=== PATIENT | female | born 1950 | race Caucasian/White ===

== ENCOUNTER 2024-06-16 10:01 | Inpatient (IN) | payer OTHER, SELFPAY ==
[2024-06-16] VITALS (34 sets, daily range): BP systolic 119–150; BP diastolic 51–82; PULSE 2–102
[2024-06-16 05:58] LABS: Glucose - Point of Care 160 mg/dl (70-99)
--- NOTE | 2024-06-16 06:00 | ED.GENMED ---
History of Present Illness
<Alexy Thorne, DO - Last Filed: 06/16/24 06:02>
General
Chief Complaint: Change in Mental Status
Source: family and ambulance crew
Time Seen by Provider: 06/16/24 06:09
Nursing documentation reviewed up to this point in time: agreed with
History of Present Illness
History of Present Illness:
74-year-old female presents to the emergency department with altered mental status. Patient
Vital signs are stable. Patient not hypoxic
Nursing note reviewed. I agree with nursing documentation up to this point in time.
Home Meds and allergies reviewed.
NUMBER AND COMPLEXITY OF PROBLEMS ADDRESSED AT THE ENCOUNTER
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
� Acute Exacerbation and/or Progression of Chronic Illness:
� Differential Diagnosis includes: TIA, CVA, infectious process including but not limited to UTI, pneumonia, aspiration pneumonia
AMOUNT AND/OR COMPLEXITY OF DATA TO BE REVIEWED AND ANALYZED
I performed an independent evaluation of the following and my interpretation is:
EKG: EKG shows sinus tachycardia rate of 101 with normal intervals. QTc is 469 corrected. Normal axis. No evidence of acute ischemia present. When compared with previous EKG dated September 2006, no obvious morphological changes
noted.
Pulse Ox: 79% on room air
Offbearer Sewer Pipe: Sinus Rhythm
CT:
X-rays:
Ultrasound:
Laboratory Studies:
Other:
Review of other/old records:
Clinical information was obtained by an independent historian:
Prescriptions/Medications Considered but not given:
Further testing considered but not performed:
RISK OF COMPLICATIONS AND/OR MORBIDITY OR MORTALITY OF PATIENT MANAGEMENT
Social determinants of health affecting care: Good Social Support
Discussion with other providers:
Escalation of care including admission/observation vs risk of discharge considered: After being observed in the emergency department, patient is unstable for discharge.
CRITICAL CARE NOTE:
Total Time (exclusive of procedures):
Update:
<Caesar Small DO - Last Filed: 06/16/24 13:04>
History of Present Illness
History of Present Illness:
74-year-old female presents to the emergency department with altered mental status. Patient
Vital signs are stable. Patient not hypoxic
Nursing note reviewed. I agree with nursing documentation up to this point in time.
Home Meds and allergies reviewed.
NUMBER AND COMPLEXITY OF PROBLEMS ADDRESSED AT THE ENCOUNTER
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
� Acute Exacerbation and/or Progression of Chronic Illness:
� Differential Diagnosis includes: TIA, CVA, infectious process including but not limited to UTI, pneumonia, aspiration pneumonia
AMOUNT AND/OR COMPLEXITY OF DATA TO BE REVIEWED AND ANALYZED
I performed an independent evaluation of the following and my interpretation is:
EKG: EKG shows sinus tachycardia rate of 101 with normal intervals. QTc is 469 corrected. Normal axis. No evidence of acute ischemia present. When compared with previous EKG dated September 2006, no obvious morphological changes
noted.
Pulse Ox: 79% on room air
Offbearer Sewer Pipe: Sinus Rhythm
CT:
X-rays:
Ultrasound:
Laboratory Studies:
Other:
Review of other/old records:
Clinical information was obtained by an independent historian:
Prescriptions/Medications Considered but not given:
Further testing considered but not performed:
RISK OF COMPLICATIONS AND/OR MORBIDITY OR MORTALITY OF PATIENT MANAGEMENT
Social determinants of health affecting care: Good Social Support
Discussion with other providers:
Escalation of care including admission/observation vs risk of discharge considered: After being observed in the emergency department, patient is unstable for discharge.
CRITICAL CARE NOTE:
Total Time (exclusive of procedures):
Update:
714 74-year-old female presents with her who states that over the last 2 to 3 days she has just been weak. Sort of staring off. states he was sick starting on Friday. He states he was really sick and had fevers and chills. She
started not feeling well about 2 days ago. Today he realized he had a bring her to the hospital and when he rolled over to get changed she vomited. The patient does have a history of a brain bleed in the past. No diarrhea noted. Is on chronic
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 Reportedly was hypoxic for EMS.
Past History
<Caesar Small, DO - Last Filed: 06/16/24 13:04>
Past History
ED Past Medical History: Other (CVA/intracranial hemorrhage, post-CVA neuropathic pain)
Social History
Living: with family
Phy Exam
<Caesar Small, DO - Last Filed: 06/16/24 13:04>
Physical Exam
Physical Exam:
CONSTITUTIONAL Patient alert and oriented to person. ill-appearing. Vital signs reviewed.
HEAD atraumatic, normocephalic.
EYES eyelids normal to inspection, Extraocular muscles intact, Conjunctiva normal, Sclera normal.
NECK normal range of motion, Trachea midline, no jugular venous distention.
RESPIRATORY CHEST No respiratory distress noted, Chest expansion equal
ABDOMEN abdomen nontender, Bowel sounds normal. No distention.
BACK normal inspection, no obvious deformities
UPPER EXTREMITY no cyanosis, no edema.
LOWER EXTREMITY range of motion normal, Motor strength normal, no cyanosis, no edema.
NEURO Speech normal, No focal motor deficits, Cranial Nerves intact to screening exam.
SKIN skin warm, dry, and normal in color.
Sepsis
Ivanlt;Alexy Thorne, DO - Last Filed: 06/16/24 06:02>
Sepsis Screen
Sepsis Screen: Possible Sepsis
Date: 06/16/24
Time: 06:00
<Caesar Small, DO - Last Filed: 06/16/24 13:04>
Sepsis Screening
Sepsis Assessment: Sepsis Ruled Out
Sepsis Screen
Sepsis Screen: Sepsis Ruled Out
Date: 06/16/24
Time: 13:04
Course
<Alexy Thorne, DO - Last Filed: 06/16/24 06:02>
Orders/Labs/Results
Orders:
Orders
06/16/24 05:47
Electrocardiogram (*1) Stat
Reason for Study: Other
Other Reason for Exam: neuro symptoms
CT Head W/o Iv Contrast Urgent
Comment:
Reason For Exam: confusion, residual deficits from prev cva
Bedside Glucose- Treatment ONCE
Cardiac Monitoring- Treatment ONCE
EKG- Treatment ONCE
06/16/24 05:50
Ondansetron Injectable [Zofran] 4 mg .ROUTE .STK-MED ONE
06/16/24 05:54
Acetaminophen [Tylenol/Feverall] 650 mg RECTAL NOW STA
06/16/24 05:57
Complete Blood Count/With Diff Urgent
Comprehensive Metabolic Panel Urgent
Erythrocyte Sed Rate Urgent
NT-proBNP Urgent
PTT Urgent
Prothrombin Time Urgent
TSH Urgent
Troponin I Urgent
06/16/24 06:02
CR Chest Portable - 1 View Urgent
Comment:
Reason For Exam: resp distress
Reason Study Needs to be Portable: Unable to Transport
06/16/24 06:11
Ondansetron Injectable [Zofran] 4 mg .ROUTE .STK-MED ONE
Ondansetron Injectable [Zofran] 4 mg IV NOW STA
06/16/24 06:26
0.9% Sodium Chloride 500 ml [Nss] 500 ml IV BOLUS
06/16/24 06:36
COVID-19 Antigen Urgent
Source: Nasal Swab
Influenza A+B Rapid Molecular Urgent
TOMMY Source: Nasal Swab
Specimen Description:
06/16/24 07:09
Cefepime HCl [Maxipime] 1,000 mg IV NOW STA
MetroNIDAZOLE 500 MG/100 ML [Flagyl 500 mg] 100 ml IV NOW
06/16/24 07:16
Sterile Water [Sterile Water For Injection] 10 ml .ROUTE .STK-MED ONE
06/16/24 07:42
Oseltamivir Phosphate [Tamiflu] 75 mg PO NOW STA
06/16/24 09:42
Sputum Culture [Respiratory Culture/Gram Stain] Routine
TOMMY Source: Sputum
Specimen Description:
Ipratropium/Albuterol Sulfate [Duoneb] 3 ml INH R Q4HPRN PRN
06/16/24 09:44
Admit/Transfer Patient As Directed
Co-Sign Provider:
Level of Care: Inpatient admission
Assign to:: Telemetry
Physician / Group: Piter Andrade
Diagnosis: Hypoxemia, Flu
Reason for Telemetry: Arrhythmia
Date to Stop Telemetry: 06/19/24
Time to Stop Telemetry: 11:00
Reason for Hospitalization: Flu + CAP
Expected length of stay greater than two midnights?: Yes
ELOS- Estimated Length of Stay in days: 3
I certify the patient meets the requirements for IP care: Yes
PRN Pain Medication Management As Directed
May give lesser potent ordered pain med per pt: Yes
preference::
Protocol:: Medication orders for pain may be administered in a
manner that supports deferring to patient preference
when the pt is:
- Requesting an ordered lesser potent pain medication.
Least to most potent pain medications are defined
as: acetaminophen < NSAID < tramadol < opioids
(morphine, oxycodone, hydromorphone).
- Requesting a lesser dose of the same medication IF
ORDERED.
- Requesting a less intrusive route of administration
if both routes are prescribed by the provider (PO <
IV).
06/16/24 09:46
Code Status As Directed
Resuscitation Status: Full Code
06/16/24 09:47
Legionella Urinary Antigen Routine
TOMMY Source: Urine
Specimen Description:
06/16/24 Lunch
Regular
At Your Request: Non-Participating
CefTRIAXone [Rocephin] 1,000 mg IV Q24H
Doxycycline [Vibramycin] 100 mg PO Q12
Sterile Water [Sterile Water For Injection] 10 ml IV Q24H
06/16/24 10:14
Bisacodyl [Dulcolax] 10 mg RECTAL [id number] PRN
Docusate W/Senna [Senokot-S] 1 tablet PO BIDPRN PRN
Polyethylene Glycol Powder [Miralax] 17 grams PO DAILYPRN PRN
06/16/24 10:14
Activity As Directed
Activity Level: Out of Bed-Early Mobility
Intake/ Output As Directed
Frequency: Per unit guidelines
Vital Signs As Directed
Frequency: Per unit guidelines
O2 Therapy [RESP] Routine
Titrate/Wean O2 to maintain O2 sat greater than (%): 90
DX Deep Vein Thrombosis Video Routine
06/16/24 10:46
ABG [Arterial Blood Gas] Routine
%Oxygen/Room Air: 7L
06/16/24 11:00
Blood Culture Q30M
TOMMY Source: Blood/Venous
Specimen Description:
06/16/24 11:03
Blood Culture Q30M
TOMMY Source: Blood/Venous
Specimen Description:
MRSA Screen Routine
TOMMY Source: Nose
Specimen Description:
06/16/24 12:00
Clonazepam [Klonopin] 0.5 mg PO Q6H
Oxycodone Controlled Release [Oxycontin (Controlled Release)] 10 mg PO Q6H
Oxycodone Controlled Release [Oxycontin (Controlled Release)] 40 mg PO Q6H
06/16/24 18:00
Duloxetine Delayed Release [Cymbalta Delayed Release] 30 mg PO QPM
Enoxaparin Sodium [Lovenox] 40 mg SC QPM
06/17/24 06:00
Basic Metabolic Panel IN AM
Complete Blood Count/With Diff IN AM
Magnesium IN AM
Pantoprazole [Protonix] 40 mg PO DAILY@0600
06/17/24 08:00
Duloxetine Delayed Release [Cymbalta Delayed Release] 30 mg PO DAILY
06/19/24 11:00
DC Protocol for Telemetry ONCE
Abnormal Lab Results
06/16/24
05:57
MCHC 31.0 L g/dL
(33.0-37.0)
MPV 11.1 H fL
(7.4-10.4)
Absolute Lymphs (auto) 0.7 L 10^3/uL
(1.2-3.4)
Lymphocytes % 14.8 L %
(20.5-51.1)
Monocytes % 10.4 H %
(1.7-9.3)
ESR 26 H mm/hour
(0-20)
APTT 52.0 H Sec
(23.4-35.0)
Chloride 94 L mmol/L
(98-107)
Carbon Dioxide 38 H mmol/L
(22-30)
Creatinine 0.4 L mg/dL
(0.6-1.0)
Glucose 161 H mg/dl
(70-99)
Calcium 8.1 L mg/dl
(8.4-10.2)
POC Glucose 160 H mg/dl
(70-99)
06/16/24 05:57
06/16/24 05:57
Vital Signs
Initial and Last Documented VS:
Initial Vital Signs
Temp Pulse Resp BP Pulse Ox
101.7 F H 110 28 129/70 76
06/16/24 05:45 06/16/24 05:45 06/16/24 05:45 06/16/24 05:45 06/16/24 05:45
Last Documented Vital Signs
Temp Pulse Resp BP Pulse Ox
98.5 F 94 18 125/57 94
06/16/24 12:54 06/16/24 10:40 06/16/24 10:40 06/16/24 10:40 06/16/24 10:40
<Caesar Small, - Last Filed: 06/16/24 13:04>
Orders/Labs/Results
Orders:
Orders
06/16/24 05:47
Electrocardiogram (*1) Stat
Reason for Study: Other
Other Reason for Exam: neuro symptoms
CT Head W/o Iv Contrast Urgent
Comment:
Reason For Exam: confusion, residual deficits from prev cva
Bedside Glucose- Treatment ONCE
Cardiac Monitoring- Treatment ONCE
EKG- Treatment ONCE
06/16/24 05:50
Ondansetron Injectable [Zofran] 4 mg .ROUTE .STK-MED ONE
06/16/24 05:54
Acetaminophen [Tylenol/Feverall] 650 mg RECTAL NOW STA
06/16/24 05:57
Complete Blood Count/With Diff Urgent
Comprehensive Metabolic Panel Urgent
Erythrocyte Sed Rate Urgent
NT-proBNP Urgent
PTT Urgent
Prothrombin Time Urgent
TSH Urgent
Troponin I Urgent
06/16/24 06:02
CR Chest Portable - 1 View Urgent
Comment:
Reason For Exam: resp distress
Reason Study Needs to be Portable: Unable to Transport
06/16/24 06:11
Ondansetron Injectable [Zofran] 4 mg .ROUTE .STK-MED ONE
Ondansetron Injectable [Zofran] 4 mg IV NOW STA
06/16/24 06:26
0.9% Sodium Chloride 500 ml [Nss] 500 ml IV BOLUS
06/16/24 06:36
COVID-19 Antigen Urgent
Source: Nasal Swab
Influenza A+B Rapid Molecular Urgent
TOMMY Source: Nasal Swab
Specimen Description:
06/16/24 07:09
Cefepime HCl [Maxipime] 1,000 mg IV NOW STA
MetroNIDAZOLE 500 MG/100 ML [Flagyl 500 mg] 100 ml IV NOW
06/16/24 07:16
Sterile Water [Sterile Water For Injection] 10 ml .ROUTE .STK-MED ONE
06/16/24 07:42
Oseltamivir Phosphate [Tamiflu] 75 mg PO NOW STA
06/16/24 09:42
Sputum Culture [Respiratory Culture/Gram Stain] Routine
TOMMY Source: Sputum
Specimen Description:
Ipratropium/Albuterol Sulfate [Duoneb] 3 ml INH R Q4HPRN PRN
06/16/24 09:44
Admit/Transfer Patient As Directed
Co-Sign Provider:
Level of Care: Inpatient admission
Assign to:: Telemetry
Physician / Group: Piter Andrade
Diagnosis: Hypoxemia, Flu
Reason for Telemetry: Arrhythmia
Date to Stop Telemetry: 06/19/24
Time to Stop Telemetry: 11:00
Reason for Hospitalization: Flu + CAP
Expected length of stay greater than two midnights?: Yes
ELOS- Estimated Length of Stay in days: 3
I certify the patient meets the requirements for IP care: Yes
PRN Pain Medication Management As Directed
May give lesser potent ordered pain med per pt: Yes
preference::
Protocol:: Medication orders for pain may be administered in a
manner that supports deferring to patient preference
when the pt is:
- Requesting an ordered lesser potent pain medication.
Least to most potent pain medications are defined
as: acetaminophen < NSAID < tramadol < opioids
(morphine, oxycodone, hydromorphone).
- Requesting a lesser dose of the same medication IF
ORDERED.
- Requesting a less intrusive route of administration
if both routes are prescribed by the provider (PO <
IV).
06/16/24 09:46
Code Status As Directed
Resuscitation Status: Full Code
06/16/24 09:47
Legionella Urinary Antigen Routine
TOMMY Source: Urine
Specimen Description:
06/16/24 Lunch
Regular
At Your Request: Non-Participating
CefTRIAXone [Rocephin] 1,000 mg IV Q24H
Doxycycline [Vibramycin] 100 mg PO Q12
Sterile Water [Sterile Water For Injection] 10 ml IV Q24H
06/16/24 10:14
Bisacodyl [Dulcolax] 10 mg RECTAL [id number] PRN
Docusate W/Senna [Senokot-S] 1 tablet PO BIDPRN PRN
Polyethylene Glycol Powder [Miralax] 17 grams PO DAILYPRN PRN
06/16/24 10:14
Activity As Directed
Activity Level: Out of Bed-Early Mobility
Intake/ Output As Directed
Frequency: Per unit guidelines
Vital Signs As Directed
Frequency: Per unit guidelines
O2 Therapy [RESP] Routine
Titrate/Wean O2 to maintain O2 sat greater than (%): 90
DX Deep Vein Thrombosis Video Routine
06/16/24 10:46
ABG [Arterial Blood Gas] Routine
%Oxygen/Room Air: 7L
06/16/24 11:00
Blood Culture Q30M
TOMMY Source: Blood/Venous
Specimen Description:
06/16/24 11:03
Blood Culture Q30M
TOMMY Source: Blood/Venous
Specimen Description:
MRSA Screen Routine
TOMMY Source: Nose
Specimen Description:
06/16/24 12:00
Clonazepam [Klonopin] 0.5 mg PO Q6H
Oxycodone Controlled Release [Oxycontin (Controlled Release)] 10 mg PO Q6H
Oxycodone Controlled Release [Oxycontin (Controlled Release)] 40 mg PO Q6H
06/16/24 18:00
Duloxetine Delayed Release [Cymbalta Delayed Release] 30 mg PO QPM
Enoxaparin Sodium [Lovenox] 40 mg SC QPM
06/17/24 06:00
Basic Metabolic Panel IN AM
Complete Blood Count/With Diff IN AM
Magnesium IN AM
Pantoprazole [Protonix] 40 mg PO DAILY@0600
06/17/24 08:00
Duloxetine Delayed Release [Cymbalta Delayed Release] 30 mg PO DAILY
06/19/24 11:00
DC Protocol for Telemetry ONCE
Abnormal Lab Results
06/16/24
05:57
MCHC 31.0 L g/dL
(33.0-37.0)
MPV 11.1 H fL
(7.4-10.4)
Absolute Lymphs (auto) 0.7 L 10^3/uL
(1.2-3.4)
Lymphocytes % 14.8 L %
(20.5-51.1)
Monocytes % 10.4 H %
(1.7-9.3)
ESR 26 H mm/hour
(0-20)
APTT 52.0 H Sec
(23.4-35.0)
Chloride 94 L mmol/L
(98-107)
Carbon Dioxide 38 H mmol/L
(22-30)
Creatinine 0.4 L mg/dL
(0.6-1.0)
Glucose 161 H mg/dl
(70-99)
Calcium 8.1 L mg/dl
(8.4-10.2)
POC Glucose 160 H mg/dl
(70-99)
06/16/24 05:57
06/16/24 05:57
Vital Signs
Initial and Last Documented VS:
Initial Vital Signs
Temp Pulse Resp BP Pulse Ox
101.7 F H 110 28 129/70 76
06/16/24 05:45 06/16/24 05:45 06/16/24 05:45 06/16/24 05:45 06/16/24 05:45
Last Documented Vital Signs
Temp Pulse Resp BP Pulse Ox
98.5 F 94 18 125/57 94
06/16/24 12:54 06/16/24 10:40 06/16/24 10:40 06/16/24 10:40 06/16/24 10:40
<Caesar Small DO - Last Filed: 06/16/24 13:04>
MDM/Problems Addressed
Differential Diagnosis Includes:
UTI, sepsis, pneumonia, viral syndrome, electrolyte imbalance, metabolic dysfunction, CVA
MDM/Problems Addressed:
Influenza, vomiting, pneumonia
<Caesar Small DO - Last Filed: 06/16/24 13:04>
*Pulse Oximetry
Patient hypoxic: no
*EKG
Interpreted by ED Provider?: Yes
Interpretation: abnormal
Rate: tachycardiac
Rhythm: sinus
[place]: normal axis
QRS Pattern: normal QRS
Ischemia: no ischemia
*Offbearer Sewer Pipe Interpretation
Rate: normal
Interpretation: normal
Rhythm: sinus
*Critical Care Note
Total Time (30-74mins, 75-104mins- exclusive of procedures): 30 minutes
Data Reviewed
Review of Other/Old Records Reveals: Records (Prior PT discharge summary)
Source: patient and spouse
<Caesar Small, DO - Last Filed: 06/16/24 13:04>
Patient Management
Discussion with other providers: Hospitalist
Escalation/DeEscalation of care consider admission/obs:
74-year-old female presented markedly hypoxic. Now slightly improved. Does have atelectasis versus infiltrate in the right lung field. Question aspiration related to vomiting versus post influenza infiltrate. Treat with Tamiflu and
broad-spectrum antibiotics. Admit. Is on large dose of pain medicine but she has been stable on these medications. Will need to continue in some form to prevent withdrawal. Trialing oral intake now
ED Attending Note
<Alexy Thorne, DO - Last Filed: 06/16/24 06:02>
-
Portions of this chart may have been created with voice recognition software.� Occasional wrong word or��sound alike� substitutions may have occurred due to the inherent limitations of voice recognition software.
Discharge Plan
Departure
Patient Disposition: Admit
Date of Disposition: 06/16/24
Time of Disposition: 07:43
Admit to: Telemetry
Presentation/result/management discussed w/ accepting MD/DO: Hospitalist
Discharge Problem:
Influenza, Pneumonia
Interventions
Interventions:
*Risk Screen - Suicide Last Done: 06/16/24 05:45
*General Assessment Last Done: 06/16/24 05:45
*Neglect/Abuse Screening Last Done: 06/16/24 05:45
ED- Fall Risk Assessment Last Done: 06/16/24 06:20
*ED COVID-19 Vaccine History Last Done: 06/16/24 06:20
ED- Pulmonary Assessment Last Done: 06/16/24 06:20
ED- Neurological Assessment Last Done: 06/16/24 05:59
ED- Cardiac Assessment Last Done: 06/16/24 06:20
[2024-06-16] MEDS: ZOFRAN 4 MG IV ×2 (06:12→20:53)
[2024-06-16] MEDS: TYLENOL/FEVERALL 650 MG RECTAL (06:14)
[2024-06-16 06:16] LABS: INR 1.02; PT 13.7 Sec (11.4-14.6)
[2024-06-16 06:24] LABS: ALT (SGPT) 10 U/L (0-35); AST (SGOT) 27 U/L (14-36); Albumin 3.5 g/dl (3.5-5.0); Alkaline Phosphatase 90 U/L (38-126); Blood Urea Nitrogen 9 mg/dl (7-17); Calcium 8.1 mg/dl (8.4-10.2); Carbon Dioxide 38 mmol/L (22-30); Chloride 94 mmol/L (98-107); Glucose 161 mg/dl (70-99); Potassium 3.8 mmol/L (3.5-5.1); Sodium 135 mmol/L (135-145); Total Bilirubin 0.4 mg/dl (0.2-1.3); Total Protein 6.6 g/dl (6.3-8.2); eGFR > 60.00
[2024-06-16 06:29] LABS: Troponin I 0.024 ng/ml
[2024-06-16] MEDS: NSS 500 IV (06:30)
[2024-06-16 06:46] LABS: % Basophils 0.2 % (0-2); % Immature Granulocytes 0.4 % (0-0.5); % Lymphocytes 14.8 % (20.5-51.1); % Monocytes 10.4 % (1.7-9.3); % Neutrophils 74.2 % (42.2-75.2); Absolute Lymphocytes 0.7 10^3/uL (1.2-3.4); Absolute Monocytes 0.5 10^3/uL (0.1-0.6); Absolute Neutrophils 3.6 10^3/uL (1.4-6.5); Hematocrit 44.2 % (37.0-47.0); Hemoglobin 13.7 g/dL (12.0-16.0); Mean Corpuscular Hgb 28.9 pg (27.0-31.0); Mean Corpuscular Volume 93.2 fL (81.0-99.0); Mean Platelet Volume 11.1 fL (7.4-10.4); Nucleated Red Blood Cells % 0 %; Platelet Count 173 10^3/uL (130-400); Red Blood Cell Count 4.74 10^6/uL (4.20-5.40); Red Cell Dist. Width 13.7 % (11.5-14.5); White Blood Cell Count 4.8 10^3/uL (4.8-10.8)
[2024-06-16 06:51] LABS: NT-proBNP 3050 pg/ml
[2024-06-16 06:54] LABS: TSH 2.61 uIU/ml (0.47-4.68)
[2024-06-16 07:24] LABS: COVID-19 Antigen Negative (Negative)
[2024-06-16] MEDS: MAXIPIME 1000 MG IV (07:27)
[2024-06-16 07:34] LABS: Erythrocyte Sed Rate 26 mm/hour (0-20)
[2024-06-16] MEDS: FLAGYL 500 MG 100 IV (07:35)
[2024-06-16] MEDS: TAMIFLU 75 MG PO (08:17)
[2024-06-16 10:59] LABS: B.E. 8.5 mmol/L; HCO3 37.6 mmol/L (21-28); O2 Saturation % 97.8 % (94-98); PO2 88 mmHg (83-108); pH 7.32 (7.35-7.45)
[2024-06-16 11:05] LABS: PCO2 73 mmHg (32-35)
[2024-06-16] MEDS: VIBRAMYCIN 100 MG PO ×2 (11:06→22:50)
[2024-06-16] MEDS: ROCEPHIN 1000 MG IV (11:06)
[2024-06-16] MEDS: VANCOCIN 530 MG IV (11:06)
[2024-06-16] MEDS: STERILE WATER FOR INJECTION 10 ML IV (11:06)
[2024-06-16] MEDS: OXYCONTIN (CONTROLLED RELEASE) 40 MG PO (12:50)
[2024-06-16] MEDS: KLONOPIN 0.5 MG PO (12:50)
[2024-06-16] MEDS: OXYCONTIN (CONTROLLED RELEASE) 10 MG PO (12:50)
[2024-06-16] MEDS: LOPRESSOR 5 MG IV (14:51)
[2024-06-16] MEDS: SOLU-MEDROL PF 40 MG IV (14:52)
[2024-06-16] MEDS: DUONEB 3 ML INH ×2 (15:37→20:06)
--- NOTE | 2024-06-16 16:02 | HPS.HSE ---
Family Physician
-
Family Physician: Holley Solomon
Chief Complaint
-
AMS
History of Present Illness
74-year-old female with GERD, chronic pain, H/O CVA/ICH with left-sided deficits that presented to the ED with her who stated that for the last 2 to 3 days she has been weak and less responsive. States that she had a illness starting this
past Friday with fevers and chills, did not feel well for about 2 days. Has been noted that she vomited x 1 while at home prior to coming into the ED. Upon arrival to the ED was febrile 101.7F, hypoxemic to 76% on RA, but normotensive.
Oxygenation improved on 15 L via NRB which was titrated down to 7 L via NC. ED labs with bicarb 38 but otherwise unremarkable. ABG subsequently showed pH 7.32 with pCO2 73 bicarb 38.6. Influenza A+ on NAAT. Head CT was without acute findings
including ICH. Chest x-ray showed patchy parenchymal opacity in the RML and LLL concerning for bilateral pneumonia. Was started on IV vancomycin and cefepime in the ED.
Medical History
Past Medical History
Past Medical History: Reports CVA and GERD
Past Surgical History: Reports None
Social History
Unable to obtain full social history at this time due to: Acuity
Family History
Family History: Not pertinent
Allergies / Home Medications
Allergies reflects when Allergies were last updated in [employer]
Home Medications with original date entered in [employer]
Allergy/Medication List:
Allergies
Allergy/AdvReac Type Severity Reaction Status Date / Time
adrenal cortex (porcine) Allergy Unknown Verified 06/16/24 05:58
erythromycin base Allergy Unknown Verified 06/16/24 05:58
fluconazole Allergy Unknown Verified 06/16/24 05:58
penicillin G Allergy Unknown Verified 06/16/24 05:58
Penicillins Allergy Unknown Verified 06/16/24 05:58
prednisone Allergy Unknown Verified 06/16/24 05:58
[id number] - Not Allergy Unknown Uncoded 06/16/24 05:58
Converted 91. See Text.
Home Medications
clonazepam 0.5 mg tablet 0.5 mg PO QID@06,12,18,00 06/16/24
duloxetine 20 mg capsule,delayed release (Cymbalta) 20 mg PO QPM 06/16/24
duloxetine 30 mg capsule,delayed release (Cymbalta) 30 mg PO DAILY 06/16/24
duloxetine 30 mg capsule,delayed release (Cymbalta) 30 mg PO QPM 06/16/24
omeprazole 20 mg capsule,delayed release 20 mg PO DAILY@0600 06/16/24
oxycodone 10 mg tablet,crush resistant,extended release 12 hr (OxyContin) 10 mg PO QID@06,12,18,00 06/16/24
oxycodone 40 mg tablet,crush resistant,extended release 12 hr (OxyContin) 40 mg PO QID@06,12,18,00 06/16/24
Review of Systems
-
Unable to obtain full review of systems at this time due to: Acuity
Physical Exam
Vital Signs
Vital Signs
Temp Pulse Resp BP Pulse Ox
98.5 F 71 20 130/55 95
06/16/24 12:54 06/16/24 15:45 06/16/24 15:45 06/16/24 15:30 06/16/24 15:45
Physical Exam
General: Well Developed, No Apparent Distress and Other (Lethargic)
HEENT: NormoCephalic, Anicteric and Moist mucous membranes
Respiratory: Clear, Non Labored Respirations and Other (Reduced sounds in all auguste); No Accessory Resp Muscle Use
Cardiac: S1/S2 and Regular Rhythm; No Murmur, Rub or Gallop
GI: Soft, Non Tender, Non Distended and Normal Bowel Sounds
Musculoskeletal: No Clubbing, No Cyanosis and No Edema
Skin: Warm and Dry; No Rash
Neuro: Awake, Nonfocal/grossly intact and Other (Lethargic, responsive to stimuli and able to speak); No Alert or Oriented
Psych: Calm
Laboratory Results
-
06/16/24 05:57
06/16/24 05:57
Laboratory Results
PT 13.7 Sec (11.4-14.6) 06/16/24 05:57
INR 1.02 06/16/24 05:57
APTT 52.0 Sec (23.4-35.0) H 06/16/24 05:57
pH 7.32 (7.35-7.45) L 06/16/24 10:46
pCO2 73 mmHg (32-35) H* 06/16/24 10:46
pO2 88 mmHg (83-108) 06/16/24 10:46
HCO3 37.6 mmol/L (21-28) H 06/16/24 10:46
Total Bilirubin 0.4 mg/dl (0.2-1.3) 06/16/24 05:57
AST 27 U/L (14-36) 06/16/24 05:57
ALT 10 U/L (0-35) 06/16/24 05:57
Alkaline Phosphatase 90 U/L (38-126) 06/16/24 05:57
Troponin I 0.024 ng/ml 06/16/24 05:57
Data Reviewed
-
Lab Data: Labs Reviewed by me and Discussed with Physician (Market Risk Specialist)
Impression/Plan
-
#Acute hypoxemic and hypercapnic respiratory failure
-Likely multifactorial with flu, CAP, possible COPD, aspiration, sedation
-May have a chronic component of respiratory acidosis; not compensated on ABG
-Home medications also include multiple sedating agents which may be contributing
-Upon arrival was hypoxemic, required up to 15 L NRB, down to 7 L recently
-ABG with pH 7.32, pCO2 73, bicarb 39; blood and sputum cultures obtained
-Started on Tamiflu and broad-spectrum antibiotics in the ED
-Pulmonary consulted
Plan
-Transition to ceftriaxone and azithromycin for empiric antibiotic
-Start empiric steroid for severe pneumonia/underlying COPD (?)
-Continue with Tamiflu for planned 5-day course
-BiPAP as tolerated, trend ABG
-Start standing DuoNebs every 6 hours
-Hold sedating medications for now
-Follow sputum and urine cultures, trend CBC and temperature curve
-Speech consult, aspiration precautions
#SVT
-Has had intermittent runs of tachycardia, narrow complex
-athletic monitor showed signs of irregularity; ECG showing AT v. ST
-No signs of MAT, have not formally picked up AF versus AFL either
-Start metoprolol IV as needed for HR sustained >130
-Monitor on telemetry to help differentiate underlying rhythm
-Consider cardiology consult
#Chronic pain
-Home medications include duloxetine, oxycodone at high doses standing
-Will need to verify home medications with family
-Holding standing dose meds for now due to lethargy
#GERD
-Home medications include omeprazole 20 mg
-No known history of Lynn's or erosive disease
-Appears stable
#H/O intracranial hemorrhage
-Per history noted to have left-sided residual deficits
-CT here without any acute findings
DVT prophylaxis: Lovenox
Diet: Pending speech therapy
CODE STATUS: Full code
[2024-06-16 16:41] LABS: HCO3 32.2 mmol/L (21-28); PCO2 64 mmHg (32-35); PO2 79 mmHg (83-108); pH 7.31 (7.35-7.45)
[2024-06-16] MEDS: CYMBALTA DELAYED RELEASE PO (18:36)
[2024-06-16] MEDS: LOVENOX 40 MG SC (19:11)
[2024-06-16 22:04] LABS: B.E. 9.3 mmol/L; HCO3 36.9 mmol/L (21-28); O2 Saturation % 99.7 % (94-98); PCO2 61 mmHg (32-35); PO2 116 mmHg (83-108); pH 7.39 (7.35-7.45)
--- NOTE | 2024-06-16 22:44 | PTCARENOTE ---
unable to verify VS captured prior to 190
[2024-06-16] MEDS: OFIRMEV 100 IV (22:49)
--- NOTE | 2024-06-16 23:14 | PTCARENOTE ---
Pt assessed. Pt drowsy but responsive. Oriented to person and place. Disoriented to time. Wiggles toes and very lightly grasps with hands on command. Pt in contractures. Pt unable to state if she has (+) sensation. Pt slightly dyspneic at rest. 6l
Nc applied. Pt was wearing BiPAP at change of shift but became more alert . New ABG drawn. Lungs decreased with slight crackles noted. Irregular on nuclear monitoring technician. (+) pulses. was at bedside and insistent that pt receive her normal dose of
oxycodone that she takes at home as well as Klonepin. Explained to pt why it was DC'd including effect on respiratory system. Explained we would look into giving pt other pain meds. He stated he felt she was in 'withdrawals' as she normally gets he
meds at 1800hrs and it was then 2000hrs. SENIOR SUPPLIER QUALITY ENGINEER came to discuss with . No s/s of distress assessed. Will give report bedside.
[2024-06-17] VITALS (13 sets, daily range): BP systolic 117–155; BP diastolic 54–99; BMI 21.0
[2024-06-17] MEDS: LR 1000 IV ×2 (00:25→12:29)
[2024-06-17] MEDS: SOLU-MEDROL PF 40 MG IV ×2 (03:25→14:22)
[2024-06-17 04:27] LABS: HCO3 37.3 mmol/L (21-28); O2 Saturation % 99.8 % (94-98); PCO2 66 mmHg (32-35); PO2 131 mmHg (83-108); pH 7.36 (7.35-7.45)
[2024-06-17] MEDS: PROTONIX PO (05:25)
[2024-06-17 05:38] LABS: % Basophils 0.1 % (0-2); % Immature Granulocytes 0.2 % (0-0.5); % Lymphocytes 5.1 % (20.5-51.1); % Monocytes 4.4 % (1.7-9.3); % Neutrophils 90.2 % (42.2-75.2); Absolute Lymphocytes 0.4 10^3/uL (1.2-3.4); Absolute Monocytes 0.4 10^3/uL (0.1-0.6); Absolute Neutrophils 7.8 10^3/uL (1.4-6.5); Hematocrit 45.9 % (37.0-47.0); Hemoglobin 14.3 g/dL (12.0-16.0); Mean Corp Hgb Conc. 31.2 g/dL (33.0-37.0); Mean Corpuscular Hgb 28.8 pg (27.0-31.0); Mean Corpuscular Volume 92.5 fL (81.0-99.0); Mean Platelet Volume 11.3 fL (7.4-10.4); Nucleated Red Blood Cells % 0 %; Platelet Count 170 10^3/uL (130-400); Red Blood Cell Count 4.96 10^6/uL (4.20-5.40); Red Cell Dist. Width 13.7 % (11.5-14.5); White Blood Cell Count 8.7 10^3/uL (4.8-10.8)
[2024-06-17 05:50] LABS: Blood Urea Nitrogen 10 mg/dl (7-17); Carbon Dioxide 36 mmol/L (22-30); Chloride 97 mmol/L (98-107); Estimated Creatinine Clearance 79 ml/min; Glucose 167 mg/dl (70-99); Magnesium 1.8 mg/dl (1.6-2.3); Potassium 4.5 mmol/L (3.5-5.1); Sodium 140 mmol/L (135-145); eGFR > 60.00
[2024-06-17] MEDS: DUONEB 3 ML INH ×4 (07:05→19:46)
--- NOTE | 2024-06-17 07:58 | CON.PUL ---
Consultation
Consultation Request
Date/Time Consultation Requested: 06/17/2024-7:30 AM
Date/Time Consultation Performed: 06/17/2024-8 AM
Requesting Provider: Hospitalist
Performing Provider: Dr. Donahue
Reason for Consultation: Shortness of breath
Medical History
-
Chief Complaint: Shortness of breath
History of Present Illness:
74-year-old female with a history of GERD, chronic pain, CVA/intracranial hemorrhage with left-sided deficits presented with 2 to 3 days of weakness, less responsive and shortness of breath noted to have influenza and pneumonia-pulmonary consulted
for respiratory insufficiency 06/17/2024. Patient is arousable. is at the bedside. She feels much improved and the states that she is much better than she was when she came to the emergency room yesterday. Show is no complaints of
chest congestion, but has a nonproductive cough. No chest pain, pleurisy, hemoptysis, abdominal pain, or swelling.
Past Medical History
Past Medical History: None (CVA/intracranial hemorrhage with left-sided deficits. ADL dysfunction. GERD. Chronic pain.)
Social History
Tobacco: Former Smoker (Quit 30 years ago)
Alcohol: None
Drug: None
Personal:
Living: With Family
Occupational Exposures: No known asbestos exposure
Environmental Exposures: No known tuberculosis exposure
Family History
Family History: Reviewed & Not Pertinent
Allergies / Home Medications
Allergies
Allergy/AdvReac Type Severity Reaction Status Date / Time
adrenal cortex (porcine) Allergy Unknown Verified 06/16/24 05:58
erythromycin base Allergy Unknown Verified 06/16/24 05:58
fluconazole Allergy Unknown Verified 06/16/24 05:58
penicillin G Allergy Unknown Verified 06/16/24 05:58
Penicillins Allergy Unknown Verified 06/16/24 05:58
prednisone Allergy Unknown Verified 06/16/24 05:58
NOT.[id number] - Not Allergy Unknown Uncoded 06/16/24 05:58
Converted 91. See Text.
Home Medications
�Medication �Instructions �Recorded �Confirmed �Last Taken �Type
clonazepam 0.5 mg tablet 0.5 mg PO QID@06,12,18,00 06/16/24 06/16/24 06/16/24 08:20 History
duloxetine 20 mg capsule,delayed 20 mg PO QPM 06/16/24 06/16/24 Unknown History
release (Cymbalta)
duloxetine 30 mg capsule,delayed 30 mg PO DAILY 06/16/24 06/16/24 06/16/24 08:20 History
release (Cymbalta)
duloxetine 30 mg capsule,delayed 30 mg PO QPM 06/16/24 06/16/24 Unknown History
release (Cymbalta)
omeprazole 20 mg capsule,delayed 20 mg PO DAILY@0600 06/16/24 06/16/24 06/16/24 History
release
oxycodone 10 mg tablet,crush 10 mg PO QID@06,12,18,00 06/16/24 06/16/24 06/16/24 08:20 History
resistant,extended release 12 hr
(OxyContin)
oxycodone 40 mg tablet,crush 40 mg PO QID@06,12,18,00 06/16/24 06/16/24 06/16/24 08:20 History
resistant,extended release 12 hr
(OxyContin)
Review of Systems
-
Unable to Obtain full review of systems at this time due to: Other (Per HPI)
Vitals / Labs / Diagnostic Testing
Vital Signs
Temp Pulse Resp BP Pulse Ox
98.3 F 87 23 152/62 92
06/17/24 03:00 06/17/24 07:45 06/17/24 07:45 06/17/24 06:00 06/17/24 07:45
Lab Data
06/17/24 05:02
06/17/24 05:02
Laboratory Results
06/16/24 06/16/24 06/16/24
10:46 16:30 21:56
pH 7.32 L 7.31 L 7.39
pCO2 73 H* 64 H 61 H
pO2 88 79 L 116 H
HCO3 37.6 H 32.2 H 36.9 H
O2 Delivery Level
06/17/24
04:21
pH 7.36
pCO2 66 H
pO2 131 H
HCO3 37.3 H
O2 Delivery Level
Microbiology
06/16/24 06:36 Nasal Swab Influenza Types A & B ([facility]) - Final
Influenza A Positive, NAAT
Diagnostic Testing:
Physical Exam
-
Exam:
Well-nourished and well-developed in no apparent distress
HEENT-atraumatic, normocephalic
Neck-supple, no JVD, no bruit
Heart-regular rate and rhythm-no murmurs, rubs or gallops
Chest with diminished breath sounds, kyphoscoliosis, rare crackles at the left greater than right base and few rhonchi
Back without tenderness
Abdomen-soft, nontender, nondistended, no hepatosplenomegaly
Extremities-no cyanosis, clubbing, edema and good peripheral pulses
Integument-intact, no rashes, lesions or ecchymosis
Neurology-alert and oriented,, left hemiparesis
Assessment
-
74-year-old female who is unvaccinated for influenza this year with a history of GERD, chronic pain, CVA/intracranial hemorrhage with left-sided deficits presented with 2 to 3 days of weakness, less responsive and shortness of breath noted to have
influenza and pneumonia-pulmonary consulted for respiratory insufficiency 06/17/2024.
Hypoxemic and hypercapnic respiratory failure
Influenza
Community-acquired pneumonia
Aspiration risk
SVT/paroxysmal atrial tachycardia
Hyperglycemia
Conditions present prior to admission:
CVA/intracranial hemorrhage with left-sided deficits.
ADL dysfunction.
GERD.
Chronic pain.
Plan
Respiratory decompensation and the patient to might have some underlying lung disease from previous smoking due to influenza and community-acquired pneumonia/aspiration risk
Supplemental oxygen as needed
Aspiration precautions
Incentive spirometry
Mucolytic's
Nebulizers as needed
Follow radiographically
Check cultures
Sputum culture if able
Influenza positive
Isolation per protocol-droplet precautions
Tamiflu
Empiric antibiotics-ceftriaxone and doxycycline initiated
Monitor for arrhythmias-paroxysmal atrial tachycardia
Cardiology evaluation-correspondence reviewed
Consider low-dose huuk-[id number]-ok objection from a pulmonary perspective
DVT prophylaxis-on Lovenox
Nutrition
Early mobilization
Reviewed with at the bedside as well as nursing
Diagnostic data:
Chest x-ray 06/16/2024-patchy parenchymal opacification right middle lobe likely representing pneumonia as well as a left lower lobe
Data Reviewed
-
EKG: Report reviewed by me
Radiology: Report reviewed by me
Medical Tests (Nuc Med, Echo etc): Report reviewed by me
Labs: Labs reviewed by me
Old Records: Reviewed
Total Time Spent with Patient (in minutes): 55
--- NOTE | 2024-06-17 08:21 | CON.CAR ---
Addendum entered and electronically signed by Bryan Hamm MD 06/17/24 10:33:
I saw and examined the patient.
The FIELD CLERK's note was reviewed and I agree with the note.
74-year-old woman with distant history of intracranial hemorrhage, chronic pain, chronic narcotic use who is admitted with flu and pneumonia. Patient has not been feeling well over the last 5 days was presented with decreased responsiveness,
weakness and shortness of breath. Patient admitted with influenza A and pneumonia. Patient noted to have runs of nonsustained narrow complex tachycardia. Patient with no prior cardiac history. Particular no history of A-fib. Episodes most
consistent with paroxysmal atrial tachycardia patient has received 1 dose of IV Lopressor. Frequency of PAT has decreased from yesterday till today. Patient currently not on oral meds because swallowing is going to be assessed. In addition due to
lethargy kind of her medical regimen is being reviewed by the hospitalist. Respiratory status is currently stable patient does have wheezing on exam. Otherwise appears euvolemic no evidence of heart failure. Chest x-ray from 06/16/2024 with patchy
parenchymal opacity right to mid lower lung and left lower lung consistent with bilateral pneumonia small right pleural effusion.
PAT
-Monitor on telemetry
-Consider low-dose beta-luisito if okay with primary team. Patient does have some degree of wheezing which would need to be monitored closely. If pulmonary would prefer to avoid beta-blockers then we can continue to observe and then if she has
increased frequency of PAT can add IV Cardizem. Currently patient would receive IV meds until cleared from a swallowing standpoint
-Eventual echocardiogram will allow additional recovery from influenza//pneumonia
-No at the current time there is no clear evidence of A-fib. If patient were to develop A-fib then I would not initiate anticoagulation due to history of intracranial hemorrhage. Patient would need risk assessment by neurology.
.
Pneumonia/influenza.
-Treatment of pneumonia and influenza as directed by primary team
-
Original Note:
Consultation
Consultation Request
Date/Time Consultation Requested: 06/16/241926
Date/Time Consultation Performed: 06/17/24819
Requesting Provider: Dr. Andrade
Performing Provider: Thao DE LA TORRE for Dr. Hamm
Reason for Consultation: Arrhythmia
Medical History
-
Chief Complaint: weakness, decreased responsiveness
History of Present Illness:
74 y/o female with GERD, chronic pain, hx ICH who is here for evaluation of decreased responsiveness, weakness, shallow breathing noted by patient's , who is at bedside and assists with history. There is also fever and chills, and an episode
of vomiting. She is admitted for fluA and PNA and is being treated with tamiflu, fluids, O2, and antibiotics. She appears tired, but in no distress.
Past Medical History
Past Medical History: CVA (hemorrhagic ) and GERD
Social History
Personal:
Living: With Family
Family History
Family History: Reviewed & Not Pertinent
Allergies / Home Medications
Allergy/AdvReac Type Severity Reaction Status Date / Time
adrenal cortex (porcine) Allergy Unknown Verified 06/16/24 05:58
erythromycin base Allergy Unknown Verified 06/16/24 05:58
fluconazole Allergy Unknown Verified 06/16/24 05:58
penicillin G Allergy Unknown Verified 06/16/24 05:58
Penicillins Allergy Unknown Verified 06/16/24 05:58
prednisone Allergy Unknown Verified 06/16/24 05:58
NOT.[id number] - Not Allergy Unknown Uncoded 06/16/24 05:58
Converted 91. See Text.
�Medication �Instructions �Recorded �Confirmed �Type
clonazepam 0.5 mg tablet 0.5 mg PO QID@06,12,18,00 06/16/24 06/16/24 History
duloxetine 20 mg capsule,delayed 20 mg PO QPM 06/16/24 06/16/24 History
release (Cymbalta)
duloxetine 30 mg capsule,delayed 30 mg PO DAILY 06/16/24 06/16/24 History
release (Cymbalta)
duloxetine 30 mg capsule,delayed 30 mg PO QPM 06/16/24 06/16/24 History
release (Cymbalta)
omeprazole 20 mg capsule,delayed 20 mg PO DAILY@0600 06/16/24 06/16/24 History
release
oxycodone 10 mg tablet,crush 10 mg PO QID@06,12,18,00 06/16/24 06/16/24 History
resistant,extended release 12 hr
(OxyContin)
oxycodone 40 mg tablet,crush 40 mg PO QID@06,12,18,00 06/16/24 06/16/24 History
resistant,extended release 12 hr
(OxyContin)
Review of Systems
-
History Source: Patient, Family and Other (chart)
All other systems: Negative unless noted
Constitutional: Fever and Chills
Respiratory: Trouble Breathing
Abdomen/GI: Nausea and Vomiting
Neurological: Weakness and Other (decreased responsiveness)
Physical Exam
Vital Signs
Temp Pulse Resp BP Pulse Ox
98.3 F 81 25 137/99 92
06/17/24 03:00 06/17/24 08:15 06/17/24 08:15 06/17/24 08:00 06/17/24 08:15
Lab Results
06/17/24 05:02
06/17/24 05:02
Troponin I 0.024 ng/ml 06/16/24 05:57
Vke-Z-Vugxlqmxpde Pept 3050 pg/ml 06/16/24 05:57
Physical Exam
General: No Apparent Distress
HEENT: Normocephalic and Anicteric
Respiratory: Wheezes, Rhonchi and Other (on O2 by NC)
Cardiac: Regular Rhythm
Musculoskeletal: No Edema
Neuro: Awake and Other (lethargic)
Psych: Calm
Impression / Plan
-
Flu A:
-getting Tamiflu and supportive care per primary team
Pneumonia:
-on IV antibiotics
-on O2 by NC
-pulmonary involved
Arrhythmia:
-I have reviewed EKGs and telemetry and she has short bursts of atrial tachycardia to my review. I do not see any Afib. This is in the setting of acute illness as above, and this is improving as she improves. Currently no palps, though it sounds
like she felt some when she was vomiting.
-she has received 1 dose of IV metoprolol, which is ordered PRN- continue this for now. Can transition to PO once she is taking PO, if needed. Monitor telemetry. Can check echo after further recovery.
Chronic pain:
-management per primary team
GERD:
-on PPI as OP
hx ICH:
-per , cause was not known and it was located in pontine region and she has had the pain issues since
-head CT negative here
Data Reviewed
-
EKG: Tracing Personally Visualized and interpreted (SR to atrial tachycardia)
Radiology: Report Reviewed by me (CXR: Patchy parenchymal opacity within the right middle lower lung and the left lower lung, likely representing bilateral pneumonia.)
CT Scan: Report Reviewed by me (06/16/24: No acute intracranial abnormality noted.)
Labs: Labs Reviewed by me
--- NOTE | 2024-06-17 08:30 | PTCARENOTE ---
Assumed care of patient this morning. Pt's at the bedside and is concerned that the patient has been without her medications, Oxycodone, Cymbalta, and Klonopin for '24 hours.' He has brought up this concern now 3 times. RN explained that
concerns would be relayed to , which they were through TT and he stated he would come speak with him. Pt's is awake but drowsy and still confused. Patient has no withdrawal symptoms at this time. Assessment, care and VS as charted.
[2024-06-17] MEDS: ROXICODONE 10 MG PO ×3 (10:19→20:00)
[2024-06-17] MEDS: ROCEPHIN 1000 MG IV (10:20)
[2024-06-17] MEDS: VIBRAMYCIN 100 MG PO ×2 (10:20→20:00)
[2024-06-17] MEDS: CYMBALTA DELAYED RELEASE 30 MG PO ×2 (10:20→17:27)
[2024-06-17] MEDS: SENOKOT-S 1 TABLET PO (10:21)
--- NOTE | 2024-06-17 10:21 | PTOTSP ---
Dysphagia Evaluation
Patient has acute on chronic risk factors for dysphagia/aspiration (i.e., influenza, PNA, possible COPD; prior left pontine stroke, GERD). denied signs of significant dysphagia or repeated respiratory infections prior to admission.
Recommend:
1. Cautious IDDSI Level 4 Puree, Thin Liquids
2. Medications: in puree
3. Strategies: PO only when awake/alert, full supervision/assistance, SINGLE sips, reflux precautions
4. Oral care 3x daily
5. Dysphagia therapy at the acute care level. Trial advanced solids if/when dentures present and CASSY/mentation appropriate. Determine if/when video swallow study may be appropriate.
--- NOTE | 2024-06-17 10:47 | PTCARENOTE ---
was at the bedside and addressed pt's 's concerns and is agreeable to plan.
--- NOTE | 2024-06-17 11:38 | CM ---
CM following re: discharger planning.
Reviewed pt's chart, met with pt and pt's Miguel A at bedside.
Pt is a 74 year old female, admitted with primary dx of Acute hypoxemic and hypercapnic respiratory failure. Pulmonology following.
Pt lives with in a 2SH, no steps to enter, has 2 supportive children. Per , pt is a bed ridden and he provided 24/7 care to the pt with private paid caregiver services 6-7 hours daily. Per pt had At home rehab in the past and
pt's feels that pt will need them at discharge. Pt's preferred pt returns back home at discharge and he and caregivers will continue to care for pt at home.
PCP: Holley Solomon
Pharmacy: [facility].
D/C plan: home with 24/7 family/caregiver services.
CM will follow with discharge plan updates as hospitalization progresses
[2024-06-17] MEDS: KLONOPIN 0.5 MG PO ×2 (12:29→18:39)
--- NOTE | 2024-06-17 14:03 | W.PN.HOSP.TC ---
Today's Communication/Plan
-
Add on home medications on as-needed basis with planned slow titration back to full regimen
Continue with antibiotics/steroid/Tamiflu
Pur�ed diet
Aspiration precautions
Assessment / Plan
Assessment / Plan
#Acute hypoxemic and hypercapnic respiratory failure
-Likely multifactorial with flu, CAP, possible COPD, aspiration, sedation
-Suspect aspiration and oversedation may be the predominant issue
-Upon arrival was hypoxemic, required up to 15 L NRB and intermittent BiPAP
-ABG with pH 7.32, pCO2 73, bicarb 39; blood and sputum cultures obtained
-Hypercapnia did improve with BiPAP, mental status now improving
-Started on Tamiflu, steroid, and empiric antibiotics upon admission
-Currently on 1 L O2 with SpO2 in high 90s
Plan
-Order procalcitonin, consider discontinuation of CTX/Doxy
-Continue with steroids and bronchodilators for now
-Continue with Tamiflu twice daily, plan 5-day course
-Wean oxygen as possible
-Aspiration precautions
-Consider bedside PFTs here
-BiPAP if worsening signs of hypercapnia
#Acute Metabolic encephalopathy
-Likely multifactorial with hypercapnia, high doses of home sedating medications
-Holding clonazepam and oxycodone oral doses; hypercapnia improved with BiPAP
-Mental status improved, more responsive today though does still have some lethargy
-Resumed her home medications on as-needed basis
-Will titrate back onto home regimen slowly
-Continue to monitor clinically
#SVT
-Has had intermittent runs of tachycardia, narrow complex
-sand slinger showed signs of irregularity; ECG showing AT v. ST
-No signs of MAT, have not formally picked up AF versus AFL either
-Start metoprolol IV as needed for HR sustained >130
-Monitor on telemetry to help differentiate underlying rhythm
-Consider cardiology consult
#Chronic pain
-Home medications include duloxetine, oxycodone at high doses standing
-Will need to verify home medications with family
-Holding standing dose meds for now due to lethargy
#GERD
-Home medications include omeprazole 20 mg
-No known history of Lynn's or erosive disease
-Appears stable
#H/O intracranial hemorrhage
-Per history noted to have left-sided residual deficits
-CT here without any acute findings
DVT prophylaxis: Lovenox
Diet: Pur�ed diet
CODE STATUS: Full code
Anticipated Discharge: > 48 hours
Subjective/Interval History
-
Date of Service: June 17, 2024
Objective Data
-
Labs:
Laboratory Results
06/17/24 06/17/24
04:21 05:02
WBC 8.7
Hgb 14.3
Hct 45.9
Plt Count 170
HCO3 37.3 H
Sodium 140
Potassium 4.5
Chloride 97 L
Carbon Dioxide 36 H
BUN 10
Creatinine 0.4 L
Glucose 167 H
Calcium 8.0 L
Vital Signs:
Vital Signs
Temp Pulse Resp BP Pulse Ox
96.4 F L 59 14 153/76 94
06/17/24 11:05 06/17/24 11:16 06/17/24 11:16 06/17/24 10:00 06/17/24 11:49
--- NOTE | 2024-06-17 14:45 | WOUNDNOTE ---
WON RN note: Patient admitted with influenza, pneumonia.
See H&P for complete history. Lives with .
PMH: CVA-L sided weakness, UTI, pneumonia, ex smoker.
Wound Location and type/assessment: Patient admitted with: R breast small superficial ulcer, unsure of source. Base yellow and pink, no complaints of pain, scant drainage. No other skin issues reported by nurse Coffey.
Appetite: Good.
Pressure redistribution devices in place: [employer] air bed, pillow under calves.
Plan: Silicone foam in use, will add honey gel to wound care. Called [facility] for honey gel and will
confirm orders with hospitalist. Update nurse, care plan and will follow as needed.
Note to case management of equipment requested for discharge: None.
Recommend follow up at wound care center upon discharge.
[2024-06-17] MEDS: LOVENOX 40 MG SC (17:26)
[2024-06-17 20:45] LABS: Hepatitis C Antibody Negative (Negative)
[2024-06-18] VITALS (12 sets, daily range): BP systolic 116–137; BP diastolic 53–82
[2024-06-18] MEDS: SOLU-MEDROL PF 40 MG IV ×2 (01:50→13:31)
[2024-06-18] MEDS: LR 1000 IV ×2 (01:52→17:42)
[2024-06-18] MEDS: KLONOPIN 0.5 MG PO ×4 (01:53→21:44)
--- NOTE | 2024-06-18 02:19 | PTCARENOTE ---
Caring for pt overnight. at beside. very lech[place] we continue with her Klonopin & oxy. pt aaox2, very drowsy. Will fall asleep immediately after speaking with her. Arousable to verbal & tactile. NSR on montior, remains on 1LNC 93%. Q2T.
IVF. IVabx. NO other issues at this time.
[2024-06-18] MEDS: ROXICODONE 10 MG PO (05:30)
[2024-06-18] MEDS: PROTONIX 40 MG PO (05:30)
[2024-06-18 06:22] LABS: % Immature Granulocytes 0.4 % (0-0.5); % Lymphocytes 11.4 % (20.5-51.1); % Monocytes 5.8 % (1.7-9.3); % Neutrophils 82.4 % (42.2-75.2); Absolute Lymphocytes 0.6 10^3/uL (1.2-3.4); Absolute Monocytes 0.3 10^3/uL (0.1-0.6); Hematocrit 43.5 % (37.0-47.0); Hemoglobin 13.6 g/dL (12.0-16.0); Mean Corp Hgb Conc. 31.3 g/dL (33.0-37.0); Mean Corpuscular Volume 92.8 fL (81.0-99.0); Mean Platelet Volume 10.4 fL (7.4-10.4); Nucleated Red Blood Cells % 0 %; Platelet Count 198 10^3/uL (130-400); Red Blood Cell Count 4.69 10^6/uL (4.20-5.40); Red Cell Dist. Width 13.6 % (11.5-14.5); White Blood Cell Count 4.8 10^3/uL (4.8-10.8)
[2024-06-18 06:58] LABS: Procalcitonin 0.12 ng/ml (0.0-0.25)
[2024-06-18 07:08] LABS: Blood Urea Nitrogen 16 mg/dl (7-17); Calcium 8.3 mg/dl (8.4-10.2); Chloride 96 mmol/L (98-107); Estimated Creatinine Clearance 79 ml/min; Glucose 146 mg/dl (70-99); Potassium 4.4 mmol/L (3.5-5.1); Sodium 141 mmol/L (135-145); eGFR > 60.00
[2024-06-18] MEDS: DUONEB 3 ML INH ×3 (07:11→15:26)
[2024-06-18 07:19] LABS: Carbon Dioxide 34 mmol/L (22-30)
--- NOTE | 2024-06-18 09:03 | W.PN.CD ---
Today's Communication / Plan
-
No PAT over last 24 hours. resoleve with Tx of pulmary issues. Also neb may have contributed.
wheezing impro radha
No additional therapy at this time
Montior on tele
- if recurrence and taking PO then start Toprol XL 25mg.
Echo next week. Can be done as outpatirtn order if she is discharge before then
call if additional assistance needed
Impression / Plan
-
Flu A:
-getting Tamiflu and supportive care per primary team
Pneumonia:
-on IV antibiotics
-on O2 by NC
-pulmonary involved
PAT
-Short runs of PAT without clear evidence of A-fib. Patient received 1 dose of IV metoprolol but did not receive additional oral since she was unable to take oral meds at the time. Also patient had some active wheezing. Frequency reduced as
patient's respiratory issues improved.
-Eventual echo after additional recovery from influenza
- NOTE: If patient develops A-fib in future I would not start anticoagulation unless risk was assessed by neurology. Patient has previous history of intracranial head hemorrhage.
.
Chronic pain:
-Chronic narcotic use
-management per primary team
prior hx ICH:
-per , cause was not known and it was located in [place] region and she has had the pain issues since
-head CT negative here
Physical Exam
Vital Signs/Labs
Vital Signs
Temp Pulse Resp BP Pulse Ox
97.7 F 71 16 137/62 98
06/18/24 03:27 06/18/24 07:13 06/18/24 07:13 06/18/24 04:00 06/18/24 07:13
06/17/24 06/18/24 06/19/24
06:59 06:59 06:59
Actual Weight 60.8 kg
06/18/24 05:57
06/18/24 05:45
PT 13.7 Sec (11.4-14.6) 06/16/24 05:57
INR 1.02 06/16/24 05:57
APTT 52.0 Sec (23.4-35.0) H 06/16/24 05:57
Magnesium 1.8 mg/dl (1.6-2.3) 06/17/24 05:02
TSH 2.61 uIU/ml (0.47-4.68) 06/16/24 05:57
06/16/24
05:57
Kcp-G-Psmzxnihehk Pept 3050
LAB Results
06/16/24
05:57
Troponin I 0.024
Physical Exam
Constitutional: No acute distress
Cardiovascular: Rhythm & rate is regular
Respiratory: Wheeze Present
GI: Soft
Neuro/Psych: Alert
Data Reviewed
-
Date of Service: June 18, 2024
Medical Decision Making: Reviewed Test Results
Medical Tests (PFT, Pathology etc): Report Reviewed by me
Labs: Labs Reviewed by me
[2024-06-18] MEDS: FLUSH (NSS) 1 FLUSH IV ×2 (09:12→09:17)
[2024-06-18] MEDS: ROCEPHIN 1000 MG IV (09:12)
[2024-06-18] MEDS: VIBRAMYCIN 100 MG PO ×2 (09:13→20:32)
[2024-06-18] MEDS: CYMBALTA DELAYED RELEASE 30 MG PO ×2 (09:13→17:33)
[2024-06-18] MEDS: SENNA SYRUP 8.8 MG PO (09:40)
[2024-06-18] MEDS: ROXICODONE 20 MG PO ×4 (09:40→21:44)
--- NOTE | 2024-06-18 10:18 | W.PN.PUL.V3 ---
Today's Communication / Plan
-
Wean oxygen
Continue antibiotics
Aspiration precautions
Monitor for arrhythmias
Pulmonary will sign off
Assessment
-
74-year-old female who is unvaccinated for influenza this year with a history of GERD, chronic pain, CVA/intracranial hemorrhage with left-sided deficits presented with 2 to 3 days of weakness, less responsive and shortness of breath noted to have
influenza and pneumonia-pulmonary consulted for respiratory insufficiency 06/17/2024.
Hypoxemic and hypercapnic respiratory failure
Influenza
Community-acquired pneumonia
Aspiration risk
SVT/paroxysmal atrial tachycardia
Hyperglycemia
Conditions present prior to admission:
CVA/intracranial hemorrhage with left-sided deficits.
ADL dysfunction.
GERD.
Chronic pain.
Plan
Respiratory decompensation and the patient to might have some underlying lung disease from previous smoking due to influenza and community-acquired pneumonia/aspiration risk
Supplemental oxygen as needed-1 L - 93%
Aspiration precautions continue
Speech therapy evaluation 06/17/2024-level 4 pur�ed diet with thin liquids
Incentive spirometry
Mucolytic's
Nebulizers-DuoNebs
Methylprednisolone 40 mg IV every 12 hours-begin to reduce in the next 24 hours
Follow radiographically
Cultures reviewed
Sputum culture if able
Influenza positive
Isolation per protocol-droplet precautions
Tamiflu
Empiric antibiotics-ceftriaxone and doxycycline-finish finite course
Monitor for arrhythmias-paroxysmal atrial tachycardia
Cardiology evaluation-correspondence reviewed-no PAT over the last 24 hours-initiate Toprol-XL 25 mg if recurrence occurs
Consider low-dose quaz-oczylnz-lg objection from a pulmonary perspective
Echocardiogram next week-can be done as an outpatient
DVT prophylaxis-on Lovenox
Nutrition
Early mobilization
Respiratory status has improved-wean FiO2, continue antibiotics, aspiration precautions-pulmonary will sign off-please call with questions
Reviewed with at the bedside as well as nursing
Diagnostic data:
Chest x-ray 06/16/2024-patchy parenchymal opacification right middle lobe likely representing pneumonia as well as a left lower lobe
Subjective Data
-
Date of Service:
Date of Service: June 18, 2024
Chief Complaint: Pulmonary Follow Up, Dyspnea Follow Up and Pneumonia Follow Up
Subjective:
More alert, no complaints of shortness of breath at rest, no complaints of chest congestion, productive cough or abdominal pain
Review of Systems
General: Other (Per HPI)
Objective Data
Data Reviewed
Vital Signs / I&O:
Vital Signs
Temp Pulse Resp BP Pulse Ox
97.7 F 71 16 137/62 98
06/18/24 03:27 06/18/24 07:13 06/18/24 07:13 06/18/24 04:00 06/18/24 07:13
Intake and Output
06/17/24 06/18/24 06/19/24
06:59 06:59 06:59
Intake Total 840 / 840
Output Total 500 / 500
Balance 340 / 340
SaO2: 98
Nasal Cannula flow liters per minute: 2
Physical Exam
General: Respiratory Distress (n) and Comfortable
HEENT: Normocephalic, Anicteric and Moist Mucous Membranes
Cardiovascular: Regular Rhythm
Respiratory: Crackles, Rhonchi, Non-Labored Respirations, Accessory Resp Muscle Use (n) and Stridor (n)
GI: Soft, Non Distended and Non Tender
Neurology: Awake and Alert
Skin: Warm, Good Color, Cyanosis (n), Jaundice (n) and Rash (n)
Labs/Micro/Reports
Lab Data
06/18/24 05:57
06/18/24 05:45
Microbiology
06/16/24 11:03 Nose MRSA Screen - Final
No Methicillin Resistant Staphylococcus aureus isolated.
06/16/24 11:00 Blood/Venous Blood Culture - Preliminary
No Growth in 24 hours- Final report to follow
06/16/24 11:03 Blood/Venous Blood Culture - Preliminary
No Growth in 24 hours- Final report to follow
06/16/24 06:36 Nasal Swab Influenza Types A & B ([facility]) - Final
Influenza A Positive, NAAT
[2024-06-18] MEDS: LR IV (11:31)
--- NOTE | 2024-06-18 11:35 | PTCARENOTE ---
Addendum entered by Kg Reyes RN 06/18/24 18:02:
Patient had redness to left side of face earlier in shift, no other rash or redness on rest of body, MD notified, redness of face has now subsided. Will continue to monitor.
Original Note:
Patient drowsy, but arousable. at bedside. VSS. NSR on monitor. 2L NC, sats 93%. C/o constipation, see mar. Poor appetite. Continuing to closely monitor patient.
--- NOTE | 2024-06-18 11:35 | W.PN.HOSP.TC ---
Addendum entered and electronically signed by Piter Andrade DO 06/18/24 14:26:
CDI:
Opioid/benzodiazepine use with dependence.
Sepsis POA with potential source of infection and positive SIRS criteria though more likely response from aspiration
Original Note:
Today's Communication/Plan
-
Increase oxycodone as needed to 20 mg
Continue with clonazepam
Monitor for sedation
Continue Tamiflu/steroids/antibiotics
Assessment / Plan
Assessment / Plan
#Acute hypoxemic and hypercapnic respiratory failure
-Likely multifactorial with flu, CAP, possible COPD, aspiration, sedation
-Suspect aspiration and oversedation may be the predominant issue
-Upon arrival was hypoxemic, required up to 15 L NRB and intermittent BiPAP
-ABG with pH 7.32, pCO2 73, bicarb 39; blood and sputum cultures obtained
-Hypercapnia did improve with BiPAP, mental status now improving
-Started on Tamiflu, steroid, and empiric antibiotics upon admission
-Currently on 1 L O2 with SpO2 in high 90s
Plan
-Will continue antibiotics for today, plan 5-day course
-Continue with steroids and bronchodilators for now
-Continue with Tamiflu twice daily, plan 5-day course
-Wean oxygen as possible
-Aspiration precautions
#Acute Metabolic encephalopathy
-Likely multifactorial with hypercapnia, high doses of home sedating medications
-Holding clonazepam and oxycodone oral doses; hypercapnia improved with BiPAP
-Mental status improved, more responsive today though does still have some lethargy
-Resumed her home medications on as-needed basis
Plan
-Increase oxycodone as needed to 20 mg
-Continue with home lorazepam as scheduled
-Will titrate back onto home regimen slowly
-Monitor for sedation
#Atrial tachycardia
-Has had intermittent runs of tachycardia, narrow complex
-residential monitor showed signs of irregularity; ECG showing AT v. ST
-No signs of MAT, have not formally picked up AF versus AFL either
-Improved as respiratory status is improved
-Will consider 25 mg metoprolol succinate if recurrent
#Chronic pain
-Home medications include duloxetine, oxycodone at high doses standing
-Will need to verify home medications with family
-Holding standing dose meds for now due to lethargy
#GERD
-Home medications include omeprazole 20 mg
-No known history of Lynn's or erosive disease
-Appears stable
#H/O intracranial hemorrhage
-Per history noted to have left-sided residual deficits
-CT here without any acute findings
DVT prophylaxis: Lovenox
Diet: Pur�ed diet
CODE STATUS: Full code
Anticipated Discharge: > 48 hours
Subjective/Interval History
-
Date of Service: June 18, 2024
Seen and examined at the bedside. No acute events reported overnight. AFVSS on low-level oxygen this morning
at bedside, states he thinks she looks improved. Worrisome of developing withdrawal from her home regimen.
Denies any new complaints, has some pain at time of my assessment though not severe
Objective Data
-
Labs:
Laboratory Results
06/18/24 06/18/24
05:45 05:57
WBC 4.8
Hgb 13.6
Hct 43.5
Plt Count 198
Sodium 141
Potassium 4.4
Chloride 96 L
Carbon Dioxide 34 H
BUN 16
Creatinine 0.4 L
Glucose 146 H
Calcium 8.3 L
Vital Signs:
Vital Signs
Temp Pulse Resp BP Pulse Ox
97.7 F 79 17 123/58 87
06/18/24 03:27 06/18/24 11:04 06/18/24 11:04 06/18/24 10:00 06/18/24 11:09
I&O
06/17/24 06/18/24 06/19/24
06:59 06:59 06:59
Intake Total 840 / 840
Output Total 500 / 500
Balance 340 / 340
Review of Systems
-
History Source: Patient
All other systems: Reviewed and negative
Physical Exam
-
General: Well Developed, No Apparent Distress, Pain and Other (Thin, frail, appears older than stated age)
HEENT: Normocephalic, Atraumatic, Moist Mucous Membranes and Anicteric
Respiratory: Clear to Auscultation and Non Labored Respirations; Negative Wheezes, Rales or Rhonchi
Cardiac: Regular Rhythm and S1/S2; Negative Murmur, Rub or Gallop
GI: Soft, Nontender, Nondistended and Normal Bowel Sounds
Musculoskeletal: No Clubbing, No Cyanosis and No Edema
Skin: Warm and Dry; Negative Rash
Neuro: AO x 3, Central Nerve's Intact and Other (Chronic right-sided deficits, no other FND)
Psych: Calm
Data Reviewed
-
Labs: Labs Reviewed by me, Discussed with Patient and Discussed with Family
--- NOTE | 2024-06-18 12:21 | PN.CDI ---
CDI
- -
CDI:
Physician Documentation Request
Admit Date: 06/16/24 10:01
Dear Doctor Raymond,
Clinical Indicators:
Patient admitted with Influenza/CAP & acute hypoxemic/hypercapnic respiratory failure.
06/16 H & P, 'States that she had a illness starting this past Friday with fevers and chills...'
Temp on admission:
06/16/24
05:45 06/17/24
11:05
Temp 101.7 F H 96.4 F L
HR/RR trend on admission:
06/16/24
05:45 06/16/24
07:45 06/16/24
08:30
Pulse 110 102 91
Resp Rate 28 27 21
06/16/24
09:45 06/16/24
10:45
Pulse 96 95
Resp Rate 23 26
Please clarify which of the following most accurately describes the status of the patient's infection:
Sepsis, POA
- Systemic manifestations of infection, with 2 or more SIRS criteria which include:
- Fever >100.4 degrees F or hypothermia < 96.8 degrees F
- Leukocytosis - WBC > 12,000 or leukopenia - WBC < 4,000 or > 10% bands
- Tachycardia > 90 beats per minute
- Tachypnea - RR > 20 breaths per minute or PaCO2 , 32mmHg
Source: [employer]ck Manual 2013
Severe Sepsis with associated respiratory failure, POA
Influenza/CAP Only, Without Systemic Illness
Other
Use of terms such as suspected, likely, concern for, or probable (associated with a specific diagnosis that is being evaluated, monitored, or treated as if it exists) are acceptable and can be coded in the inpatient setting, when documented at the
time of discharge.
Thank you,
Tabitha Mccarty RN BSN
CDI Specialist
available via tiger text
Please use your independent medical judgment in providing your response.
--- NOTE | 2024-06-18 12:34 | PN.CDI ---
CDI
- -
CDI:
Physician Documentation Request
Admit Date: 06/16/24 10:01
Dear Doctor Raymond,
Clinical Indicators:
Patient admitted with Flu/CAP; PMH includes chronic pain.
Home medications include:Clonazepam 0.5 mg tablet 0.5 mg PO QID
Oxycodone 10 mg tablet,crush resistant,extended release 12 hr 10 mg PO QID
Oxycodone 40 mg tablet,crush resistant,extended release 12 hr 40 mg PO QID
06/18 PN,'Chronic pain...oxycodone at high doses standing...Worrisome of developing withdrawal from her home regimen.'
Based on the above, could you clarify in the progress notes, the appropriate diagnosis, if significant, that supports the above abnormalities and additional evaluation, monitoring and/or treatment rendered:
Opioid/benzodiazepine use with dependence
Opioid/benzodiazepine use only
Other
Use of terms such as suspected, likely, concern for, or probable (associated with a specific diagnosis that is being evaluated, monitored, or treated as if it exists) are acceptable and can be coded in the inpatient setting, when documented at the
time of discharge.
Thank you,
Tabitha Mccarty RN
CDI Specialist
available via tiger text
Please use your independent medical judgment in providing your response.
[2024-06-18] MEDS: LOVENOX 40 MG SC (17:34)
[2024-06-18] MEDS: DUONEB INH (18:39)
[2024-06-18] MEDS: ZOFRAN 4 MG IV (20:32)
[2024-06-18] MEDS: TAMIFLU 75 MG PO (21:44)
[2024-06-19] VITALS (12 sets, daily range): BP systolic 120–150; BP diastolic 51–69
--- NOTE | 2024-06-19 04:18 | PTCARENOTE ---
Pt received at beginning of shift resting in bed, at bedside. Pt's came out to nurses station several times requesting pt receive her Roxicodone and Klonopin throughout shift. Informed pt would received her Klonopin and
Roxicodone as ordered and if she requires add'd doses she would need to let us know that he could not request it for her since these meds are ordered prn. He mentioned he does not want pt to go into withdrawal. As of this time in the shift pt has
had only one one dose Klonopin and one dose Roxicodone and stated she 'got a good night's sleep.' She is currently resting comfortably. Her am labs were obtained and sent to the lab. She denies any need for additional Klonopin and Roxicodone at this
time. Previous assessment unchanged. VSS. Afebrile. Maintained on Q2hr turns. Call keyes remains within reach. Will continue to monitor.
[2024-06-19 04:37] LABS: Blood Urea Nitrogen 16 mg/dl (7-17); Calcium 7.3 mg/dl (8.4-10.2); Carbon Dioxide 27 mmol/L (22-30); Chloride 98 mmol/L (98-107); Estimated Creatinine Clearance 79 ml/min; Glucose 79 mg/dl (70-99); Potassium 4.3 mmol/L (3.5-5.1); Sodium 133 mmol/L (135-145); eGFR > 60.00
[2024-06-19 04:48] LABS: % Immature Granulocytes 0.3 % (0-0.5); % Monocytes 11.8 % (1.7-9.3); % Neutrophils 68.9 % (42.2-75.2); Absolute Lymphocytes 0.7 10^3/uL (1.2-3.4); Absolute Monocytes 0.5 10^3/uL (0.1-0.6); Absolute Neutrophils 2.7 10^3/uL (1.4-6.5); Hematocrit 34.2 % (37.0-47.0); Hemoglobin 10.6 g/dL (12.0-16.0); Mean Corpuscular Hgb 29.1 pg (27.0-31.0); Mean Platelet Volume 10.7 fL (7.4-10.4); Nucleated Red Blood Cells % 0 %; Platelet Count 160 10^3/uL (130-400); Red Blood Cell Count 3.64 10^6/uL (4.20-5.40); Red Cell Dist. Width 13.4 % (11.5-14.5); White Blood Cell Count 3.9 10^3/uL (4.8-10.8)
[2024-06-19] MEDS: PROTONIX 40 MG PO (05:16)
[2024-06-19] MEDS: ROXICODONE 20 MG PO (05:19)
[2024-06-19] MEDS: DUONEB INH (07:39)
[2024-06-19] MEDS: DELTASONE 40 MG PO (08:19)
[2024-06-19] MEDS: KLONOPIN 0.5 MG PO ×3 (08:19→20:44)
[2024-06-19] MEDS: CYMBALTA DELAYED RELEASE 30 MG PO ×2 (08:20→18:42)
[2024-06-19] MEDS: SENOKOT-S 1 TABLET PO (08:20)
[2024-06-19] MEDS: VIBRAMYCIN 100 MG PO ×2 (08:20→20:43)
[2024-06-19] MEDS: TAMIFLU 75 MG PO ×2 (08:22→20:43)
[2024-06-19] MEDS: LR 1000 IV (08:23)
[2024-06-19] MEDS: ZOFRAN 4 MG IV ×2 (09:01→16:10)
[2024-06-19] MEDS: ROCEPHIN 1000 MG IV (09:01)
[2024-06-19] MEDS: FLUSH (NSS) 1 FLUSH IV ×3 (09:08→10:05)
[2024-06-19] MEDS: ROXICODONE 40 MG PO ×3 (10:05→20:44)
--- NOTE | 2024-06-19 14:12 | W.PN.HOSP.TC ---
Today's Communication/Plan
-
Last day of Tamiflu tomorrow
Last antibiotics tomorrow
Continue with steroid and bronchodilators
Titrate back onto home pain regimen
Assessment / Plan
Assessment / Plan
#Acute hypoxemic and hypercapnic respiratory failure
-Likely multifactorial with flu, CAP, possible COPD, aspiration, sedation
-Suspect aspiration and oversedation may be the predominant issue
-Upon arrival was hypoxemic, required up to 15 L NRB and intermittent BiPAP
-ABG with pH 7.32, pCO2 73, bicarb 39; blood and sputum cultures obtained
-Hypercapnia did improve with BiPAP, mental status now improving
-Started on Tamiflu, steroid, and empiric antibiotics upon admission
-Currently on room air with SpO2 in the 90s
Plan
-Will continue antibiotics for today, plan 5-day course (last day 06/21)
-Continue with Tamiflu twice daily, plan 5-day course (last day 06/21)
-Continue with steroids and bronchodilators for now
-Wean oxygen as possible
-Aspiration precautions
#Acute Metabolic encephalopathy
-Likely multifactorial with hypercapnia, high doses of home sedating medications
-Holding clonazepam and oxycodone oral doses; hypercapnia improved with BiPAP
-Mental status improved, more responsive today though does still have some lethargy
-Resumed her home medications on as-needed basis
Plan
-Increase oxycodone as needed to 40 mg
-Continue with home lorazepam regimen PRN
-Will titrate back onto home regimen slowly
-Monitor for sedation
#Atrial tachycardia
-Has had intermittent runs of tachycardia, narrow complex
-ekg monitor tech showed signs of irregularity; ECG showing AT v. ST
-No signs of MAT, have not formally picked up AF versus AFL either
-Improved as respiratory status is improved
-Will consider 25 mg metoprolol succinate if recurrent
#Chronic pain
-Home medications include duloxetine, oxycodone at high doses standing
-Will need to verify home medications with family
-Holding standing dose meds for now due to lethargy
#GERD
-Home medications include omeprazole 20 mg
-No known history of Lynn's or erosive disease
-Appears stable
#H/O intracranial hemorrhage
-Per history noted to have left-sided residual deficits
-CT here without any acute findings
DVT prophylaxis: Lovenox
Diet: Pur�ed diet
CODE STATUS: Full code
Anticipated Discharge: 24 - 48 hours
Subjective/Interval History
-
Date of Service: June 19, 2024
Seen and examined at the bedside. No acute events reported overnight. AFVSS on room air
Complains of some nausea, believes related to opioid withdrawal. Mental status remains stable
Labs show hemoglobin drop to 10.4 today. All cell counts, electrolytes appear lower, suspect dilution
Denies any new complaints
Objective Data
-
Labs:
Laboratory Results
06/19/24
03:40
WBC 3.9 L
Hgb 10.6 L D
Hct 34.2 L
Plt Count 160
Sodium 133 L D
Potassium 4.3
Chloride 98
Carbon Dioxide 27
BUN 16
Creatinine 0.3 L
Glucose 79
Calcium 7.3 L
Vital Signs:
Vital Signs
Temp Pulse Resp BP Pulse Ox
97.7 F 73 11 132/58 94
06/19/24 11:00 06/19/24 12:00 06/19/24 12:00 06/19/24 12:00 06/19/24 12:00
I&O
06/18/24 06/19/24 06/20/24
06:59 06:59 06:59
Intake Total 840 / 840
Output Total 500 / 500 795 / 795
Balance 340 / 340 -795 / -795
Review of Systems
-
History Source: Patient
All other systems: Reviewed and negative
Physical Exam
-
General: Well Developed, No Apparent Distress, Comfortable and Other (Frail, thin, appears older than age)
HEENT: Normocephalic, Atraumatic, Moist Mucous Membranes and Anicteric; Negative Oxygen
Respiratory: Clear to Auscultation and Non Labored Respirations
Cardiac: Regular Rhythm and S1/S2; Negative Murmur, Rub or Gallop
GI: Soft, Nontender, Nondistended and Normal Bowel Sounds
Musculoskeletal: No Clubbing, No Cyanosis and No Edema
Skin: Warm, Dry and Normal Turgor; Negative Rash
Neuro: AO x 3 and Nonfocal/Grossly Intact; Negative Sedated
Psych: Calm
[2024-06-19] MEDS: LOVENOX 40 MG SC (18:41)
[2024-06-20] VITALS (12 sets, daily range): BP systolic 109–149; BP diastolic 47–80
[2024-06-20] MEDS: KLONOPIN 0.5 MG PO ×4 (02:36→20:37)
[2024-06-20] MEDS: ROXICODONE 40 MG PO ×3 (02:36→20:36)
[2024-06-20] MEDS: ZOFRAN 4 MG IV ×3 (02:36→20:37)
[2024-06-20] MEDS: PROTONIX 40 MG PO (05:32)
[2024-06-20] MEDS: CYMBALTA DELAYED RELEASE 30 MG PO ×2 (08:36→18:13)
[2024-06-20] MEDS: TAMIFLU 75 MG PO ×2 (08:36→20:34)
[2024-06-20] MEDS: DELTASONE 40 MG PO (08:36)
[2024-06-20] MEDS: VIBRAMYCIN 100 MG PO ×2 (08:37→20:35)
[2024-06-20] MEDS: FLUSH (NSS) 2 FLUSH IV (11:02)
[2024-06-20] MEDS: FLUSH (NSS) 1 FLUSH IV ×2 (11:06→11:22)
[2024-06-20] MEDS: STERILE WATER FOR INJECTION 10 ML IV (11:11)
[2024-06-20] MEDS: ROCEPHIN 1000 MG IV (11:16)
--- NOTE | 2024-06-20 11:57 | W.PN.HOSP.TC ---
Today's Communication/Plan
-
Oxycodone ER 40 mg at 2:30 PM and 2:30 AM
Oxycodone IR 40 mg as needed at 6:30 PM
Plan to resume 40 mg oxycodone ER 4 times daily tomorrow
Continue with clonazepam and Cymbalta as prescribed
Monitor mental status
Discharge tomorrow
Assessment / Plan
Assessment / Plan
#Acute hypoxemic and hypercapnic respiratory failure
-Likely multifactorial with flu, CAP, possible COPD, aspiration, sedation
-Suspect aspiration and oversedation may be the predominant issue
-Upon arrival was hypoxemic, required up to 15 L NRB and intermittent BiPAP
-ABG with pH 7.32, pCO2 73, bicarb 39; blood and sputum cultures obtained
-Hypercapnia did improve with BiPAP, mental status now improving
-Started on Tamiflu, steroid, and empiric antibiotics upon admission
-Currently on room air with SpO2 in the 90s
Plan
-Will continue antibiotics for today, plan 5-day course (last day 06/21)
-Continue with Tamiflu twice daily, plan 5-day course (last day 06/21)
-Continue with steroids and bronchodilators for now, can stop steroid at DC
-Wean oxygen as possible
-Aspiration precautions
#Acute Metabolic encephalopathy
-Likely multifactorial with hypercapnia, high doses of home sedating medications
-Holding clonazepam and oxycodone oral doses; hypercapnia improved with BiPAP
-Mental status improved, more responsive today though does still have some lethargy
-Resumed her home medications on as-needed basis
Plan
-Resume extended release oxycodone 40 mg twice daily
-Continue with short acting oxycodone 40 mg as needed
-Continue with home lorazepam regimen PRN
-Plan to resume home med regimen tomorrow
-Monitor for sedation
#Atrial tachycardia
-Has had intermittent runs of tachycardia, narrow complex
-dance critic showed signs of irregularity; ECG showing AT v. ST
-No signs of MAT, have not formally picked up AF versus AFL either
-Improved as respiratory status is improved
-Will consider 25 mg metoprolol succinate if recurrent
#Chronic pain
#Chronic thalamic pain syndrome
-Home medications include duloxetine, oxycodone at high doses standing
-Will need to verify home medications with family
-Holding standing dose meds for now due to lethargy
#GERD
-Home medications include omeprazole 20 mg
-No known history of Lynn's or erosive disease
-Appears stable
#H/O intracranial hemorrhage
-Per history noted to have left-sided residual deficits
-CT here without any acute findings
DVT prophylaxis: Lovenox
Diet: Pur�ed diet
CODE STATUS: Full code
Anticipated Discharge: Within 24 hours
Subjective/Interval History
-
Date of Service: June 20, 2024
Seen and examined at the bedside. No acute events reported overnight. AFVSS this morning
Patient was sleepy at time of my evaluation. states that this is the first good sleep she is gotten. Believes her withdrawal symptoms are improved. She is able to awaken and answer questions.
Denies acute events. Questions when discharge would be
Objective Data
-
Labs:
Laboratory Results
06/20/24
08:06
Sodium Pending
Potassium Pending
Chloride Pending
Carbon Dioxide Pending
BUN Pending
Creatinine Pending
Glucose Pending
Calcium Pending
Vital Signs:
Vital Signs
Temp Pulse Resp BP Pulse Ox
97.5 F 81 15 135/74 95
06/20/24 06:40 06/20/24 04:03 06/20/24 04:03 06/20/24 04:03 06/20/24 04:03
I&O
06/19/24 06/20/24 06/21/24
06:59 06:59 06:59
Intake Total 280 / 280
Output Total 795 / 795 1300 / 1300
Balance -795 / -795 -1020 / -1020
Review of Systems
-
History Source: Patient
All other systems: Reviewed and negative
Physical Exam
-
General: Well Developed, No Apparent Distress, Comfortable and Other (Thin, frail, appears older than age)
HEENT: Normocephalic, Atraumatic, Moist Mucous Membranes and Anicteric
Respiratory: Clear to Auscultation and Non Labored Respirations
Cardiac: Regular Rhythm and S1/S2; Negative Murmur, Rub or Gallop
GI: Soft, Nontender, Nondistended and Normal Bowel Sounds
Musculoskeletal: No Clubbing, No Cyanosis and No Edema
Skin: Warm, Dry and Normal Turgor; Negative Rash
Neuro: AO x 3 and Nonfocal/Grossly Intact
Psych: Calm
[2024-06-20] MEDS: OXYCONTIN (CONTROLLED RELEASE) 40 MG PO (14:46)
[2024-06-20 16:41] LABS: % Immature Granulocytes 0.4 % (0-0.5); % Monocytes 2.2 % (1.7-9.3); % Neutrophils 89.4 % (42.2-75.2); Absolute Lymphocytes 0.4 10^3/uL (1.2-3.4); Absolute Monocytes 0.1 10^3/uL (0.1-0.6); Blood Urea Nitrogen 22 mg/dl (7-17); Calcium 8.3 mg/dl (8.4-10.2); Chloride 91 mmol/L (98-107); Estimated Creatinine Clearance 79 ml/min; Glucose 180 mg/dl (70-99); Hematocrit 40.2 % (37.0-47.0); Hemoglobin 12.7 g/dL (12.0-16.0); Mean Corp Hgb Conc. 31.6 g/dL (33.0-37.0); Mean Corpuscular Volume 91.8 fL (81.0-99.0); Mean Platelet Volume 10.2 fL (7.4-10.4); Nucleated Red Blood Cells % 0 %; Platelet Count 198 10^3/uL (130-400); Potassium 3.9 mmol/L (3.5-5.1); Red Blood Cell Count 4.38 10^6/uL (4.20-5.40); Red Cell Dist. Width 13.2 % (11.5-14.5); Sodium 137 mmol/L (135-145); White Blood Cell Count 4.5 10^3/uL (4.8-10.8); eGFR > 60.00
[2024-06-20 17:04] LABS: Carbon Dioxide 36 mmol/L (22-30)
--- NOTE | 2024-06-20 17:09 | PTCARENOTE ---
Assumed care of pt at walking rounds. Pt's at bedside. Pt is drowsy but alert and orient x 3. Pt is bedbound at home and her /lawn care specialist manage pt care, transfers with sliding board to bathroom and wheelchair. They tell me they do not
need any further help and they will be able to transfer her home via POV, as I explained we can request transport if feels she is too weak to transfer into car. Pt participates int urnsbut needs assist to fully turn to side. Lungs diminished
bilaterally. Received pt on 2 L NC and weaned to 1 L NC. They report she is on room air at home.
Appetite is improving and pt eating pureed diet with assit. Speech therapy notified about potential discharge in am and please reevaluate prior to discharge. Pt was not on puree prior to admission. ST will see tomorrow.
[2024-06-20] MEDS: CYMBALTA DELAYED RELEASE 20 MG PO (18:12)
[2024-06-20] MEDS: LOVENOX SC ×2 (18:13→18:16)
--- NOTE | 2024-06-20 19:00 | PTCARENOTE ---
Vital signs downloaded from 0600 today. Unable to verify vital signs from [id number].
--- NOTE | 2024-06-20 20:30 | PTCARENOTE ---
Patient received lying in bed, awake and groggy, oriented but noted forgetful. She has a weak cough. Patient encouraged to deep breathe and cough. Right lung with coarse crackles t/o. Left base with crackles. S1S2 regular with positive murmur. Pale
in appearance. Right Wrist SL flushes. Abdomen slightly firm. Patient c/o constipation. She c/o generalized abdominal discomfort and right hand pain. She is asking for pain medication. Pain rated 10/10--Prn oxycodone given as ordered. She is also
requesting Klonopin for anxiety and Zofran for nausea, given. Her Miguel A is at the bedside and has expressed his concern regarding patient receiving enough pain medication--she has been on a regimen per her pain management doctor. She is SR
with 1st degree AVB on CM.
[2024-06-21] MEDS: OXYCONTIN (CONTROLLED RELEASE) 40 MG PO ×3 (00:28→12:09)
[2024-06-21] MEDS: SENOKOT-S 1 TABLET PO (00:29)
--- NOTE | 2024-06-21 00:30 | PTCARENOTE ---
Patient given her prescribed long acting oxycodone--delayed 2000 dose until now since she received dose at 1430 on 06/20. Senokot given as prn for patient c/o constipation.
[2024-06-21 00:34] VITALS: BP 148/81
[2024-06-21] MEDS: KLONOPIN 0.5 MG PO ×2 (03:18→12:08)
[2024-06-21] MEDS: MIRALAX 17 GRAMS PO (06:16)
[2024-06-21] MEDS: PROTONIX 40 MG PO (06:17)
--- NOTE | 2024-06-21 07:32 | PTCARENOTE ---
Report given verbally to CHERY Herron, questions answered.
[2024-06-21] MEDS: TAMIFLU 75 MG PO (07:49)
[2024-06-21] MEDS: DELTASONE 40 MG PO (07:49)
[2024-06-21] MEDS: CYMBALTA DELAYED RELEASE 30 MG PO (07:49)
[2024-06-21 07:53] VITALS: BP 142/73
[2024-06-21] MEDS: FLUSH (NSS) IV ×2 (10:33)
--- NOTE | 2024-06-21 11:59 | RESPNOTE ---
patient cannot walk , she desaturated to 84 % on room air , saturation slowly came up to 92% on 2 liters after 5-6 minutes
--- NOTE | 2024-06-21 13:11 | W.PN.UPDATE ---
Update Note
Progress Note Update
Patient is in need of oxygen at 2 liters/minute via nasal cannula continuously due to pulse oximetry of 88% on room air at rest. Oxygen will help to improve hypoxemia. Patient is mobile within the home. DuoNeb therapy has been tried and is
ineffective in treating hypoxemia related symptoms. Oxygen is needed to improve symptoms.
--- NOTE | 2024-06-21 13:12 | W.PN.HOSP.TC ---
Today's Communication/Plan
-
Discharge home of oxygen,
Assessment / Plan
Assessment / Plan
#Acute hypoxemic and hypercapnic respiratory failure
-Likely multifactorial with flu, CAP, possible COPD, aspiration, sedation
-Suspect aspiration and oversedation may be the predominant issue
-Upon arrival was hypoxemic, required up to 15 L NRB and intermittent BiPAP
-ABG with pH 7.32, pCO2 73, bicarb 39; blood and sputum cultures obtained
-Hypercapnia did improve with BiPAP, mental status now improving
-Started on Tamiflu, steroid, and empiric antibiotics upon admission
-Currently on room air with SpO2 in the 90s
Plan
-Status post antibiotics x 5-day course (last day 06/21)
-Status post Tamiflu twice daily, plan 5-day course (last day 06/21)
-Continue with steroids and bronchodilators for now, can stop steroid at DC
-Wean oxygen as possible
-Aspiration precautions
-Discharge home of oxygen at 2 L
#Acute Metabolic encephalopathy
-Likely multifactorial with hypercapnia, high doses of home sedating medications
-Holding clonazepam and oxycodone oral doses; hypercapnia improved with BiPAP
-Mental status improved, more responsive today though does still have some lethargy
-Resumed her home medications on as-needed basis
Plan
-Resume extended release oxycodone 40 mg twice daily
-Continue with short acting oxycodone 40 mg as needed
-Continue with home lorazepam regimen PRN
-Plan to resume home med regimen tomorrow
-Monitor for sedation
#Atrial tachycardia
-Has had intermittent runs of tachycardia, narrow complex
-media monitor showed signs of irregularity; ECG showing AT v. ST
-No signs of MAT, have not formally picked up AF versus AFL either
-Improved as respiratory status is improved
-Will consider 25 mg metoprolol succinate if recurrent
#Chronic pain
#Chronic thalamic pain syndrome
-Home medications include duloxetine, oxycodone at high doses standing
-Will need to verify home medications with family
-Holding standing dose meds for now due to lethargy
#GERD
-Home medications include omeprazole 20 mg
-No known history of Lynn's or erosive disease
-Appears stable
#H/O intracranial hemorrhage
-Per history noted to have left-sided residual deficits
-CT here without any acute findings
DVT prophylaxis: Lovenox
Diet: Pur�ed diet
CODE STATUS: Full code
Updated at bedside 06/21
Physical Exam
General: Appears weak and debilitated, no acute distress
HEENT: Normocephalic, Atraumatic, EOMI, MMM
Respiratory: Coarse breath sounds
Cardiac: Normal S1/S2, Regular Rate and Rhythm
GI: Soft, Nontender, Nondistended, Normal Bowel Sounds
Extremities: No Clubbing, Cyanosis, or Edema
Neuro: Nonfocal/Grossly Intact
Psych: Calm, Cooperative
Anticipated Discharge: Today
Subjective/Interval History
-
Date of Service: June 21, 2024
Denies chest pain, shortness of breath, or palpitations. She has chronic pain. She is eager for discharge. No fever, no vomiting.
Objective Data
-
Vital Signs:
Vital Signs
Temp Pulse Resp BP Pulse Ox
98.3 F 76 16 142/73 92
06/21/24 07:50 06/21/24 08:00 06/21/24 08:00 06/21/24 07:53 06/21/24 10:16
I&O
06/20/24 06/21/24 06/22/24
06:59 06:59 06:59
Intake Total 280 / 280 840 / 840
Output Total 1300 / 1300 2049
Balance -1020 / -1020 -1210 / -1210
--- NOTE | 2024-06-21 14:19 | W.DCSUMMARY ---
Discharge Summary
Discharge Data
Date of Admission: 06/16/24
Date of Discharge: 06/21/24
-
Pending Results: No
Hospital Course
Discharge diagnosis:
Acute hypoxemic and hypercapnic respiratory failure
Acute influenza A infection
Community-acquired pneumonia
Probable acute on chronic obstructive pulmonary disease exacerbation
Acute toxic metabolic encephalopathy
Atrial tachycardia
Chronic pain syndrome on chronic narcotics with dependency
Gastroesophageal reflux disease
History of intracranial hemorrhage
Consults: Cardiology, pulmonology
Hospital course:
74-year-old female with a past medical history of GERD, intracranial hemorrhage, and chronic pain syndrome on chronic narcotics with dependency was admitted for acute hypoxemic and hypercapnic respiratory failure secondary to acute influenza A
infection and pneumonia. Patient was seen in conjunction with pulmonology. She required as much as 15 L nonrebreather. She was treated with a 5-day course of IV antibiotics and Tamiflu. She also received several doses of IV steroids and
bronchodilators. She was able to be weaned to 2 L of oxygen. She will be discharged on oxygen 2 L to be worn at all times. This is a new requirement for her.
Patient also had intermittent episodes of tachycardia. She was seen in conjunction with cardiology, and found to have short runs of paroxysmal atrial tachycardia, no evidence of atrial fibrillation. She did receive a few doses of IV metoprolol,
but did not require any more after that.
Patient felt better, and is medically stable for discharge. She needs to follow-up with her primary care doctor in 1 week.
Disposition: Home with 24-hour care
Discharge planning: Required 45 minutes
Discharge Plan
-
Patient Disposition: Home (Routine Discharge)
Discharge Diagnosis/Procedures: Influenza
Hypoxia
Hypercapnia
Sedation from home meds while infected with influenza
Condition: Fair
Additional Diets: DIET: Soft diet, Thin Liquids with caution
MEDS: in puree
Strategies: only when awake/alert, full supervision/assistance, SINGLE sips
Oral care 3x daily
Activity: As tolerated
Driving Restrictions: No driving
Bathing Restrictions: None
Blood Work: none
Others Tests: none
Other Services: PT, OT and ST
Activity Restrictions/Additional Instructions:
Follow up
Pain specialist in < 1 month
Family doctor within 1 week
Continue wearing oxygen at 2 L at all times
Wound Care Instructions
R breast: clean with soap and water, smear of honey gel and dry dressing. Change daily and prn drainage.
Referrals:
Holley Solomon MD [Family Provider] - in one week
Additional Discharge Medication Instructions: Use Spiriva and albuterol inhalers as needed for shortness of breath and wheeze
Continue duloxetine as previously prescribed
Continue Clonazepam as previously prescribed, however, HOLD if sedated
Continue OcyContin 40 mg as previously prescribed, however, HOLD if sedated
Stop 10 mg OxyContin
Prescriptions:
New
albuterol sulfate 90 mcg/actuation Hfa Aerosol Inhaler
1 puff inhalation R Q4HPRN PRN (Reason: SOB/wheeze) Qty: 8.5 0RF
Spiriva Respimat 2.5 mcg/actuation Mist
2 puff inhalation R Q4HPRN PRN (Reason: SOB/wheeze) Qty: 4 0RF
Continued
clonazepam 0.5 mg Tablet
0.5 mg PO QID@06,12,18,00
omeprazole 20 mg Capsule,Delayed Release(Dr/Ec)
20 mg PO DAILY@0600
duloxetine [Cymbalta] 20 mg Capsule,Delayed Release(Dr/Ec)
20 mg PO QPM
duloxetine [Cymbalta] 30 mg Capsule,Delayed Release(Dr/Ec)
30 mg PO DAILY
duloxetine [Cymbalta] 30 mg Capsule,Delayed Release(Dr/Ec)
30 mg PO QPM
oxycodone [OxyContin] 40 mg Tablet,Oral Only,Ext.Rel.12 Hr
40 mg PO QID@06,12,18,00
Held
oxycodone [OxyContin] 10 mg Tablet,Oral Only,Ext.Rel.12 Hr
10 mg PO QID@06,12,18,00
Hold Instructions: Until you talk with pain specialist
Discharge Orders:
Discharge Patient (As Directed); Ordered 06/21/24
Ordered By: Ty Hall
Discharge Date and Time
Discharge Date/Time: 06/21/24 15:40
Print Language: KOREAN
--- NOTE | 2024-06-21 15:35 | PTCARENOTE ---
Reviewed discharge instructions with Pt and ; Brought down to discharge area by transport - discharge to home.
--- NOTE | 2024-06-21 17:36 | CM ---
Patient who is bedbound at baseline requiring 24/7 care. Home O2 Assessment today - O2 2L ordered.
Met with patient and ; both agree to d/c today with home O2 through [employer]- aware he needs to wait for portable O2 delivery to room before d/c. IMM completed. Offered VN and declined. He will provide transport home in his
car, which he says patient has done successfully before. says caregiver already waiting at home to resume care for his .
Plan home today with Home O2 via [employer], with transporting.
== END 2024-06-21 15:40 | disposition home or self-care (01) | DRG 871 ==
LOC: IMU 10:01
PROVIDERS: Student in an Organized Health Care Education/Training Program; ADMITTING PHYSICIAN Internal Medicine; ATTENDING PHYSICIAN Family Medicine; CONSULT PHYSICIAN Internal Medicine Cardiovascular Disease; CONSULT PHYSICIAN Internal Medicine Critical Care Medicine; EMERGENCY PHYSICIAN Emergency Medicine; FAMILY PHYSICIAN Internal Medicine
DX: A41.9 Sepsis, unspecified organism (principal); G93.41 Metabolic encephalopathy; J96.01 Acute respiratory failure with hypoxia; J96.02 Acute respiratory failure with hypercapnia; J44.0 Chronic obstructive pulmonary disease with (acute) lower respiratory infection; J44.1 Chronic obstructive pulmonary disease with (acute) exacerbation; I47.19 Other supraventricular tachycardia; F11.20 Opioid dependence, uncomplicated; F13.20 Sedative, hypnotic or anxiolytic dependence, uncomplicated; I69.354 Hemiplegia and hemiparesis following cerebral infarction affecting left non-dominant side; J10.1 Influenza due to other identified influenza virus with other respiratory manifestations; G89.29 Other chronic pain; K21.9 Gastro-esophageal reflux disease without esophagitis
CPT/HCPCS: 36600; 70450; 71045; 80048; 80053; 82805; 82962; 83735; 83880; 84145; 84443; 84484; 85025; 85610; 85652; 85730; 86803; 87040; 87070; 87502; 87811; 92526; 92610; 93005; 94640; 96361; 96374; 96375; 99291

== ENCOUNTER 2024-06-28 11:53 | Inpatient (IN) | payer OTHER, MEDICARE, SELFPAY ==
[2024-06-28] VITALS (18 sets, daily range): BP systolic 95–173; BP diastolic 50–73; PULSE 2–96; BMI 20.8
[2024-06-28 07:21] LABS: Glucose - Point of Care 164 mg/dl (70-99)
[2024-06-28] MEDS: NSS 1000 IV ×2 (07:21→10:01)
--- NOTE | 2024-06-28 07:46 | ED.GENMED ---
History of Present Illness
General
Chief Complaint: Change in Mental Status
Source: patient, family and ambulance crew
Exam Limitations: none
Time Seen by Provider: 06/28/24 07:08
Nursing documentation reviewed up to this point in time: agreed with
History of Present Illness
History of Present Illness:
74-year-old male past history of seizures presenting to the emergency department today from private residence with concerns of lethargy. He was in the hospital 10 days ago when she was altered found potential pneumonia as well as the flu. EMS
described her not using oxygen when at home though she is prescribed 6 L at baseline. She denies any specific symptoms she claims she does not know why she is here. She does know she is in the hospital she does know the month.
Past History
Past History
ED Past Medical History: Other (CVA/intracranial hemorrhage, post-CVA neuropathic pain)
Social History
Living: with family
Review of Systems
Review of Systems
Allergies reviewed?: Yes
All Other Systems: ROS reviewed and negative except as documented in HPI and ROS
Phy Exam
Physical Exam
Physical Exam:
GENERAL: Alert , in no apparent distress
EYE: pupils equal and reactive
NECK: Supple, no significant adenopathy.
ENT: o/p clr, mmm.
CARDIAC: Regular rate and rhythm .
LUNGS: Clear breath sounds bilaterally, no acute respiratory distress, no wheezes/rales/rhonchi
ABDOMEN: Soft, without focal tenderness, no r/g, no cvat
NEUROLOGICAL: Alert no focal neuro deficits
SKIN: Warm and dry, skin intact.
MUSCULOSKELETAL: No edema, well perfused.
PSYCH: Normal and appropriate interaction.
Sepsis
Sepsis Screening
Sepsis Assessment: Sepsis
Sepsis Screen
Sepsis Screen: Sepsis
Date: 06/28/24
Time: 10:14
Course
Orders/Labs/Results
Orders:
Orders
06/28/24 07:20
Electrocardiogram (*1) Stat
Reason for Study: Abdominal Pain
Cardiac Monitoring- Treatment ONCE
EKG- Treatment ONCE
0.9% Sodium Chloride 1000 ml [Nss] 1,000 ml IV BOLUS
Chest X-ray Portable [CR Chest Portable - 1 View] Urgent
Comment:
Reason For Exam: recent pna, ams
Reason Study Needs to be Portable: Unable to Transport
06/28/24 07:26
Basic Metabolic Panel Urgent
Complete Blood Count/With Diff Urgent
Lipase Urgent
TSH Reflex To Free T4 Urgent
Urinalysis Reflex To Culture Urgent
Date Specimen was Collected: 06/28/24
Time Specimen was Collected: 07:22
Urine Calcium Urgent
Date Specimen was Collected: 06/28/24
Time Specimen was Collected: 07:22
Comment: ADD
Blood Culture Q30M
TOMMY Source: Blood/Venous
Specimen Description:
06/28/24 07:27
COVID-19 Antigen Urgent
Source: Nasal Swab
Lactic Acid Urgent
Blood Culture Q30M
TOMMY Source: Blood/Venous
Specimen Description:
Influenza A+B Rapid Molecular Urgent
TOMMY Source: Nasal Swab
Specimen Description:
06/28/24 07:46
Acetaminophen [Tylenol] 1,000 mg PO NOW STA
06/28/24 08:17
Add On- LAB Urgent
Tests Added?: PTH
06/28/24 08:19
Urine Calcium Urgent
06/28/24 08:20
Acetaminophen 1000MG/100Ml [Ofirmev] 1,000 mg in 100 ml IV ONCE
Acetaminophen IV Indication:: No [place] & No Enteral Access
06/28/24 08:28
Add On- LAB Urgent
Tests Added?: urine calcium
06/28/24 08:33
Comprehensive Metabolic Panel Urgent
Comment: ADD ON
06/28/24 09:06
Cefepime HCl [Maxipime] 2,000 mg IV NOW STA
06/28/24 09:07
Vancomycin [Vancocin] 1,500 mg 0.9% Sodium Chloride 500 ml [Nss] 500 ml IV NOW
06/28/24 09:42
0.9% Sodium Chloride 1000 ml [Nss] 1,000 ml IV BOLUS
06/28/24 09:53
Add On- LAB Urgent
Tests Added?: cmp, ionized calcium
06/28/24 09:59
Ionized Calcium Urgent
Abnormal Lab Results
06/28/24 06/28/24 06/28/24
07:18 07:26 08:33
WBC 15.6 H 10^3/uL
(4.8-10.8)
MCHC 30.2 L g/dL
(33.0-37.0)
MPV 11.3 H fL
(7.4-10.4)
Abs Immat Gran (auto) 0.1 H 10^3/uL
(0-0.05)
Absolute Neuts (auto) 13.2 H 10^3/uL
(1.4-6.5)
Absolute Lymphs (auto) 1.1 L 10^3/uL
(1.2-3.4)
Absolute Monos (auto) 1.1 H 10^3/uL
(0.1-0.6)
Neutrophils % 84.2 H %
(42.2-75.2)
Lymphocytes % 6.9 L %
(20.5-51.1)
Carbon Dioxide 34 H mmol/L
(22-30)
BUN 6 L mg/dl
(7-17)
Creatinine 0.3 L mg/dL
(0.6-1.0)
Glucose 125 H mg/dl
(70-99)
Calcium 6.1 L* mg/dl
(8.4-10.2)
Albumin 2.9 L g/dl
(3.5-5.0)
Lipase < 10 L U/L
(23-300)
POC Glucose 164 H mg/dl
(70-99)
06/28/24 07:26
06/28/24 09:05
Vital Signs
Initial and Last Documented VS:
Initial Vital Signs
Temp Pulse Resp BP Pulse Ox
100.9 F H 137 25 173/73 84
06/28/24 07:01 06/28/24 07:01 06/28/24 07:01 06/28/24 07:01 06/28/24 07:01
Last Documented Vital Signs
Temp Pulse Resp BP Pulse Ox
100.9 F H 116 16 173/73 100
06/28/24 07:01 06/28/24 07:45 06/28/24 08:00 06/28/24 07:17 06/28/24 07:45
MDM/Problems Addressed
MDM/Problems Addressed:
74-year-old female presenting to the emergency department today with altered mental status from home. She lives with her . Was recently in the hospital with pneumonia, influenza and altered mental status. She is also hypercapnia and
hypoxic. On arrival she is tachycardic tachypneic febrile initial pulse ox in the 80s but improving to the high 90s with nasal cannula oxygen. On x-ray there is apparent consolidation of the right lower lobe. Patient was febrile tachycardic
meeting sepsis criteria patient was started on antibiotics for possible hospital-acquired pneumonia. White count is 15.6. Otherwise calcium is low albumin is low as well corrected still in the 7 range. Plan to admit for further monitoring and
further assessment. Heart rate improving after fluids.
*Critical Care Note
Total Time (30-74mins, 75-104mins- exclusive of procedures): Not Applicable
ED Attending Note
-
Portions of this chart may have been created with voice recognition software.� Occasional wrong word or��sound alike� substitutions may have occurred due to the inherent limitations of voice recognition software.
Discharge Plan
Departure
Patient Disposition: Admit
Date of Disposition: 06/28/24
Time of Disposition: 10:13
Admit to: IMU
Admit to doctor: Govind
Presentation/result/management discussed w/ accepting MD/DO: Hospitalist
Patient with high blood pressure during this ER visit?: No
Condition: Fair
Covid-19: Not Applicable
Discharge Problem:
Altered mental status, Pneumonia, Hypocalcemia
Prescriptions:
No Action
clonazepam 0.5 mg Tablet
0.5 mg PO QID@06,12,18,00
duloxetine [Cymbalta] 20 mg Capsule,Delayed Release(Dr/Ec)
20 mg PO QPM
duloxetine [Cymbalta] 30 mg Capsule,Delayed Release(Dr/Ec)
30 mg PO DAILY
duloxetine [Cymbalta] 30 mg Capsule,Delayed Release(Dr/Ec)
30 mg PO QPM
oxycodone [OxyContin] 40 mg Tablet,Oral Only,Ext.Rel.12 Hr
40 mg PO QID@06,12,18,00
albuterol sulfate 90 mcg/actuation Hfa Aerosol Inhaler
1 puff inhalation R Q4HPRN PRN (Reason: SOB/wheeze) Qty: 8.5 0RF
Spiriva Respimat 2.5 mcg/actuation Mist
2 puff inhalation R Q4HPRN PRN (Reason: SOB/wheeze) Qty: 4 0RF
esomeprazole magnesium [Nexium] 20 mg Capsule,Delayed Release(Dr/Ec)
20 mg PO DAILY
Referrals:
Holley Solomon MD [Family Provider] -
Interventions
Interventions:
*Risk Screen - Suicide Last Done: 06/28/24 07:01
*General Assessment Last Done: 06/28/24 07:01
*Neglect/Abuse Screening Last Done: 06/28/24 07:01
ED- Fall Risk Assessment Last Done: 06/28/24 07:49
*ED COVID-19 Vaccine History Last Done: 06/28/24 07:10
ED- Pulmonary Assessment Last Done: 06/28/24 07:49
ED- Neurological Assessment Last Done: 06/28/24 07:49
ED- Cardiac Assessment Last Done: 06/28/24 07:49
ED Swallowing Screen Last Done: 06/28/24 08:17
Discharge Date and Time
Print Language: [id number]
[2024-06-28 07:54] LABS: % Basophils 0.2 % (0-2); % Eosinophils 1.1 % (0-6); % Immature Granulocytes 0.5 % (0-0.5); % Lymphocytes 6.9 % (20.5-51.1); % Monocytes 7.1 % (1.7-9.3); % Neutrophils 84.2 % (42.2-75.2); Absolute Eosinophils 0.2 10^3/uL (0-0.7); Absolute Immature Granulocytes 0.1 10^3/uL (0-0.05); Absolute Lymphocytes 1.1 10^3/uL (1.2-3.4); Absolute Monocytes 1.1 10^3/uL (0.1-0.6); Absolute Neutrophils 13.2 10^3/uL (1.4-6.5); Hematocrit 40.4 % (37.0-47.0); Hemoglobin 12.2 g/dL (12.0-16.0); Mean Corp Hgb Conc. 30.2 g/dL (33.0-37.0); Mean Corpuscular Hgb 28.5 pg (27.0-31.0); Mean Corpuscular Volume 94.4 fL (81.0-99.0); Mean Platelet Volume 11.3 fL (7.4-10.4); Nucleated Red Blood Cells % 0 %; Platelet Count 257 10^3/uL (130-400); Red Blood Cell Count 4.28 10^6/uL (4.20-5.40); Red Cell Dist. Width 13.3 % (11.5-14.5); White Blood Cell Count 15.6 10^3/uL (4.8-10.8)
[2024-06-28 08:08] LABS: Urine Albumin Negative (Neg - Trace); Urine Bilirubin Negative (Negative); Urine Character Clear (Clear); Urine Color Yellow; Urine Glucose Negative (Negative); Urine Ketone Negative (Negative); Urine Leukocyte Negative (Negative); Urine Nitrite Negative (Negative); Urine Occult Blood Negative (Negative); Urine Specific Gravity 1.015 (<1.030); Urine Urobilinogen Negative (Neg - 1+)
[2024-06-28 08:10] LABS: Lactic Acid 1.7 mmol/L (0.7-2.0)
[2024-06-28 08:12] LABS: COVID-19 Antigen Negative (Negative)
[2024-06-28 08:14] LABS: Blood Urea Nitrogen 6 mg/dl (7-17); Calcium 6.1 mg/dl (8.4-10.2); Carbon Dioxide 34 mmol/L (22-30); Chloride 102 mmol/L (98-107); Estimated Creatinine Clearance 81 ml/min; Glucose 125 mg/dl (70-99); Lipase < 10 U/L (23-300); Sodium 140 mmol/L (135-145); eGFR > 60.00
[2024-06-28] MEDS: OFIRMEV 100 IV (08:28)
[2024-06-28 08:46] LABS: TSH Reflex To Free T4 1.05 uIU/ml (0.47-4.68)
[2024-06-28 09:02] LABS: Albumin 2.9 g/dl (3.5-5.0); Potassium 3.7 mmol/L (3.5-5.1)
[2024-06-28] MEDS: MAXIPIME 2000 MG IV (10:01)
[2024-06-28 10:31] LABS: ALT (SGPT) 10 U/L (0-35); AST (SGOT) 20 U/L (14-36); Alkaline Phosphatase 53 U/L (38-126); Blood Urea Nitrogen 8 mg/dl (7-17); Calcium 7.4 mg/dl (8.4-10.2); Chloride 93 mmol/L (98-107); Estimated Creatinine Clearance 81 ml/min; Glucose 123 mg/dl (70-99); Sodium 136 mmol/L (135-145); Total Bilirubin 0.5 mg/dl (0.2-1.3); Total Protein 5.6 g/dl (6.3-8.2); eGFR > 60.00
[2024-06-28 10:46] LABS: Carbon Dioxide 37 mmol/L (22-30)
[2024-06-28] MEDS: VANCOCIN 530 MG IV (10:53)
--- NOTE | 2024-06-28 11:30 | HPS.HSE ---
Family Physician
-
Family Physician: Holley Solomon
Chief Complaint
-
confusion
History of Present Illness
Patient is a 74F with PMH of hypoxic/hypercapnic respiratory failure, chronic pain and narcotic dependence, history of atrial tachycardia, history of intracranial hemorrhage/CVA, gastroesophageal reflux disease was brought in by patient's spouse
after patient was noted to be lethargic/minimally responsive over the last 48 hours. Patient was just discharged on 21 June after treatment of metabolic encephalopathy due to multifactorial reason and aspiration pneumonia. Post discharge
patient was doing better and was at her baseline for few days. Unfortunately last 48 hours patient was noted to be lethargic and slowly getting more somnolent up to point where patient was difficult to arouse today and was brought in. EMS noted
that patient was off of oxygen as well although oxygen saturation was not significantly low and patient was saturating 88 to 90% on 2 L nasal cannula support per ER documentation.
During my visit today patient unable to provide any detail and spouse able to provide all the information. No reported productive cough/shortness of breath/syncope/fever/nausea/vomiting/diarrhea.
Primary workup has been negative so far and patient has been spiking fever of 100.9 F[address] in the ER. CT head ruled out any underlying issues. Blood gas suggestive of possible reoccurrence of hypercapnic respiratory failure.
Medical History
Past Medical History
Past Medical History: Reports Other
Additional Past Medical History:
hypoxic/hypercapnic respiratory failure, chronic pain and narcotic dependence, history of atrial tachycardia, history of intracranial hemorrhage/CVA, gastroesophageal reflux disease
Past Surgical History: Reports Other
Social History
Tobacco: Former Smoker
Alcohol: None
Drug: None
Personal:
Living: With Family
Family History
Family History: Not pertinent
Allergies / Home Medications
Allergies reflects when Allergies were last updated in [facility].
Home Medications with original date entered in [employer] [facility] [facility]
Allergy/Medication List:
Allergies
Allergy/AdvReac Type Severity Reaction Status Date / Time
adrenal cortex (porcine) Allergy Unknown Verified 06/28/24 07:21
erythromycin base Allergy Unknown Verified 06/28/24 07:21
fluconazole Allergy Unknown Verified 06/28/24 07:21
penicillin G Allergy Unknown Verified 06/28/24 07:21
Penicillins Allergy Unknown Verified 06/28/24 07:21
prednisone Allergy Unknown Verified 06/28/24 07:21
[id number] - Not Allergy Unknown Uncoded 06/28/24 07:21
Converted 91. See Text.
Home Medications
clonazepam 0.5 mg tablet 0.5 mg PO QID@06,12,18,00 06/16/24
duloxetine 20 mg capsule,delayed release (Cymbalta) 20 mg PO QPM 06/16/24
duloxetine 30 mg capsule,delayed release (Cymbalta) 30 mg PO DAILY 06/16/24
duloxetine 30 mg capsule,delayed release (Cymbalta) 30 mg PO QPM 06/16/24
oxycodone 40 mg tablet,crush resistant,extended release 12 hr (OxyContin) 40 mg PO QID@06,12,18,00 06/16/24
albuterol sulfate 90 mcg/actuation aerosol inhaler 1 puff inhalation R Q4HPRN PRN SOB/wheeze #8.5 grams 06/20/24
tiotropium bromide 2.5 mcg/actuation mist for inhalation (Spiriva Respimat) 2 puff inhalation R Q4HPRN PRN SOB/wheeze #4 grams 06/20/24
esomeprazole magnesium 20 mg capsule,delayed release (Nexium) 20 mg PO DAILY 06/28/24
Review of Systems
-
Unable to obtain full review of systems at this time due to: Acuity
Physical Exam
Vital Signs
Vital Signs
Temp Pulse Resp BP Pulse Ox
100.9 F H 103 10 117/61 96
06/28/24 07:01 06/28/24 10:30 06/28/24 10:30 06/28/24 10:00 06/28/24 10:30
Physical Exam
General: No Apparent Distress
HEENT: Atraumatic and Oxygen
Respiratory: Clear
Cardiac: S1/S2 and Regular Rhythm; No Murmur or Rub
GI: Soft and Normal Bowel Sounds; No Organomegaly
Rectal: Deferred by Provider
Musculoskeletal: No Clubbing, No Cyanosis and No Edema
Skin: No Rash
Neuro: Awake, Alert, Oriented and Nonfocal/grossly intact
Psych: Calm
Laboratory Results
-
06/28/24 07:26
06/28/24 09:05
Laboratory Results
pH Cancelled 06/28/24 11:00
pCO2 Cancelled 06/28/24 11:00
pO2 Cancelled 06/28/24 11:00
HCO3 Cancelled 06/28/24 11:00
Lactic Acid 1.7 mmol/L (0.7-2.0) 06/28/24 07:27
Total Bilirubin Cancelled 06/28/24 09:05
AST Cancelled 06/28/24 09:05
ALT Cancelled 06/28/24 09:05
Alkaline Phosphatase Cancelled 06/28/24 09:05
Lipase < 10 U/L (23-300) L 06/28/24 07:26
Impression/Plan
-
1. Acute toxic metabolic encephalopathy
Acute hypercapnic resp failure
Chronic hypoxic resp failure
-Patient has been lethargic/difficult to arouse for last 48 hours
-CT head without any abnormality
-Chest x-ray showing improved infiltrates. UA clear. COVID/flu negative
-VBG showing pCO2 of 80 and pH 7.3 - start trial of BiPAP
- admit to IMU overnight
2. Episode of fever
Recent aspiration pneumonia/Flu A infection
-Patient has finished course of antibiotic just week back
-Chest x-ray did not show any new infiltrate
-Patient got vancomycin and cefepime in ER
-Pulmonary septic workup has been negative
-Follow-up blood culture report
-Start antibiotics with broad-spectrum coverage if patient spikes temperature above 100.5 Fahrenheit again
4. chronic pain and narcotic dependence
-Patient has been on oxycodone 40 mg every 6 hours. Was on total 200 mg of oxycodone daily over 15 years per family, this was decreased to total of 160 mg on last admission
-Patient to be resumed back once mentation appropriate
-Continue duloxetine home dose
history of atrial tachycardia
history of intracranial hemorrhage/CVA
gastroesophageal reflux disease
DVT PPX - scd
Full code-confirmed with spouse at bedside
Total time spent : 77 mins
I personally saw and examined the patient.
I have reviewed all diagnostic interpretations and treatment plans as written.
Time includes patient management by me, time spent at the patients bedside, time to review lab and imaging results, discussing patient care, documentation in the medical record, and time spent with the family or caregiver and discussing care plan
with RN/Consultants.
[2024-06-28 11:54] LABS: Venous Blood Gas B.E. 11.2 mmol/L (-4 to +4); Venous Blood Gas HCO3 40.3 mmol/L (22-27); Venous Blood Gas pH 7.31 (7.32-7.43); Venous Blood Gas pO2 215 mmHg (30-50)
[2024-06-28 11:55] LABS: Venous Blood Gas O2 Therapy NC
[2024-06-28 11:56] LABS: Venous Blood Gas pCO2 80 mmHg (35-48)
[2024-06-28 11:57] LABS: Ionized Calcium 1.06 mMOL/L (1.15-1.33)
--- NOTE | 2024-06-28 14:49 | CM ---
CM attempted to meet with pt and sleeping soundly
Call with spouse
Pt resides with her spouse in a 2SH with 1 GEORGETTE
Pt sleeps on second floor in regular bed, stair glide
Pt is assisted with all personal care and transfers 1 person assist
She is able to stand and pivot with an assist of 1, non-ambulatory
She has use of UE and able to feed self, perform oral care, and participate on her bathing tasks
Pt bathes in shower stall
Home is equipped with a stair glide, WC, power chair, RW, and commode
Pt has hx with [facility]
Pt has private duty support 6-7 hours daily
Pt also has home O2 through [employer], 2L
PCP- Holley Solomon
Rx-Miguel Chaudhari
Discharge Disposition- home, follow for VN needs
--- NOTE | 2024-06-28 16:07 | EDRN ---
Per Mookie Faust, pt can be taken off bipap and to use bipap only while sleeping.
--- NOTE | 2024-06-28 18:54 | PTCARENOTE ---
Admitted to IMU, monitors placed. Admission completed bedside. has concerns with pain meds not ordered at this time- will relay to next shift.
[2024-06-28] MEDS: OXYCONTIN (CONTROLLED RELEASE) 40 MG PO (20:20)
[2024-06-28] MEDS: LOVENOX 40 MG SC (20:21)
--- NOTE | 2024-06-28 21:00 | PTCARENOTE ---
Received pt from day shift RN. pt is aaox3. NSR on monitor. 94% on 2L. Pt c/o 8/10 pain on the right side of her body. Per pt and spouse, present at bedside, pt has chronic pain which she takes clonidine and oxycodone for. Per pt's last dose
was at 0530. This RN reached out to [facility]. Rx received for Oxycodone (see AUG). Pt resting in bed and is 94% on bipap. Pt has call keyes in reach and rings appropriately.
[2024-06-29] VITALS (14 sets, daily range): BP systolic 98–136; BP diastolic 50–71; PULSE 2–82
[2024-06-29] MEDS: CYMBALTA DELAYED RELEASE 30 MG PO ×3 (00:36→17:54)
[2024-06-29] MEDS: CYMBALTA DELAYED RELEASE 20 MG PO ×2 (00:36→17:54)
[2024-06-29 04:59] LABS: Hematocrit 36.4 % (37.0-47.0); Hemoglobin 11.1 g/dL (12.0-16.0); Mean Corp Hgb Conc. 30.5 g/dL (33.0-37.0); Mean Corpuscular Hgb 28.8 pg (27.0-31.0); Mean Corpuscular Volume 94.5 fL (81.0-99.0); Mean Platelet Volume 10.7 fL (7.4-10.4); Platelet Count 210 10^3/uL (130-400); Red Blood Cell Count 3.85 10^6/uL (4.20-5.40); Red Cell Dist. Width 13.2 % (11.5-14.5); White Blood Cell Count 6.3 10^3/uL (4.8-10.8)
[2024-06-29 05:24] LABS: Blood Urea Nitrogen 7 mg/dl (7-17); Calcium 7.6 mg/dl (8.4-10.2); Chloride 96 mmol/L (98-107); Estimated Creatinine Clearance 81 ml/min; Glucose 86 mg/dl (70-99); Potassium 3.8 mmol/L (3.5-5.1); Sodium 141 mmol/L (135-145); eGFR > 60.00
[2024-06-29 05:35] LABS: Carbon Dioxide 35 mmol/L (22-30)
[2024-06-29] MEDS: OXYCONTIN (CONTROLLED RELEASE) 40 MG PO ×3 (06:37→17:54)
[2024-06-29] MEDS: KLONOPIN 0.5 MG PO (09:16)
[2024-06-29] MEDS: PROTONIX 40 MG PO (09:16)
--- NOTE | 2024-06-29 09:19 | CON.PUL ---
Consultation
Consultation Request
Date/Time Consultation Requested: 06/29/24
Date/Time Consultation Performed: 06/29/24
Performing Provider: Richi
Reason for Consultation: Chronic hypercarbia
Medical History
-
History of Present Illness:
Patient is a 74-year-old female with previous history of chronic pain and narcotic dependence, intracranial hemorrhage/CVA, anxiety/depression, atrial tach, former smoker presenting to ER for increasing lethargy and minimally responsive over the
last 48 hours prior to admission. She was recently admitted and discharged for flu illness on 06/21/2024. She was notably hypoxemic and hypercarbic on that admission. On arrival to ER, she was saturating 88 to 90% on 2 L nasal cannula. ABG
demonstrating acute on chronic CO2 retention, VBG 7.31, CO2 80. Prior to this she was 7.31 and 64. She does not have known history of lung disease in the past but she was a former smoker for 25 years. She has never been diagnosed with sleep
apnea. She has difficulty with transport and making physician office visits given [place] lack of mobility [place]
Past Medical History
Past Medical History: Other (see list below)
Social History
Tobacco: Former Smoker
Alcohol: None
Drug: None
Family History
Family History: Reviewed & Not Pertinent
Allergies / Home Medications
Allergies
Allergy/AdvReac Type Severity Reaction Status Date / Time
adrenal cortex (porcine) Allergy Unknown Verified 06/28/24 07:21
erythromycin base Allergy Unknown Verified 06/28/24 07:21
fluconazole Allergy Unknown Verified 06/28/24 07:21
penicillin G Allergy Unknown Verified 06/28/24 07:21
Penicillins Allergy Unknown Verified 06/28/24 07:21
prednisone Allergy Unknown Verified 06/28/24 07:21
NOT.[id number] - Not Allergy Unknown Uncoded 06/28/24 07:21
Converted 91. See Text.
Home Medications
�Medication �Instructions �Recorded �Confirmed �Last Taken �Type
clonazepam 0.5 mg tablet 0.5 mg PO QID@06,12,18,00 Mental 06/16/24 06/28/24 06/28/24 05:30 History
Health/Anxiety
duloxetine 20 mg capsule,delayed 20 mg PO QPM Mental Health/Anxiety 06/16/24 06/28/24 06/27/24 History
release (Cymbalta)
duloxetine 30 mg capsule,delayed 30 mg PO DAILY Mental 06/16/24 06/28/24 06/28/24 History
release (Cymbalta) Health/Anxiety
duloxetine 30 mg capsule,delayed 30 mg PO QPM Mental Health/Anxiety 06/16/24 06/28/24 06/27/24 History
release (Cymbalta)
oxycodone 40 mg tablet,crush 40 mg PO QID@06,12,18,00 Pain 06/16/24 06/28/24 06/28/24 05:30 History
resistant,extended release 12 hr
(OxyContin)
albuterol sulfate 90 mcg/actuation 1 puff inhalation R Q4HPRN PRN 06/20/24 06/28/24 Unknown Rx
aerosol inhaler SOB/wheeze #8.5 grams
tiotropium bromide 2.5 2 puff inhalation R Q4HPRN PRN 06/20/24 06/28/24 Unknown Rx
mcg/actuation mist for inhalation SOB/wheeze #4 grams
(Spiriva Respimat)
esomeprazole magnesium 20 mg 20 mg PO DAILY Gastrointestinal 06/28/24 06/28/24 Unknown History
capsule,delayed release (Nexium) Issue
Review of Systems
-
History Source: Patient
All other systems: Negative unless noted
Vitals / Labs / Diagnostic Testing
Vital Signs
Temp Pulse Resp BP Pulse Ox
97.9 F 85 20 98/53 93
06/29/24 07:40 06/29/24 06:00 06/29/24 06:00 06/29/24 04:00 06/29/24 06:00
Lab Data
06/29/24 04:29
06/29/24 04:29
Laboratory Results
06/28/24
11:00
pH Cancelled
pCO2 Cancelled
pO2 Cancelled
HCO3 Cancelled
O2 Delivery Level Cancelled
Microbiology
06/28/24 07:26 Blood/Venous Blood Culture - Preliminary
No Growth in 24 hours- Final report to follow
06/28/24 07:27 Blood/Venous Blood Culture - Preliminary
No Growth in 24 hours- Final report to follow
06/28/24 07:27 Nasal Swab Influenza Types A & B ([employer]) - Final
Negative for Influenza A & B, NAAT
Negative results must be combined with clinical observations
and patient history.
Nucleic Acid Amplification test (NAAT)performed on the
[employer] platform.
Diagnostic Testing:
Physical Exam
-
HEENT: Normocephalic, Anicteric and Moist Mucous Membranes
Cardiovascular: S1/S2 and Regular Rhythm
Respiratory: Clear (overall diminished effort/sounds), Non-Labored Respirations and Other (kyphosis noted)
GI: Soft and Non Distended
Neurology: Awake, Alert, Oriented and Other (weak overall, immobile)
Skin: Warm, Dry and Other (pale)
General: Comfortable and Other (chronically ill appearing)
Assessment
-
Patient is a 74-year-old female with previous history of chronic pain and narcotic dependence, intracranial hemorrhage/CVA, anxiety/depression, atrial tach, former smoker presenting to ER for increasing lethargy and minimally responsive over the
last 48 hours prior to admission. She was recently admitted and discharged for flu illness on 06/21/2024. She was notably hypoxemic and hypercarbic on that admission. On arrival to ER, she was saturating 88 to 90% on 2 L nasal cannula. ABG
demonstrating acute on chronic CO2 retention, VBG 7.31, CO2 80. Prior to this she was 7.31 and 64. We are consulted for eval 06/29/24.
Acute hypoxemic respiratory failure
Acute on chronic hypercarbic respiratory failure
Recent admission for Influenza d/c 06/21/24
Leukocytosis
Generalized weakness/lethargy
Conditions present prior to admission:
SVT/paroxysmal atrial tachycardia
CVA/intracranial hemorrhage with left-sided deficits.
ADL dysfunction.
GERD.
Chronic pain
Anxiety/Depressive disorder
Irritable Bowel Syndrome
Sleep apnea
TMJ arthralgia
section
Former smoker, 3/-1PPD for 25+ years, quit in 1991
Plan
Acute hypoxemia reported, desat to 88%
She is placed on 2 L nasal cannula, she has required oxygen in the past
Denies any prior known history of lung disease but she was a former smoker for 25 years.
She has never been diagnosed with sleep apnea.
She has difficulty with transport and making physician office visits given her lack of mobility and [place].
VBG noted with acute on chronic process, prior baseline was noted to be in the 60s
She is now in the 80s
She denies any prior known history of sleep apnea though this is listed in her record
She does not feel she could evaluate as an outpatient for sleep study given her lack of transport and financial situation
Will consult case management for DME set up at home, she will need outpatient follow-up to manage her NIV at some point
Chest imaging reviewed, no acute process
Resolving PNA from Flu noted
Former smoker, no prior PFTs for review
Will obtain bedside study to evaluate
No indication for IV steroids
Aspiration precautions continue
Speech therapy evaluation 06/17/2024-level 4 pur�ed diet with thin liquids
She can be resumed on her prior diet
Monitor for arrhythmias-paroxysmal atrial tachycardia
Cardiology evaluation in past-correspondence reviewed-no PAT over the last 24 hours-initiate Toprol-XL 25 mg if recurrence occurs
Consider low-dose [id number] objection from a pulmonary perspective
Echocardiogram next week-can be done as an outpatient-no prior results in record for review
She has lack of OP FU
DVT prophylaxis-on Lovenox
Nutrition
Early mobilization
We will follow
Diagnostic Data:
Chest x-ray 06/16/2024-patchy parenchymal opacification right middle lobe likely representing pneumonia as well as a left lower lobe
CXR 06/28/24- Improved mild right basilar opacity most likely representing resolving pneumonia. Minimal left basilar opacity most likely representing subsegmental atelectasis and/or scarring.
Reports and relevant images were personally reviewed.
Total time spent on this consultation __76__ minutes which includes review of history, physical exam, medications, laboratory data, personal review of imaging, extensive review of outpatient records, discussion with care team and respiratory therapy.
--- NOTE | 2024-06-29 09:27 | W.PN.HOSP.TC ---
Addendum entered and electronically signed by Mookie Faust MD 06/29/24 15:46:
Blood culture 1 set reported to be gram-positive cocci in cluster
Presuming contaminant
Patient remains afebrile, continue monitoring off antibiotics
Original Note:
Today's Communication/Plan
-
see note
Assessment / Plan
Assessment / Plan
1. Acute toxic metabolic encephalopathy - Improved
Acute hypercapnic resp failure - Improved
Chronic hypoxic resp failure
-Patient has been lethargic/difficult to arouse for last [address] head without any abnormality
-Chest x-ray showing improved infiltrates. UA clear. COVID/flu negative
-VBG showing pCO2 of 80 and pH 7.3 -patient provided BiPAP trial in ER and during nighttime
-Patient mentation is back to normal at this point
-Pulmonology consulted for further help and evaluation with patient recurrent hypercarbic respiratory failure. Patient will benefit with PAP therapy in my opinion.
2. Episode of fever
Recent aspiration pneumonia/Flu A infection
-Patient has finished course of antibiotic just week back
-Chest x-ray did not show any new infiltrate
-Patient got vancomycin and cefepime in ER, currently on hold
-Pulmonary septic workup has been negative
-Follow-up blood culture report
-Start antibiotics with broad-spectrum coverage if patient spikes temperature above 100.5 Fahrenheit again
4. chronic pain and narcotic dependence
-Patient has been on oxycodone 40 mg every 6 hours. Was on total 200 mg of oxycodone daily over 15 years per family, this was decreased to total of 160 mg on last admission
-Patient has been resumed back on oxycodone 40 mg every 6 hours
-Patient to be resumed back on Klonopin half milligram every 6 hours as needed as well
-Continue duloxetine home dose
5. Hypocalcemia
-Low ionized calcium of 1.06. Total calcium 7 point
-Check vitamin D level
-Provide ca/vitD tab
-Currently no clinical symptoms
history of atrial tachycardia
history of intracranial hemorrhage/CVA
gastroesophageal reflux disease
DVT PPX - scd
Full code-confirmed with spouse at bedside
Care plan discussed with patient spouse at bedside
Discussed with pulmonology
Total time spent :53 mins
I personally saw and examined the patient.
I have reviewed all diagnostic interpretations and treatment plans as written.
Time includes patient management by me, time spent at the patients bedside, time to review lab and imaging results, discussing patient care, documentation in the medical record, and time spent with the family or caregiver and discussing care plan
with RN/Consultants.
Anticipated Discharge: 24 - 48 hours
Subjective/Interval History
-
Date of Service: June 29, 2024
Patient mentation back to normal
Was able to tolerate BiPAP overnight
Remains afebrile
Patient feeling hungry and requesting diet
Objective Data
-
Labs:
Laboratory Results
06/29/24
04:29
WBC 6.3
Hgb 11.1 L
Hct 36.4 L
Plt Count 210
Sodium 141
Potassium 3.8
Chloride 96 L
Carbon Dioxide 35 H
BUN 7
Creatinine 0.4 L
Glucose 86
Calcium 7.6 L
Vital Signs:
Vital Signs
Temp Pulse Resp BP Pulse Ox
97.9 F 85 20 98/53 93
06/29/24 07:40 06/29/24 06:00 06/29/24 06:00 06/29/24 04:00 06/29/24 06:00
Review of Systems
-
Respiratory: Reports No Symptoms
Cardiac: Reports No Symptoms
Abdomen/GI: Reports No Symptoms
Physical Exam
-
General: No Apparent Distress and Comfortable
HEENT: Oxygen
Respiratory: Clear to Auscultation
Cardiac: Regular Rhythm and S1/S2; Negative Murmur or Rub
GI: Soft, Nontender and Nondistended
Musculoskeletal: No Edema
Neuro: Awake, Alert, Oriented and No Motor Deficits
Psych: Calm
[2024-06-29 10:37] LABS: Vitamin D, 25-OH*** < 12.8 ng/mL (30-80)
[2024-06-29 11:18] LABS: Intact PTH 78.8 pg/ml (13.6-85.8)
[2024-06-29] MEDS: OSCAL 500 + D 500 MG PO (12:33)
--- NOTE | 2024-06-29 13:09 | PTOTSP ---
Acute Care Evaluation
Pt currently presents with clinical signs of moderate oral dysphagia and mild pharyngoesophageal dysphagia characterized by difficulty breaking down solids and prolonged mastication and bolus formation without upper dentures present as well as need
for use of compensatory strategies (e.g. single sips, prep set) with thin liquids to avoid penetration/aspiration and intermittent eructation with ingestion of thin liquids. Pt with hx of GERD.
Recommendations:
- Upgrade pt's diet to MINCED AND MOIST SOLIDS (Level 5) and continue with THIN LIQUIDS (single sips + prep set) and meds whole in puree.
- Continue with aspiration precautions and reflux precautions: HOB upright for all PO intake and for at least 60 minutes after PO intake; small bites; small sips; small frequent meals; slow intake rate; reduce distractions/talking during PO intake.
- CLAMMER to f/u re: diet tolerance, trial diet upgrades when pt has upper dentures available, and to determine if pt would benefit from an instrumental swallow study.
--- NOTE | 2024-06-29 15:51 | PTCARENOTE ---
Rec'd pt this AM. This AM pt talkative, awake, alert. After receiving Klonipin pt became somnolent, arousable but when awake, appeared to be overly sedated. She made comments that she was 'dope sick' since she says she missed her med doses. RN
explained that she had gotten her Oxycontin and Klonipin. Discussed with Dr. Faust. Will continue with schedeled meds. Klonipin is PRN
--- NOTE | 2024-06-29 16:08 | CM ---
CM consult for bipap
Referral started to [facility] as [facility] provide pt her home O2
Clinical packet and script on chart awaiting pulm signature
Will need pulm note with clinical justification for device as well
Once obtained, will need to fax completed packet and script to [facility]
TT/Dr Stoddard signature request
Bedside meeting with pt and spouse
Update provided
VN discussed and referral to [facility]
Discharge Disposition- home wit [facility], needs new bipap arranged through [employer]
[2024-06-29] MEDS: LOVENOX SC ×2 (17:54→17:57)
[2024-06-30] VITALS (14 sets, daily range): BP systolic 101–129; BP diastolic 49–76; PULSE 2–87
[2024-06-30] MEDS: OSCAL 500 + D 500 MG PO ×3 (00:13→21:23)
[2024-06-30] MEDS: OXYCONTIN (CONTROLLED RELEASE) 40 MG PO ×5 (00:13→23:06)
--- NOTE | 2024-06-30 00:32 | PTCARENOTE ---
Received pt from day shift RN. pt is aaox3. NSR on monitor. 96% on 2L at change of shift. Pt received SANDEEP meds (see MAR). Pt now resting in bed with bipap on, sat 95%. Pt has call keyes in reach and rings appropriately.
--- NOTE | 2024-06-30 02:27 | DOWNTIME ---
There was a [employer] Downtime on 06/30/2024 from 0100 to 06/30/2023 at 0205 . Downtime documentation of patient's care, including medication administrations, has been reconciled in the electronic record per guidelines. Refer to the
patient's paper chart under the miscellaneous tab to see printed paper medication records and downtime forms.
[2024-06-30 06:00] LABS: Hematocrit 36.1 % (37.0-47.0); Hemoglobin 11.4 g/dL (12.0-16.0); Mean Corp Hgb Conc. 31.6 g/dL (33.0-37.0); Mean Corpuscular Hgb 29.5 pg (27.0-31.0); Mean Corpuscular Volume 93.3 fL (81.0-99.0); Mean Platelet Volume 9.7 fL (7.4-10.4); Platelet Count 222 10^3/uL (130-400); Red Blood Cell Count 3.87 10^6/uL (4.20-5.40); Red Cell Dist. Width 13.2 % (11.5-14.5); White Blood Cell Count 8.7 10^3/uL (4.8-10.8)
[2024-06-30 06:24] LABS: Blood Urea Nitrogen 14 mg/dl (7-17); Calcium 8.1 mg/dl (8.4-10.2); Chloride 95 mmol/L (98-107); Estimated Creatinine Clearance 81 ml/min; Glucose 97 mg/dl (70-99); Potassium 3.9 mmol/L (3.5-5.1); Sodium 138 mmol/L (135-145); eGFR > 60.00
[2024-06-30 06:34] LABS: Carbon Dioxide 36 mmol/L (22-30)
[2024-06-30] MEDS: ProAIR HFA INHALER 1 PUFF INH (07:53)
[2024-06-30] MEDS: PROTONIX 40 MG PO (08:32)
[2024-06-30] MEDS: CYMBALTA DELAYED RELEASE 30 MG PO ×2 (08:33→17:23)
--- NOTE | 2024-06-30 08:41 | W.PN.PUL3 ---
Today's Communication / Plan
-
Spirometry with confirmation of COPD diagnosis, reviewed with patient and
Will start new inhalers to use, COPD education
NIV set up at home, will need FU as OP, will leave information in chart
CM c/s for set up
-----
The patient has history of COPD and chronic hypercarbic respiratory failure which requires oxygen to alleviate hypoxemia related findings including severe dyspnea on exertion. Due to patient's disease progression of COPD and chronic respiratory
failure, NIV is needed at this time. BIPAP has been ruled out due to patient's progressive disease state. Without NIV, patient will experience clinical decline and further hospitalization.
Assessment
-
Patient is a 74-year-old female with previous history of chronic pain and narcotic dependence, intracranial hemorrhage/CVA, anxiety/depression, atrial tach, former smoker presenting to ER for increasing lethargy and minimally responsive over the
last 48 hours prior to admission. She was recently admitted and discharged for flu illness on 06/21/2024. She was notably hypoxemic and hypercarbic on that admission. On arrival to ER, she was saturating 88 to 90% on 2 L nasal cannula. ABG
demonstrating acute on chronic CO2 retention, VBG 7.31, CO2 80. Prior to this she was 7.31 and 64. We are consulted for eval 06/29/24.
Acute hypoxemic respiratory failure
Acute on chronic hypercarbic respiratory failure
Recent admission for Influenza d/c 06/21/24
Leukocytosis
Generalized weakness/lethargy
COPD, new/severe
Conditions present prior to admission:
SVT/paroxysmal atrial tachycardia
CVA/intracranial hemorrhage with left-sided deficits.
ADL dysfunction.
GERD.
Chronic pain
Anxiety/Depressive disorder
Irritable Bowel Syndrome
Sleep apnea
TMJ arthralgia
section
Former smoker, 3/4-1PPD for 25+ years, quit in 1991
Plan
Acute hypoxemia reported, desat to 88%
She is placed on 2 L nasal cannula, she has required oxygen in the past
Will need home O2 assessment
Denies any prior known history of lung disease but she was a former smoker for 25 years.
She has never been diagnosed with sleep apnea.
She has difficulty with transport and making physician office visits given [place]
VBG noted with acute on chronic process, prior baseline was noted to be in the 60s
She is now in the 80s
She denies any prior known history of sleep apnea though this is listed in her record
She does not feel she could evaluate as an outpatient for sleep study given her lack of transport and financial situation
Will consult case management for DME set up at home, she will need outpatient follow-up to manage her NIV at some point
Chest imaging reviewed, no acute process
Resolving PNA from Flu noted
Former smoker, no prior PFTs for review
Will obtain bedside study to evaluate--reviewed with patient and family
Severe COPD is noted, will start inhalers
No indication for IV steroids
Aspiration precautions continue
Speech therapy evaluation 06/17/2024-level 4 pur�ed diet with thin liquids
She can be resumed on her prior diet
Monitor for arrhythmias-paroxysmal atrial tachycardia
Cardiology evaluation in past-correspondence reviewed-no PAT over the last 24 hours-initiate Toprol-XL 25 mg if recurrence occurs
Consider low-dose [id number]-[id number]-pf objection from a pulmonary perspective
Echocardiogram next week-can be done as an outpatient-no prior results in record for review
She has lack of OP FU
DVT prophylaxis-on Lovenox
Nutrition
Early mobilization
PT eval with discharge planning per team
Diagnostic Data:
Chest x-ray 06/16/2024-patchy parenchymal opacification right middle lobe likely representing pneumonia as well as a left lower lobe
CXR 06/28/24- Improved mild right basilar opacity most likely representing resolving pneumonia. Minimal left basilar opacity most likely representing subsegmental atelectasis and/or scarring.
Spirometry 1/21/25- FEV1 0.43L 23%, FVC 1.19L 38%, ratio 0.6--severe obstruction, on 1 acceptable attempt
Reports and relevant images were personally reviewed.
Total time spent on this encounter __56__ minutes which includes review of history, physical exam, medications, laboratory data, personal review of imaging, extensive review of outpatient records, discussion with care team and respiratory therapy.
Subjective Data
-
Date of Service:
Date of Service: June 30, 2024
Chief Complaint: Pulmonary Follow Up
Subjective:
Doing well today, no changes
at bedside
Objective Data
Data Reviewed
Vital Signs / I&O / Oxygen:
Vital Signs
Temp Pulse Resp BP Pulse Ox
97.7 F 91 18 105/67 96
06/30/24 07:45 06/30/24 07:56 06/30/24 07:56 06/30/24 04:00 06/30/24 07:56
Intake and Output
06/29/24 06/30/24 07/01/24
06:59 06:59 06:59
Intake Total 480 / 480
Output Total 700 / 700
Balance -220 / -220
SaO2 96
Nasal Cannula flow liters per 2
minute
Physical Exam
General: Comfortable and Other (NAD)
HEENT: Normocephalic, Anicteric and Moist Mucous Membranes
Cardiovascular: S1-S2, Regular Rhythm and Peripheral Edema (trace)
Respiratory: Clear, Non-Labored Respirations and Other (overall decreased, kyphosis present)
GI: Soft, Non Distended and Non Tender
Neurology: Awake, Alert, Oriented and No Motor Deficits
Skin: Warm, Dry and Other (pale)
Labs/Micro/Reports
Lab Data
06/30/24 05:49
06/30/24 05:49
Microbiology
06/28/24 07:27 Blood/Venous Blood Culture - Preliminary
No Growth in 48 hours- Final report to follow
06/28/24 07:26 Blood/Venous Blood Culture - Preliminary
Positive culture in progress
06/28/24 07:26 Blood/Venous Gram Stain - Preliminary
06/28/24 07:27 Nasal Swab Influenza Types A & B ([facility]) - Final
Negative for Influenza A & B, NAAT
Negative results must be combined with clinical observations
and patient history.
Nucleic Acid Amplification test (NAAT)performed on the
[employer] platform.
--- NOTE | 2024-06-30 09:34 | VNURNOTE ---
Home Health Liaison spoke with patient's spouse Miguel A to discuss [facility] nurse/therapy, visits, schedule and homebound status. He is agreeable and understands that visits at home will be 2-3 x per week to assess and teach medical management. He stated
it is difficult to get pt out of house to Dr appointments. Spouse cut phone call short as Dr was in to see patient. PCP listed is Dr Holley Solomon. Patient was supposed to have Televisit on 06/28 but was hospitalized. Liaison spoke with Selina at PCP
office. Per Selina, patient to re-schedule televisit. Roxy Tomas [employer]IMER PRESS OPERATOR will sign for VN orders- noted on referral. [facility] referral completed in [facility]. Bipap DME set up pending.
--- NOTE | 2024-06-30 11:10 | PTCARENOTE ---
Assumed care of patient at beginning of this shift from previous RN. at bedside and requesting to speak with physician about concerns that patient is not receiving klonopin but has been on this med for years. Dr Faust up to see patient and
speak with ; he restarted med at a decreased dose. Pharmacist notified that med not available in pyxis; will give when it arrives. See worklist for full assessment, vital signs and updated orders; see MAR for med administration.
[2024-06-30] MEDS: KLONOPIN 0.25 MG PO ×2 (11:46→17:22)
--- NOTE | 2024-06-30 13:01 | W.PN.HOSP.TC ---
Today's Communication/Plan
-
see note
possible d/c tomorrow
Assessment / Plan
Assessment / Plan
1. Acute toxic metabolic encephalopathy - Improved
Acute hypercapnic resp failure - Improved
Chronic hypoxic resp failure
-Patient has been lethargic/difficult to arouse for last [address] head without any abnormality
-Chest x-ray showing improved infiltrates. UA clear. COVID/flu negative
-VBG showing pCO2 of 80 and pH 7.3 -patient provided BiPAP trial in ER and during nighttime
-Patient mentation is back to normal at this point
-Discussed with pulmonology, bedside PFT done. Patient will be qualified for trilogy at home
-Patient continued to be kept on BiPAP at nighttime.
2. Episode of fever
Recent aspiration pneumonia/Flu A infection
False positive blood culture
-Patient has finished course of antibiotic just week back
-Chest x-ray did not show any new infiltrate
-Patient got vancomycin and cefepime in ER, currently on hold
-Pulmonary septic workup has been negative
-1 set of blood culture growing CONS - contaminant
4. chronic pain and narcotic dependence
Generalized anxiety disorder
-Patient has been on oxycodone 40 mg every 6 hours. Was on total 200 mg of oxycodone daily over 15 years per family, this was decreased to total of 160 mg on last admission
-Patient has been resumed back on oxycodone 40 mg every 6 hours
-Patient getting excessively sedated with 0.5 mg of Klonopin, dose decreased to 0.25 mg
-Continue duloxetine home dose
5. Hypocalcemia
Vit D deficiency
-Low ionized calcium of 1.06. Total calcium 7 point
-Vit D 25 OH levle < 12.5
-Provide ca/vitD tab
-Currently no clinical symptoms
history of atrial tachycardia
history of intracranial hemorrhage/CVA
gastroesophageal reflux disease
DVT PPX - scd
Full code-confirmed with spouse at bedside
06/29 21 Care plan discussed with patient spouse at bedside
Discussed with pulmonology
Anticipated Discharge: 24 - 48 hours
Subjective/Interval History
-
Date of Service: June 30, 2024
Patient mentation is clear
Able to tolerate diet without any problems
patient is afebrile
no other reported problems
Objective Data
-
Labs:
Laboratory Results
06/30/24
05:49
WBC 8.7
Hgb 11.4 L
Hct 36.1 L
Plt Count 222
Sodium 138
Potassium 3.9
Chloride 95 L
Carbon Dioxide 36 H
BUN 14
Creatinine 0.4 L
Glucose 97
Calcium 8.1 L
Vital Signs:
Vital Signs
Temp Pulse Resp BP Pulse Ox
97.7 F 102 20 107/50 99
06/30/24 07:45 06/30/24 12:00 06/30/24 12:00 06/30/24 12:00 06/30/24 12:00
I&O
06/29/24 06/30/24 07/01/24
06:59 06:59 06:59
Intake Total 480 / 480
Output Total 700 / 700
Balance -220 / -220
Review of Systems
-
Respiratory: Reports No Symptoms
Cardiac: Reports No Symptoms
Abdomen/GI: Reports No Symptoms
Physical Exam
-
General: No Apparent Distress and Comfortable
HEENT: Oxygen
Respiratory: Clear to Auscultation
Cardiac: Regular Rhythm and S1/S2; Negative Murmur or Rub
GI: Soft, Nontender and Nondistended
Musculoskeletal: No Edema
Neuro: Awake, Alert, Oriented and No Motor Deficits
Psych: Calm
--- NOTE | 2024-06-30 15:52 | CM ---
CM reviewed chart- possible dc tomorrow
TT/Dr Stoddard-will need signature on NIV script
Script on chart
Once received, will need to fax to Marga/Pavithra
Pt [facility]
Discharge Disposition- home with VN and new NIV/[employer]
[2024-06-30] MEDS: CYMBALTA DELAYED RELEASE 20 MG PO (17:23)
[2024-06-30] MEDS: LOVENOX 40 MG SC (17:23)
--- NOTE | 2024-06-30 23:57 | PTCARENOTE ---
Received pt from day shift RN. pt is aaox3. NSR on monitor. 96% on Bipap (Pt wears bipap HS) Pt received SANDEEP medications (see MAR). Pt now resting in bed with call keyes in reach.
[2024-07-01] VITALS (14 sets, daily range): BP systolic 95–130; BP diastolic 51–70; PULSE 2–97
[2024-07-01 04:40] LABS: Hematocrit 36.4 % (37.0-47.0); Mean Corp Hgb Conc. 30.2 g/dL (33.0-37.0); Mean Corpuscular Hgb 28.2 pg (27.0-31.0); Mean Corpuscular Volume 93.3 fL (81.0-99.0); Mean Platelet Volume 10.1 fL (7.4-10.4); Platelet Count 225 10^3/uL (130-400); Red Cell Dist. Width 13.1 % (11.5-14.5); White Blood Cell Count 5.9 10^3/uL (4.8-10.8)
[2024-07-01 05:02] LABS: Blood Urea Nitrogen 16 mg/dl (7-17); Chloride 94 mmol/L (98-107); Estimated Creatinine Clearance 81 ml/min; Glucose 105 mg/dl (70-99); Potassium 4.4 mmol/L (3.5-5.1); Sodium 138 mmol/L (135-145); eGFR > 60.00
[2024-07-01 05:12] LABS: Carbon Dioxide 35 mmol/L (22-30)
[2024-07-01] MEDS: OXYCONTIN (CONTROLLED RELEASE) 40 MG PO ×4 (06:25→23:05)
[2024-07-01] MEDS: SPIRIVA RESPIMAT 2.5 MCG 2 PUFF INH (07:17)
--- NOTE | 2024-07-01 09:05 | W.PN.PUL3 ---
Today's Communication / Plan
-
Remains stable, no new complaints
BIPAP continued, NIV ordered for home set up, CM aware
Home O2 eval
PT eval, discharge planning per team
Had prolonged discussion with , all questions answered
OP FU arrangement in 2-3 months
Assessment
-
Patient is a 74-year-old female with previous history of chronic pain and narcotic dependence, intracranial hemorrhage/CVA, anxiety/depression, atrial tach, former smoker presenting to ER for increasing lethargy and minimally responsive over the
last 48 hours prior to admission. She was recently admitted and discharged for flu illness on 06/21/2024. She was notably hypoxemic and hypercarbic on that admission. On arrival to ER, she was saturating 88 to 90% on 2 L nasal cannula. ABG
demonstrating acute on chronic CO2 retention, VBG 7.31, CO2 80. Prior to this she was 7.31 and 64. We are consulted for eval 06/29/24.
Acute hypoxemic respiratory failure
Acute on chronic hypercarbic respiratory failure
Recent admission for Influenza d/c 06/21/24
Leukocytosis
Generalized weakness/lethargy
COPD, new/severe
Conditions present prior to admission:
SVT/paroxysmal atrial tachycardia
CVA/intracranial hemorrhage with left-sided deficits.
ADL dysfunction.
GERD.
Chronic pain
Anxiety/Depressive disorder
Irritable Bowel Syndrome
Sleep apnea
TMJ arthralgia
section
Former smoker, 3/4-1PPD for 25+ years, quit in 1991
Plan
Acute hypoxemia reported, desat to 88%
She is placed on 2 L nasal cannula, she has required oxygen in the past
Home O2 assessment
Denies any prior known history of lung disease but she was a former smoker for 25 years.
She has never been diagnosed with sleep apnea.
She has difficulty with transport and making physician office visits given [place] of mobility [place]
VBG noted with acute on chronic process, prior baseline was noted to be in the 60s
She is now in the 80s
She denies any prior known history of sleep apnea though this is listed in her record
She does not feel she could evaluate as an outpatient for sleep study given her lack of transport and financial situation
Will consult case management for DME set up at home, she will need outpatient follow-up to manage her NIV at some point
Forms are signed
Chest imaging reviewed, no acute process
Resolving PNA from Flu noted
Former smoker, no prior PFTs for review
Will obtain bedside study to evaluate--reviewed with patient and family
Severe COPD is noted, will start inhalers
No indication for IV steroids
Aspiration precautions continue
Speech therapy evaluation 06/17/2024-level 4 pur�ed diet with thin liquids
She can be resumed on her prior diet
Monitor for arrhythmias-paroxysmal atrial tachycardia
Cardiology evaluation in past-correspondence reviewed-no PAT over the last 24 hours-initiate Toprol-XL 25 mg if recurrence occurs
Consider low-dose [id number]-xy objection from a pulmonary perspective
Echocardiogram next week-can be done as an outpatient-no prior results in record for review
She has lack of OP FU
DVT prophylaxis-on Lovenox
Nutrition
Early mobilization
PT eval with discharge planning per team
Had prolonged discussion with , all questions answered
Diagnostic Data:
Chest x-ray 06/16/2024-patchy parenchymal opacification right middle lobe likely representing pneumonia as well as a left lower lobe
CXR 06/28/24- Improved mild right basilar opacity most likely representing resolving pneumonia. Minimal left basilar opacity most likely representing subsegmental atelectasis and/or scarring.
Spirometry 06/29/24- FEV1 0.43L 23%, FVC 1.19L 38%, ratio 0.6--severe obstruction, on 1 acceptable attempt
Reports and relevant images were personally reviewed.
Total time spent on this encounter __61__ minutes which includes review of history, physical exam, medications, laboratory data, personal review of imaging, extensive review of outpatient records, discussion with care team and respiratory therapy.
Subjective Data
-
Date of Service:
Date of Service: July 01, 2024
Chief Complaint: Pulmonary Follow Up
Subjective:
No new complaints
Remains on BIPAP at night
at bedside
Objective Data
Data Reviewed
Vital Signs / I&O / Oxygen:
Vital Signs
Temp Pulse Resp BP Pulse Ox
97.6 F 87 18 98/51 99
07/01/24 04:56 07/01/24 07:22 07/01/24 07:22 07/01/24 06:00 07/01/24 07:22
Intake and Output
06/30/24 07/01/24 07/02/24
06:59 06:59 06:59
Intake Total 480 / 480 480 / 480
Output Total 700 / 700 900 / 900
Balance -220 / -220 -420 / -420
SaO2 99
Nasal Cannula flow liters per 2
minute
Physical Exam
General: Comfortable and Other (NAD)
HEENT: Normocephalic, Anicteric and Moist Mucous Membranes
Cardiovascular: S1-S2, Regular Rhythm and Peripheral Edema (trace)
Respiratory: Clear, Non-Labored Respirations and Other (overall decreased, kyphosis present)
GI: Soft, Non Distended and Non Tender
Neurology: Awake, Alert, Oriented and No Motor Deficits
Skin: Warm, Dry and Other (pale)
Labs/Micro/Reports
Lab Data
07/01/24 04:24
07/01/24 04:24
Microbiology
06/28/24 07:27 Blood/Venous Blood Culture - Preliminary
No Growth in 72 hours- Final report to follow
06/28/24 07:26 Blood/Venous Blood Culture - Preliminary
Coagulase neg. staphylococcus
Additional testing on request
06/28/24 07:26 Blood/Venous Gram Stain - Preliminary
06/28/24 07:27 Nasal Swab Influenza Types A & B ([facility]) - Final
Negative for Influenza A & B, NAAT
Negative results must be combined with clinical observations
and patient history.
Nucleic Acid Amplification test (NAAT)performed on the
[employer] platform.
[2024-07-01] MEDS: CYMBALTA DELAYED RELEASE 30 MG PO ×2 (09:29→17:16)
[2024-07-01] MEDS: OSCAL 500 + D 500 MG PO ×2 (09:29→19:38)
[2024-07-01] MEDS: PROTONIX 40 MG PO (09:29)
--- NOTE | 2024-07-01 10:50 | PTCARENOTE ---
Assumed care of patient at beginning of this shift from previous RN; at bedside on initial assessment. Patient stated her pain is controlled at present time. reports patient has not had a bm in at least 3 days and senokot at home;
prn senokot is ordered as well as miralax and dulcolax. Will administer senokot as per patient and request. See worklist for full assessment and vital signs.
[2024-07-01] MEDS: SENOKOT-S 1 TABLET PO (11:00)
[2024-07-01] MEDS: KLONOPIN 0.25 MG PO ×3 (11:00→18:28)
--- NOTE | 2024-07-01 11:30 | CM ---
Addendum entered by Adri Eduardo 07/01/24 14:59:
CM contacted [employer] liaison re; plan for discharge tomorrow morning. Patient at bedside and plan is for him to transport patient home with home O2. Patient [facility] liaison also updated. IMM completed and signed form placed on chart. CM will
continue to follow for discharge planning needs.
Plan; [facility] and NIV
Addendum entered by Adri Eduardo 07/01/24 14:23:
NIV documentation received and per [employer] patient needs to be home prior to 2pm the day of discharge to have delivery of the NIV for that day. CM reached out to physician to update and await response. CM will continue to follow for discharge
planning needs.
Plan; home with NIV/ [facility]
Original Note:
Patient seen at bedside. Script completed on NIV script and faxed to [facility] . CM awaiting confirmation of receipt and time for delivery. CM will continue to follow for discharge planning needs.
Plan; home with [facility] and new niv[facility]
--- NOTE | 2024-07-01 14:59 | W.PN.HOSP.TC ---
Today's Communication/Plan
-
discharge planning for tomorrow morning
Assessment / Plan
Assessment / Plan
1. Acute toxic metabolic encephalopathy - Improved
Acute hypercapnic resp failure - Improved
Chronic hypoxic resp failure
-Patient has been lethargic/difficult to arouse for last [address] head without any abnormality
-Chest x-ray showing improved infiltrates. UA clear. COVID/flu negative
-VBG showing pCO2 of 80 and pH 7.3 -patient provided BiPAP trial in ER and during nighttime
-Patient mentation is back to normal at this point
-Discussed with pulmonology, bedside PFT done. Patient will be qualified for trilogy at home
-Patient continued to be kept on BiPAP at nighttime.
2. Episode of fever
Recent aspiration pneumonia/Flu A infection
False positive blood culture
-Patient has finished course of antibiotic just week back
-Chest x-ray did not show any new infiltrate
-Patient got vancomycin and cefepime in ER, currently on hold
-Pulmonary septic workup has been negative
-1 set of blood culture growing CONS - contaminant
4. chronic pain and narcotic dependence
Generalized anxiety disorder
-Patient has been on oxycodone 40 mg every 6 hours. Was on total 200 mg of oxycodone daily over 15 years per family, this was decreased to total of 160 mg on last admission
-Patient has been resumed back on oxycodone 40 mg every 6 hours
-Patient getting excessively sedated with 0.5 mg of Klonopin, dose decreased to 0.25 mg
-Continue duloxetine home dose
5. Hypocalcemia
Vit D deficiency
-Low ionized calcium of 1.06. Total calcium 7 point
-Vit D 25 OH levle < 12.5
-Provide ca/vitD tab
-Currently no clinical symptoms
history of atrial tachycardia
history of intracranial hemorrhage/CVA
gastroesophageal reflux disease
DVT PPX - scd
Full code-confirmed with spouse at bedside
06/29 Care plan discussed with patient spouse at bedside
Discussed with pulmonology
Anticipated Discharge: Within 24 hours
Subjective/Interval History
-
Date of Service: July 01, 2024
Patient feeling back to normal
No reported excessive sedation
Able to tolerate BiPAP
Objective Data
-
Labs:
Laboratory Results
07/01/24
04:24
WBC 5.9
Hgb 11.0 L
Hct 36.4 L
Plt Count 225
Sodium 138
Potassium 4.4
Chloride 94 L
Carbon Dioxide 35 H
BUN 16
Creatinine 0.5 L
Glucose 105 H
Calcium 8.0 L
Vital Signs:
Vital Signs
Temp Pulse Resp BP Pulse Ox
98.2 F 98 13 114/54 98
07/01/24 11:40 07/01/24 10:00 07/01/24 10:00 07/01/24 10:00 07/01/24 10:00
I&O
06/30/24 07/01/24 07/02/24
06:59 06:59 06:59
Intake Total 480 / 480 480 / 480
Output Total 700 / 700 900 / 900
Balance -220 / -220 -420 / -420
Review of Systems
-
Respiratory: Reports No Symptoms
Cardiac: Reports No Symptoms
Abdomen/GI: Reports No Symptoms
Physical Exam
-
General: No Apparent Distress and Comfortable
HEENT: Oxygen
Respiratory: Clear to Auscultation
Cardiac: Regular Rhythm and S1/S2; Negative Murmur or Rub
GI: Soft, Nontender and Nondistended
Musculoskeletal: No Edema
Neuro: Awake, Alert, Oriented and No Motor Deficits
Psych: Calm
--- NOTE | 2024-07-01 15:13 | PTCARENOTE ---
"Called to patient's room by stating patient needed more klonopin that she was going through withdrawal and nauseous; patient stated she was 'dope sick.' Patient was given prn dose of klonopin at 11:00 and oxycodone at 12:21. TT sent to Dr Govind (~) with all of this information and asked him to speak with . He called then ordered a one-time extra klonopin 0.25mg which was given. "
--- NOTE | 2024-07-01 15:24 | VNURNOTE ---
[facility] liaison met patient and spouse at bedside. Continued prior conversation about [facility] services, explained services provided skilled, short-term, intermittent care. Advised that [facility] will call ahead of time to schedule visits. Brochure provided
with contact info. Bipap through [employer].
[2024-07-01] MEDS: CYMBALTA DELAYED RELEASE 20 MG PO (17:16)
[2024-07-01] MEDS: LOVENOX 40 MG SC (17:16)
--- NOTE | 2024-07-01 20:30 | PTCARENOTE ---
Received pt from [facility]min RN. Pt AAOx3, able to make needs known. at bedside. Pt assessed. 20:00 meds given. VSS. Agree with previous nurse's assessment. Report given to Tiara Yanes RN. Pt transferred to [facility] and brought to Rm [id number].
[2024-07-02 03:00] VITALS: BP 132/73
[2024-07-02 03:41] VITALS: PULSE 2
--- NOTE | 2024-07-02 05:59 | PTCARENOTE ---
Patient arrived on unit @2011 via stretcher from IMU. Patient AAOX3, denies any pain or discomfort, by bedside, call keyes placed within reach.
[2024-07-02] MEDS: OXYCONTIN (CONTROLLED RELEASE) 40 MG PO (06:12)
[2024-07-02] MEDS: KLONOPIN 0.25 MG PO (06:54)
[2024-07-02 07:49] VITALS: BP 131/66
[2024-07-02] MEDS: SPIRIVA RESPIMAT 2.5 MCG 2 PUFF INH (08:00)
[2024-07-02] MEDS: PROTONIX 40 MG PO (08:25)
[2024-07-02] MEDS: OSCAL 500 + D 500 MG PO (08:25)
[2024-07-02] MEDS: CYMBALTA DELAYED RELEASE 30 MG PO (08:25)
--- NOTE | 2024-07-02 15:59 | W.PN.HOSP.TC ---
Today's Communication/Plan
-
d/c home
Assessment / Plan
Assessment / Plan
1. Acute toxic metabolic encephalopathy - Improved
Acute hypercapnic resp failure - Improved
Chronic hypoxic resp failure
-Patient has been lethargic/difficult to arouse for last [address]
-CT head without any abnormality
-Chest x-ray showing improved infiltrates. UA clear. COVID/flu negative
-VBG showing pCO2 of 80 and pH 7.3 -patient provided BiPAP trial in ER and during nighttime
-Patient mentation is back to normal at this point
-Discussed with pulmonology, bedside PFT done. Patient will be qualified for trilogy at home
-Patient continued to be kept on BiPAP at nighttime.
2. Episode of fever
Recent aspiration pneumonia/Flu A infection
False positive blood culture
-Patient has finished course of antibiotic just week back
-Chest x-ray did not show any new infiltrate
-Patient got vancomycin and cefepime in ER, currently on hold
-Pulmonary septic workup has been negative
-1 set of blood culture growing CONS - contaminant
4. chronic pain and narcotic dependence
Generalized anxiety disorder
-Patient has been on oxycodone 40 mg every 6 hours. Was on total 200 mg of oxycodone daily over 15 years per family, this was decreased to total of 160 mg on last admission
-Patient has been resumed back on oxycodone 40 mg every 6 hours
-Patient getting excessively sedated with 0.5 mg of Klonopin, dose decreased to 0.25 mg
-Continue duloxetine home dose
5. Hypocalcemia
Vit D deficiency
-Low ionized calcium of 1.06. Total calcium 7 point
-Vit D 25 OH levle < 12.5
-Provide ca/vitD tab
-Currently no clinical symptoms
history of atrial tachycardia
history of intracranial hemorrhage/CVA
gastroesophageal reflux disease
DVT PPX - scd
Full code-confirmed with spouse at bedside
06/29 Care plan discussed with patient spouse at bedside
Discussed with pulmonology
More than 30 minutes spent in discharge including
Final examination of the patient
Summarizing hospital stay
Instructions for continuing care to all relevant caregivers
Preparation of discharge records, prescriptions, and referral forms
Total time spent (in minutes): 38 mins
Anticipated Discharge: Today
Subjective/Interval History
-
Date of Service: July 02, 2024
No issues overnight
Objective Data
-
Vital Signs:
Vital Signs
Temp Pulse Resp BP Pulse Ox
98.4 F 92 18 131/66 96
07/02/24 07:49 07/02/24 08:07 07/02/24 08:07 07/02/24 07:49 07/02/24 08:07
I&O
07/01/24 07/02/24 07/03/24
06:59 06:59 06:59
Intake Total 480 / 480 480 / 600 120 / 120
Output Total 900 / 900 400 / 400
Balance -420 / -420 80 / 200 120 / 120
Review of Systems
-
Respiratory: Reports No Symptoms
Cardiac: Reports No Symptoms
Abdomen/GI: Reports No Symptoms
Physical Exam
-
General: No Apparent Distress and Comfortable
HEENT: Oxygen
Respiratory: Clear to Auscultation
Cardiac: Regular Rhythm and S1/S2; Negative Murmur or Rub
GI: Soft, Nontender and Nondistended
Musculoskeletal: No Edema
Neuro: Awake, Alert, Oriented and No Motor Deficits
Psych: Calm
--- NOTE | 2024-07-02 16:46 | W.DCSUMMARY ---
Discharge Summary
Discharge Data
Date of Admission: 06/28/24
Date of Discharge: 07/02/24
-
Pending Results: No
Hospital Course
Discharging Physician : Dr Mookie Faust
Disposition : Home with home care
Primary care physician : Dr Holley Solomon
Principal Discharge diagnosis :
Acute on chronic hypercapnic respiratory failure
Chronic hypoxic respiratory failure
Toxic encephalopathy
Chronic obstructive pulmonary disease
Vitamin D deficiency
Episode of fever
Chronic Discharge diagnosis :
History of atrial tachycardia
history of intracranial hemorrhage
Gastroesophageal reflux disease
Chronic pain and narcotic dependence
Generalized anxiety disorder
Hospital Course :
Patient is a 74-year-old female with admission past medical history was brought in by spouse after patient was noted to having progressively more somnolent over 48 hours. Patient was just discharged from hospital before after being treated for
aspiration pneumonia. Of note patient have history of stroke/amatory dysfunction and narcotic dependence and dose of narcotic was reduced last visit. In ER evaluation patient tripped to have improving pneumonia. Blood gas was done showing repeat
hypercapnic respiratory failure. Patient was started on trial of BiPAP therapy and pulmonology was involved in care. Patient had rapid improvement in symptoms within 24 hours. Pulmonology did a bedside PFT and was diagnosed to have COPD . patient
was qualified for trilogy use at home. Equipment was arranged. Patient high dose of narcotic in need of benzodiazepine likely contributing to patient recurrent hypercapnic respiratory failure and this was discussed at length with patient spouse.
Patient spouse willing to wean patient slowly off and part of that patient Klonopin was decreased to 0.25 mg every 6 hours (50% dose reduction). Patient/spouse was concern of benzodiazepine withdrawal although was discussed as patient is getting
lower dose less likely to happen. After monitoring for further 48 hours patient was discharged home. Patient patient will be following up with pain specialist for further discussion of slow weaning off of pain/benzodiazepine medication.
Of note patient had episode of fever although no clear infection source was found. Septic workup was negative. 1 set of blood culture was falsely positive for Staphylococcus epidermis, deemed contaminant.
Important imaging findings :
None
Procedure findings :
None
Discharge Plan
-
Patient Disposition: Home with Home Care
Discharge Diagnosis/Procedures: Metabolic encephalopathy, hypercapnic resp failure, Fever episode
Condition: Fair
Diet: Other diet
Additional Diets: IDDSI 5 - Minced-moist solid, thin liquid
Activity: As tolerated
Driving Restrictions: No driving
Bathing Restrictions: OK to Shower
Referrals:
Juliette Stoddard Lawler, DO [Active] - None
(3-6 months, sleep visit
NIV set up)
Holley Solomon MD [Family Provider] - in one week
Prescriptions:
New
clonazepam 0.5 mg Tablet
0.25 mg PO QID@06,12,18,00 PRN (Reason: anxiety) Qty: 10 0RF
cholecalciferol (vitamin D3) [Vitamin D3] 50 mcg (2,000 unit) capsule
50 mcg PO DAILY Qty: 30 2RF
Continued
duloxetine [Cymbalta] 20 mg Capsule,Delayed Release(Dr/Ec)
20 mg PO QPM
duloxetine [Cymbalta] 30 mg Capsule,Delayed Release(Dr/Ec)
30 mg PO DAILY
duloxetine [Cymbalta] 30 mg Capsule,Delayed Release(Dr/Ec)
30 mg PO QPM
oxycodone [OxyContin] 40 mg Tablet,Oral Only,Ext.Rel.12 Hr
40 mg PO QID@06,12,18,00
albuterol sulfate 90 mcg/actuation Hfa Aerosol Inhaler
1 puff inhalation R Q4HPRN PRN (Reason: SOB/wheeze) Qty: 8.5 0RF
Spiriva Respimat 2.5 mcg/actuation Mist
2 puff inhalation R Q4HPRN PRN (Reason: SOB/wheeze) Qty: 4 0RF
esomeprazole magnesium [Nexium] 20 mg Capsule,Delayed Release(Dr/Ec)
20 mg PO DAILY
Discontinued
clonazepam 0.5 mg Tablet
0.5 mg PO QID@06,12,18,00
Discharge Orders:
Discharge Patient (As Directed); Ordered 07/02/24
Ordered By: Mookie Faust
Discharge Date and Time
Discharge Date/Time: 07/02/24 10:44
Print Language: PANAMANIAN
== END 2024-07-02 10:44 | disposition home health service (06) | DRG 189 ==
LOC: 3 WEST ACU 11:53
PROVIDERS: Physician Assistant; ADMITTING PHYSICIAN Hospitalist; CONSULT PHYSICIAN Internal Medicine; EMERGENCY PHYSICIAN Student in an Organized Health Care Education/Training Program; FAMILY PHYSICIAN Internal Medicine
PROC: 5A09357 Assistance with Respiratory Ventilation, Less than 24 Consecutive Hours, Continuous Positive Airway Pressure (ICD-10-PCS; 2024-06-30)
DX: J96.22 Acute and chronic respiratory failure with hypercapnia (principal); G92.8 Other toxic encephalopathy; F11.20 Opioid dependence, uncomplicated; I47.19 Other supraventricular tachycardia; T42.4X5A Adverse effect of benzodiazepines, initial encounter; J96.21 Acute and chronic respiratory failure with hypoxia; F32.A Depression, unspecified; G47.30 Sleep apnea, unspecified; G89.29 Other chronic pain; J44.9 Chronic obstructive pulmonary disease, unspecified; F41.1 Generalized anxiety disorder; E55.9 Vitamin D deficiency, unspecified; R50.9 Fever, unspecified; K21.9 Gastro-esophageal reflux disease without esophagitis; Z88.0 Allergy status to penicillin; Z88.1 Allergy status to other antibiotic agents; Z79.51 Long term (current) use of inhaled steroids; Z11.52 Encounter for screening for COVID-19; Z87.891 Personal history of nicotine dependence; Z86.73 Personal history of transient ischemic attack (TIA), and cerebral infarction without residual deficits; Z79.899 Other long term (current) drug therapy
CPT/HCPCS: 70450; 71045; 80048; 80053; 81003; 82306; 82330; 82340; 82805; 82962; 83605; 83690; 83970; 84443; 85025; 85027; 87040; 87150; 87205; 87502; 87811; 92526; 92610; 93005; 94010; 94640; 94660; 96361; 96374; 96375; 99285

== ENCOUNTER 2024-07-19 17:59 | Emergency (ER) | payer OTHER, MEDICARE, SELFPAY ==
[2024-07-19 18:09] VITALS: BP 155/98
[2024-07-19 18:37] LABS: % Basophils 0.3 % (0-2); % Immature Granulocytes 0.4 % (0-0.5); % Lymphocytes 6.9 % (20.5-51.1); % Monocytes 3.7 % (1.7-9.3); % Neutrophils 86.7 % (42.2-75.2); Absolute Basophils 0.1 10^3/uL (0-0.2); Absolute Eosinophils 0.3 10^3/uL (0-0.7); Absolute Immature Granulocytes 0.1 10^3/uL (0-0.05); Absolute Lymphocytes 1.1 10^3/uL (1.2-3.4); Absolute Monocytes 0.6 10^3/uL (0.1-0.6); Absolute Neutrophils 13.7 10^3/uL (1.4-6.5); Hematocrit 38.1 % (37.0-47.0); Hemoglobin 12.2 g/dL (12.0-16.0); Mean Corpuscular Hgb 28.9 pg (27.0-31.0); Mean Corpuscular Volume 90.3 fL (81.0-99.0); Mean Platelet Volume 9.9 fL (7.4-10.4); Nucleated Red Blood Cells % 0 %; Platelet Count 288 10^3/uL (130-400); Red Blood Cell Count 4.22 10^6/uL (4.20-5.40); Red Cell Dist. Width 13.6 % (11.5-14.5); White Blood Cell Count 15.8 10^3/uL (4.8-10.8)
[2024-07-19 18:38] VITALS: BP 138/71
[2024-07-19 18:49] LABS: Lactic Acid 1.9 mmol/L (0.7-2.0)
[2024-07-19 18:50] LABS: ALT (SGPT) 13 U/L (0-35); AST (SGOT) 21 U/L (14-36); Alkaline Phosphatase 89 U/L (38-126); Blood Urea Nitrogen 7 mg/dl (7-17); Calcium 8.5 mg/dl (8.4-10.2); Carbon Dioxide 34 mmol/L (22-30); Chloride 93 mmol/L (98-107); Glucose 183 mg/dl (70-99); Potassium 3.8 mmol/L (3.5-5.1); Sodium 136 mmol/L (135-145); Total Bilirubin 0.7 mg/dl (0.2-1.3); Total Protein 6.9 g/dl (6.3-8.2); eGFR > 60.00
[2024-07-19 19:00] VITALS: BP 127/71
[2024-07-19 19:01] LABS: NT-proBNP 308 pg/ml; Troponin I < 0.012 ng/ml
--- NOTE | 2024-07-19 19:09 | ED.GENMED ---
History of Present Illness
General
Chief Complaint: Breathing Problem
Time Seen by Provider: 07/19/24 18:48
History of Present Illness
History of Present Illness:
TIME OF INITIAL ENCOUNTER: 7:10 PM
HPI: I spoke to the at bedside for most of the history. This was concern for fevers as high as 101.6 today. She had been coughing more over the last several days. She was discharged a couple of weeks ago with hypercapnic respiratory
failure. Prior to that, she was treated for influenza/pneumonia. More recently, she had been doing well on Trelegy and has been much more awake throughout the days and decreased narcotic use. There was also concern of low sats of 88% despite 2
L/min of oxygen. states she was recently diagnosed with COPD as well.
EXAM:
GENERAL: Appears chronically ill
HEENT: Moist oral mucosa
CARDIOVASCULAR: No murmurs, normal heart rate, regular rhythm, No chest wall tenderness
PULMONARY: No significant respiratory distress, Rales are noted bilaterally with some decreased respiratory effort
ABDOMEN: Soft with no peritoneal signs, no tenderness
NEUROLOGIC: Generally weak, had stroke in the past
PSYCHIATRIC: Reasonable insight and judgement
EXTREMITIES: Nontender, no edema, moves all extremities equally
SKIN: Pale
NUMBER AND COMPLEXITY OF PROBLEMS ADDRESSED AT THE ENCOUNTER
� Chronic conditions affecting care: COPD
� Acute Exacerbation and/or Progression of Chronic Illness: This is an acute but recurring problem
� Differential Diagnosis includes: Bronchitis, COPD exacerbation, pneumonia, viral syndrome, doubt ACS/CHF
AMOUNT AND/OR COMPLEXITY OF DATA TO BE REVIEWED AND ANALYZED
� I performed an independent evaluation of and my interpretation is:
EKG: Sinus 122, left axis deviation, PVCs, nonspecific ST abnormality
CT:
X-rays: Chest x-ray personally reviewed and I suspect pneumonia at the right base�radiologist also suggested the likelihood of a small parapneumonic effusion
Laboratory Studies: White count 15.8, hemoglobin normal, bicarb 34, lactic 1.9, troponin less than 0.012, BNP 308
Other:
� Review of other/old records: I reviewed the last 2 discharge summaries
� Clinical information was obtained by an independent historian: I spoke to
� Prescriptions/Medications Considered but not given:
� Further testing considered but not performed: Considered ABG however the patient's states that overall she is much improved regarding mental status (no concern for hypercapnic respiratory failure at this point)
RISK OF COMPLICATIONS AND/OR MORBIDITY OR MORTALITY OF PATIENT MANAGEMENT
� Social determinants of health affecting care: Lives at home with
� Discussion with other providers:
� Escalation of care including admission/observation vs risk of discharge considered: Overall the patient is ill-appearing and arrived tachycardic but not febrile. He she apparently did have a fever earlier in the day.
Leukocytosis is noted. She did have increasing oxygen requirement at home. Currently on 3 L/min, she has virtually no symptoms and strongly prefers to go home. really does not want her to be admitted yet again. He is asking for
outpatient management which I feel is reasonable. Will give doxycycline and azithromycin (several antibiotic allergies). I did suggest that admitting would be safer however he states that they live close by and would absolutely bring her back if
symptoms worsen.
ANY OTHER UPDATES:
Past History
Past History
ED Past Medical History: Other (CVA/intracranial hemorrhage, post-CVA neuropathic pain)
Social History
Living: with family
Phy Exam
Physical Exam
Physical Exam:
See HPI
Scores
Heart Failure Risk
Heart Failure Risk Score: Not Applicable
Sepsis
Sepsis Screening
Sepsis Assessment: Sepsis Ruled Out
Sepsis Screen
Sepsis Screen: Sepsis Ruled Out
Date: 07/19/24
Time: 22:31
Course
Orders/Labs/Results
Orders:
Orders
07/19/24 18:26
BNP [NT-proBNP] Urgent
Complete Blood Count/With Diff Urgent
Comprehensive Metabolic Panel Urgent
Lactic Acid Urgent
Troponin I Urgent
Blood Culture Urgent
TOMMY Source: Blood/Venous
Specimen Description:
07/19/24 19:22
CR Chest - 2 Views Urgent
Comment:
Reason For Exam: copd fevers rales pneumonia?
07/19/24 19:47
COVID-19 Antigen Urgent
Source: Nasal Swab
Influenza A+B Rapid Molecular Urgent
TOMMY Source: Nasal Swab
Specimen Description:
07/19/24 22:11
Azithromycin [Zithromax] 500 mg PO NOW STA
Doxycycline [Vibramycin] 100 mg PO NOW STA
Abnormal Lab Results
07/19/24
18:26
WBC 15.8 H 10^3/uL
(4.8-10.8)
MCHC 32.0 L g/dL
(33.0-37.0)
Abs Immat Gran (auto) 0.1 H 10^3/uL
(0-0.05)
Absolute Neuts (auto) 13.7 H 10^3/uL
(1.4-6.5)
Absolute Lymphs (auto) 1.1 L 10^3/uL
(1.2-3.4)
Neutrophils % 86.7 H %
(42.2-75.2)
Lymphocytes % 6.9 L %
(20.5-51.1)
Chloride 93 L mmol/L
(98-107)
Carbon Dioxide 34 H mmol/L
(22-30)
Creatinine 0.5 L mg/dL
(0.6-1.0)
Glucose 183 H mg/dl
(70-99)
07/19/24 18:26
07/19/24 18:26
Vital Signs
Initial and Last Documented VS:
Initial Vital Signs
Temp Pulse Resp Pulse Ox
37.3 C 121 24 86
07/19/24 18:05 07/19/24 18:05 07/19/24 18:05 07/19/24 18:05
Last Documented Vital Signs
Temp Pulse Resp BP Pulse Ox
37.3 C 89 17 116/77 97
07/19/24 18:09 07/19/24 22:15 07/19/24 22:15 07/19/24 22:00 07/19/24 22:15
*Critical Care Note
Total Time (30-74mins, 75-104mins- exclusive of procedures): Not Applicable
ED Attending Note
-
Portions of this chart may have been created with voice recognition software.� Occasional wrong word or��sound alike� substitutions may have occurred due to the inherent limitations of voice recognition software.
Discharge Plan
Departure
Patient Disposition: Home (Routine Discharge)
Date of Disposition: 07/19/24
Time of Disposition: 22:12
Patient with high blood pressure during this ER visit?: Yes
Discharge Problem:
Pneumonia
Instructions: Pneumonia in adults, BLOOD PRESSURE
Prescriptions:
New
azithromycin 250 mg tablet
250 mg PO DAILY 4 Days Qty: 4 0RF
doxycycline hyclate 100 mg tablet
100 mg PO BID Qty: 14 0RF
No Action
duloxetine [Cymbalta] 20 mg Capsule,Delayed Release(Dr/Ec)
20 mg PO QPM
duloxetine [Cymbalta] 30 mg Capsule,Delayed Release(Dr/Ec)
30 mg PO DAILY
duloxetine [Cymbalta] 30 mg Capsule,Delayed Release(Dr/Ec)
30 mg PO QPM
oxycodone [OxyContin] 40 mg Tablet,Oral Only,Ext.Rel.12 Hr
40 mg PO QID@06,12,18,00
albuterol sulfate 90 mcg/actuation Hfa Aerosol Inhaler
1 puff inhalation R Q4HPRN PRN (Reason: SOB/wheeze) Qty: 8.5 0RF
Spiriva Respimat 2.5 mcg/actuation Mist
2 puff inhalation R Q4HPRN PRN (Reason: SOB/wheeze) Qty: 4 0RF
esomeprazole magnesium [Nexium] 20 mg Capsule,Delayed Release(Dr/Ec)
20 mg PO DAILY
clonazepam 0.5 mg Tablet
0.25 mg PO QID@06,12,18,00 PRN (Reason: anxiety) Qty: 10 0RF
cholecalciferol (vitamin D3) [Vitamin D3] 50 mcg (2,000 unit) capsule
50 mcg PO DAILY Qty: 30 2RF
Referrals:
Sandie Rm MD [Family Provider] -
Activity Restrictions/Additional Instructions:
White blood cell count is high. Temperature here was okay. Lactic acid is top normal at 1.9. Cardiac blood work and test for heart failure is negative. COVID and flu test are negative. Given the abnormal lung exam, I recommend antibiotics.
Return here if worse or other concerns.
Interventions
Interventions:
*Risk Screen - Suicide Last Done: 07/19/24 18:42
*General Assessment Last Done: 07/19/24 18:42
*Neglect/Abuse Screening Last Done: 07/19/24 18:42
*ED COVID-19 Vaccine History Last Done: 07/19/24 18:42
ED- Cardiac Assessment Last Done: 07/19/24 18:42
ED- Neurological Assessment Last Done: 07/19/24 18:42
ED- Pulmonary Assessment Last Done: 07/19/24 18:42
ED-Skin Assessment Last Done: 07/19/24 18:42
Discharge Date and Time
Print Language: [place]
[2024-07-19 20:00] VITALS: BP 118/62
[2024-07-19 20:17] LABS: COVID-19 Antigen Negative (Negative)
[2024-07-19 21:07] VITALS: BP 107/65
[2024-07-19 22:00] VITALS: BP 116/77
[2024-07-19] MEDS: VIBRAMYCIN 100 MG PO (22:15)
[2024-07-19] MEDS: ZITHROMAX 500 MG PO (22:15)
== END 2024-07-19 22:45 | disposition home or self-care (01) ==
LOC: EMR 17:59
PROVIDERS: Emergency Medicine; EMERGENCY PHYSICIAN Emergency Medicine; FAMILY PHYSICIAN Hospitalist
DX: J18.9 Pneumonia, unspecified organism (principal); R03.0 Elevated blood-pressure reading, without diagnosis of hypertension; J44.9 Chronic obstructive pulmonary disease, unspecified; Z11.52 Encounter for screening for COVID-19
CPT/HCPCS: 99284; 71046; 80053; 83605; 83880; 84484; 85025; 87040; 87502; 87811

== ENCOUNTER 2024-10-08 21:51 | Inpatient (IN) | payer OTHER, MEDICARE, SELFPAY ==
[2024-10-08] VITALS (9 sets, daily range): BP systolic 120–153; BP diastolic 55–79; BMI 20.8
[2024-10-08 14:20] LABS: % Basophils 0.5 % (0-2); % Immature Granulocytes 0.5 % (0-0.5); % Monocytes 7.6 % (1.7-9.3); % Neutrophils 75.4 % (42.2-75.2); Absolute Eosinophils 0.2 10^3/uL (0-0.7); Absolute Lymphocytes 0.7 10^3/uL (1.2-3.4); Absolute Monocytes 0.5 10^3/uL (0.1-0.6); Absolute Neutrophils 4.6 10^3/uL (1.4-6.5); Hematocrit 35.8 % (37.0-47.0); Hemoglobin 11.4 g/dL (12.0-16.0); Mean Corp Hgb Conc. 31.8 g/dL (33.0-37.0); Mean Corpuscular Hgb 28.7 pg (27.0-31.0); Mean Corpuscular Volume 90.2 fL (81.0-99.0); Mean Platelet Volume 9.8 fL (7.4-10.4); Nucleated Red Blood Cells % 0 %; Platelet Count 226 10^3/uL (130-400); Red Blood Cell Count 3.97 10^6/uL (4.20-5.40); Red Cell Dist. Width 13.4 % (11.5-14.5); White Blood Cell Count 6.1 10^3/uL (4.8-10.8)
[2024-10-08 14:54] LABS: ALT (SGPT) 58 U/L (0-35); AST (SGOT) 39 U/L (14-36); Albumin 3.8 g/dl (3.5-5.0); Alkaline Phosphatase 289 U/L (38-126); Blood Urea Nitrogen 9 mg/dl (7-17); Calcium 8.6 mg/dl (8.4-10.2); Carbon Dioxide 35 mmol/L (22-30); Chloride 92 mmol/L (98-107); Glucose 145 mg/dl (70-99); Potassium 3.7 mmol/L (3.5-5.1); Sodium 139 mmol/L (135-145); Total Bilirubin 1.7 mg/dl (0.2-1.3); Total Protein 7.1 g/dl (6.3-8.2); eGFR > 60.00
[2024-10-08 15:08] LABS: Lipase < 10 U/L (23-300)
--- NOTE | 2024-10-08 16:14 | ED.GENMED ---
History of Present Illness
General
Chief Complaint: Abdominal Pain
Source: patient
Exam Limitations: none
Time Seen by Provider: 10/08/24 16:12
Nursing documentation reviewed up to this point in time: agreed with
History of Present Illness
History of Present Illness:
Patient is a 74-year-old female presenting with upper abdominal pain and nausea x 5 days. She reports a constant pain in her right upper quadrant and a bloating sensation. She states her stools have been light in color, almost carlos colored. Her
urine has been dark. She reports intermittent nausea although denies any vomiting. She has not had any fever or diarrhea. Patient denies any chest pain or shortness of breath.
She denies any anorexia. Patient denies any hemoptysis. No hematochezia or melena.
Patient has had a history of 2 although denies any other abdominal surgeries
Past History
Past History
ED Past Medical History: Other (CVA/intracranial hemorrhage, post-CVA neuropathic pain)
Social History
Living: with family
Review of Systems
Review of Systems
Allergies reviewed?: Yes
All Other Systems: ROS reviewed and negative except as documented in HPI and ROS
Phy Exam
Physical Exam
Physical Exam:
Vitals: Hypertensive, otherwise vital signs stable. Afebrile
General: Patient is well appearing, no acute distress. Nontoxic appearing
Skin: Warm and dry, no rashes or lesions
Head: Normocephalic, atraumatic
Eyes: Sclera nonicteric. EOMs intact. No nystagmus.
Throat: Dry mucous membranes. Protecting airway
Neck: Normal ROM, no cervical spine tenderness, no meningismus
Cardiac: Regular rate and rhythm, no murmurs.
Pulm: Normal respiratory effort, no wheezes, rales, rhonchi heard on exam.
Abdomen: Mild distention. Abdomen soft with tenderness in right upper quadrant and epigastric region. No rebound tenderness or guarding. No ecchymoses.
Extremities: No evidence of cyanosis or edema. Palpable DP pulses
Neuro: AAOx3. Grossly intact.
Psychiatric: Normal affect.
Course
Orders/Labs/Results
Orders:
Orders
10/08/24 14:04
EKG [Electrocardiogram (*1)] Urgent
Reason for Study: Abdominal Pain
10/08/24 14:05
EKG- Treatment ONCE
10/08/24 14:14
Complete Blood Count/With Diff Urgent
Comprehensive Metabolic Panel Urgent
Direct Bilirubin Urgent
Comment: ADD ON
Lipase Urgent
10/08/24 Dinner
NPO
Allow oral meds: Yes
Allow clear liquids: No
NPO with Ice Chips: No
10/08/24 16:40
Add On- LAB Urgent
Tests Added?: direct bilirubin
0.9% Sodium Chloride 1000 ml [Nss] 1,000 ml IV BOLUS
10/08/24 16:41
US Abdomen Complete/Upper Urgent
Comment:
Reason For Exam: RUQ pain, bloating, nausea, elevated LFTs
10/08/24 21:04
HYDROmorphone [Dilaudid] 0.25 mg IV NOW STA
Ondansetron Injectable [Zofran] 4 mg IV NOW STA
Pantoprazole [Protonix IV] 40 mg IV NOW STA
10/08/24 21:08
Admit/Transfer Patient As Directed
Co-Sign Provider:
Level of Care: Inpatient admission
Assign to:: Medical/Surgical
Physician / Group: cyndie kirkland
Diagnosis: acute choledolithiasis, cbd dilation
Reason for Hospitalization: acute choledolithiasis, cbd dilation
Expected length of stay greater than two midnights?: Yes
ELOS- Estimated Length of Stay in days: 3
I certify the patient meets the requirements for IP care: Yes
10/08/24 21:09
Code Status As Directed
Resuscitation Status: Full Code
10/08/24 21:10
0.9% Sodium Chloride [Nss (Preservative Free)] 10 ml IV NOW STA
10/08/24 21:13
PRN Pain Medication Management As Directed
May give lesser potent ordered pain med per pt: Yes
preference::
Protocol:: Medication orders for pain may be administered in a
manner that supports deferring to patient preference
when the pt is:
- Requesting an ordered lesser potent pain medication.
Least to most potent pain medications are defined
as: acetaminophen < NSAID < tramadol < opioids
(morphine, oxycodone, hydromorphone).
- Requesting a lesser dose of the same medication IF
ORDERED.
- Requesting a less intrusive route of administration
if both routes are prescribed by the provider (PO <
IV).
10/08/24 22:00
Flush (0.9% Sodium Chloride) [Flush (Nss)] See Dose Instructions IV PER PROTOCOL
10/08/24 22:55
0.9% Sodium Chloride 1000 ml [Nss] 1,000 ml IV 60 mls/hr
Albuterol [ProAIR HFA INHALER] 1 puff INH R Q4HPRN PRN
Ondansetron Injectable [Zofran] 4 mg IV Q6HPRN PRN
10/08/24 22:55
Activity As Directed
Activity Level: With Assistance
Comment: Needs assist of 1 person on right side
Intake/ Output As Directed
Frequency: Per unit guidelines
Vital Signs As Directed
Frequency: Per unit guidelines
O2 Therapy [RESP] Routine
Nasal Cannula Liter Flow: 2 LPM
Titrate/Wean O2 to maintain O2 sat greater than (%): 92
Special Instructions: Patient 2 L nasal cannula dependent
Pulse Ox/spot Check [RESP] Routine
Quantity: 1
Pt Eval And Treat Routine
Treatment: Needs assist of person right side is unable to use walker
Activity Level: With Assistance
DX Deep Vein Thrombosis Video Routine
10/09/24 00:00
Clonazepam [Klonopin] 0.25 mg PO QID@06,12,18,00 PRN
Oxycodone Controlled Release [Oxycontin (Controlled Release)] 40 mg PO QID@06,12,18,00
10/09/24 06:00
Cardiovascular Evaluation IN AM
Complete Blood Count/With Diff IN AM
Comprehensive Metabolic Panel IN AM
MRI Abdomen [MR Abdomen With Contrast] IN AM
Comment:
Reason For Exam: cbd dilation
OK for patient to be off Cardiac Monitoring for MRI: Yes
Recent pill cam endoscopy?: No
Pacemaker/Defibrillator?: No
Mrcp Without MR [MR Mrcp Without] IN AM
Comment:
Reason For Exam: cbd dilation
OK for patient to be off Cardiac Monitoring for MRI: Yes
Recent pill cam endoscopy?: No
Pacemaker/Defibrillator?: No
10/09/24 08:00
Duloxetine Delayed Release [Cymbalta Delayed Release] 30 mg PO DAILY
Heparin 5,000 units SC Q12
Pantoprazole [Protonix IV] 40 mg IV DAILY
Tiotropium Morrice 2.5 Mcg [Spiriva Respimat 2.5 Mcg] 2 puff INH R DAILY
10/09/24 18:00
Duloxetine Delayed Release [Cymbalta Delayed Release] 20 mg PO QPM
Duloxetine Delayed Release [Cymbalta Delayed Release] 30 mg PO QPM
10/10/24 06:00
Complete Blood Count/With Diff IN AM
Comprehensive Metabolic Panel IN AM
10/11/24 06:00
Complete Blood Count/With Diff IN AM
Comprehensive Metabolic Panel IN AM
Abnormal Lab Results
10/08/24
14:14
RBC 3.97 L 10^6/uL
(4.20-5.40)
Hgb 11.4 L g/dL
(12.0-16.0)
Hct 35.8 L %
(37.0-47.0)
MCHC 31.8 L g/dL
(33.0-37.0)
Absolute Lymphs (auto) 0.7 L 10^3/uL
(1.2-3.4)
Neutrophils % 75.4 H %
(42.2-75.2)
Lymphocytes % 12.0 L %
(20.5-51.1)
Chloride 92 L mmol/L
(98-107)
Carbon Dioxide 35 H mmol/L
(22-30)
Creatinine 0.5 L mg/dL
(0.6-1.0)
Glucose 145 H mg/dl
(70-99)
Total Bilirubin 1.7 H mg/dl
(0.2-1.3)
Direct Bilirubin 1.0 H mg/dl
(0.0-0.4)
AST 39 H U/L
(14-36)
ALT 58 H U/L
(0-35)
Alkaline Phosphatase 289 H U/L
(38-126)
Lipase < 10 L U/L
(23-300)
10/08/24 14:14
10/08/24 14:14
Vital Signs
Initial and Last Documented VS:
Initial Vital Signs
Temp Pulse Resp BP Pulse Ox
98 F 94 16 144/72 94
10/08/24 13:59 10/08/24 13:59 10/08/24 13:59 10/08/24 13:59 10/08/24 13:59
Last Documented Vital Signs
Temp Pulse Resp BP Pulse Ox
97.5 F 96 18 148/69 99
10/08/24 22:59 10/08/24 22:59 10/08/24 22:59 10/08/24 22:59 10/08/24 22:59
MDM/Problems Addressed
Differential Diagnosis Includes:
Not limited to: Biliary colic, acute cholecystitis, choledocholithiasis, pancreatitis, GERD, malignancy, etc.
MDM/Problems Addressed:
74 year-old female with five days of upper abdominal pain associated with nausea and bloating. Also notes pale stools. No fevers, chills, or vomiting. Vitals stable. Physical exam as above. Patient has mild abdominal distention although abdomen is
soft. Tender in RUQ. No rash or ecchymosis. Cardio/pulmonary assessment unremarkable. Differential would include biliary etiologies including biliary colic, acute cholecystitis, or acute choledocholithiasis. Other considerations include
pancreatitis. Basic labs initiated in triage reviewed. No leukocytosis on CBC. Chemistry significant for elevation in total bilirubin and transaminitis in an obstructed pattern. Lipase undetectable. Will check UA and direct bili. Will obtain
abdominal ultrasound. Will give IV fluids and reassess. Patient declined analgesia at this time.
Update: Direct bili elevated consistent with possible obstructive pattern. Ultrasound shows cholelithiasis with dilated CBD concerning for choledocholithiasis. Low suspicion for acute cystitis as patient is afebrile w/ no leukocytosis. Patient will
require admission to hospital for MRCP, G.I./general surgery consult. Patient accepted to hospitalist service in stable condition.
Chronic conditions affecting care:
N/A
Acute Exacerbation and/or Progression of Chronic Illness:
N/A
*Radiology
Radiology exam reviewed: radiology read reviewed
*Pulse Oximetry
Patient hypoxic: no
*EKG
Interpreted by ED Provider?: NA
*Security Supervisor Interpretation
Rate: Security Supervisor- N/A
*Critical Care Note
Total Time (30-74mins, 75-104mins- exclusive of procedures): Not Applicable
Patient Management
Discussion with other providers: Hospitalist
Escalation/DeEscalation of care consider admission/obs:
Admit for MRCP / GI consult
ED Attending Note
-
Portions of this chart may have been created with voice recognition software.� Occasional wrong word or��sound alike� substitutions may have occurred due to the inherent limitations of voice recognition software.
Discharge Plan
Departure
Patient Disposition: Admit
Date of Disposition: 10/08/24
Time of Disposition: 20:04
Presentation/result/management discussed w/ accepting MD/DO: Hospitalist
Discharge Problem:
Cholelithiasis, Elevated LFTs, Hyperbilirubinemia
Interventions
Interventions:
*Risk Screen - Suicide Last Done: 10/08/24 22:40
*General Assessment Last Done: 10/08/24 16:25
*Neglect/Abuse Screening Last Done: 10/08/24 13:59
*ED- Fall Risk Assessment Last Done: 10/08/24 16:25
*ED COVID-19 Vaccine History Last Done: 10/08/24 22:40
*Nursing Disposition Last Done: 10/08/24 22:22
OH-Qbgchi-Bblatpkvsf Assessment Last Done: 10/08/24 21:19
Discharge Date and Time
Discharge Date/Time: 10/08/24 22:22
[2024-10-08] MEDS: NSS 1000 IV ×2 (16:52→23:08)
--- NOTE | 2024-10-08 20:07 | HPS.HSE ---
Family Physician
-
Family Physician: Sandie Rm MD
Chief Complaint
-
Right upper quadrant abdominal pain with nausea, mario colored stools, dark urine x 5 days
History of Present Illness
74-year-old female complaining of upper abdominal pain with nausea x 5 days along with a bloating sensation, but no vomiting. She also reports mario colored stools and dark urine x 5 days. She also complains of pain after eating over the past 2 days
along with dyspepsia and nausea. She denies fever, chills, headache, sore throat, chest pain, palpitations, cough, shortness of breath, vomiting, diarrhea, urinary symptoms. She has past medical history of CVA/intracranial hemorrhage 2006, post
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
Medical History
Past Medical History
Past Medical History: Reports Other
Additional Past Medical History:
CVA/intracranial hemorrhage miguelina 2006
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
Chronic ambulatory dysfunction due to right hemiparesis
Anxiety
GERD
stress urinary incontinence
Past Surgical History: Reports Other
Additional Past Surgical History:
section 1984, 1986
Lumpectomy benign years ago under local anesthesia
Social History
Tobacco: Former Smoker (Quit 40 years ago smoked approximately 15 years)
Alcohol: None
Drug: None
Personal:
Living: With Family ( Miguel A)
Employment: Retired (Retail Route Supervisor)
Family History
Family History: Other (Mother history of CABG, COPD and issues with anesthesia coming off ventilator)
Allergies / Home Medications
Allergies reflects when Allergies were last updated in [facility].
Home Medications with original date entered in [facility] [employer]
Allergy/Medication List:
Allergies
Allergy/AdvReac Type Severity Reaction Status Date / Time
adrenal cortex (porcine) Allergy Unknown Verified 10/08/24 13:58
erythromycin base Allergy Unknown Verified 10/08/24 13:58
fluconazole Allergy Unknown Verified 10/08/24 13:58
penicillin G Allergy Unknown Verified 10/08/24 13:58
Penicillins Allergy Unknown Verified 10/08/24 13:58
prednisone Allergy Unknown Verified 10/08/24 13:58
[id number] - Not Allergy Unknown Uncoded 10/08/24 13:58
Converted 91. See Text.
Home Medications
duloxetine 20 mg capsule,delayed release (Cymbalta) 20 mg PO QPM Mental Health/Anxiety 06/16/24
duloxetine 30 mg capsule,delayed release (Cymbalta) 30 mg PO DAILY Mental Health/Anxiety 06/16/24
duloxetine 30 mg capsule,delayed release (Cymbalta) 30 mg PO QPM Mental Health/Anxiety 06/16/24
oxycodone 40 mg tablet,crush resistant,extended release 12 hr (OxyContin) 40 mg PO QID@06,12,18,00 Pain 06/16/24
albuterol sulfate 90 mcg/actuation aerosol inhaler 1 puff inhalation R Q4HPRN PRN SOB/wheeze #8.5 grams 06/20/24
esomeprazole magnesium 20 mg capsule,delayed release (Nexium) 20 mg PO DAILY Gastrointestinal Issue 06/28/24
cholecalciferol (vitamin D3) 50 mcg (2,000 unit) capsule (Vitamin D3) 50 mcg PO DAILY #30 caps 07/02/24
clonazepam 0.5 mg tablet 0.25 mg (1/2 x 0.5 mg) PO QID@06,12,18,00 PRN anxiety #10 tabs 07/02/24
tiotropium bromide 2.5 mcg/actuation mist for inhalation (Spiriva Respimat) 2 puff inhalation R DAILY 10/08/24
Review of Systems
-
History Source: Patient and Family ( Miguel A at bedside)
A 12 point ROS was completed and negative except as noted: Yes
Constitutional: Denies Fever, Fatigue or Chills
EENT: Denies Sore Throat or Runny Nose
Respiratory: Denies Cough or Trouble Breathing
Cardiac: Denies Chest Pain, Diaphoresis, Palpitations or Syncope
Abdomen/GI: Reports Abdominal Pain (Epigastric, right upper quadrant), Nausea and Other (Mario colored stools); Denies Vomiting, Diarrhea, Constipated, Bloody Stools or Black Stools
: Reports Dark Urine (Alycia in color); Denies Dysuria, Frequency, Flank Pain, Incontinence or Difficulty Voiding
Musculoskeletal: Denies Joint Pain or Edema
Skin: Denies Itching or Rash
Neurological: Denies Dizzy, Headache or Weakness
Endocrine: Reports No Symptoms
Hematologic/Lymphatic: Reports No Symptoms
Psych: Reports Anxiety
Physical Exam
Vital Signs
Vital Signs
Temp Pulse Resp BP Pulse Ox
98 F 101 22 149/76 98
10/08/24 13:59 10/08/24 18:15 10/08/24 18:15 10/08/24 18:00 10/08/24 17:45
Physical Exam
General: Conversant and Pain; No Fever or Chills
HEENT: NormoCephalic, Anicteric, Moist mucous membranes, PERRLA, [place] Conjunctivae and Oxygen (2 L nasal cannula dependent)
Respiratory: Clear; No Wheezes, Rales or Rhonchi
Cardiac: S1/S2 and Regular Rhythm; No Murmur, Rub or Gallop
Breast: Deferred by me
GI: Soft, Non Distended, Normal Bowel Sounds, Tender (Right upper quadrant/epigastric) and No Hepatosplenomegaly
Rectal: Deferred by Provider
Genito-urinary: Deferred by me
Musculoskeletal: No Clubbing, No Cyanosis and No Edema
Skin: Warm and Dry; No Rash or Jaundice
Neuro: AO x 3, No Motor Deficits, Nonfocal/grossly intact, Cranial Nerves Intact, No Sensory Deficits and Other (Reported right hemiparesis with walking); No Slurred Speech, Facial Droop, Tremors or Sedated
Psych: Anxious (Tearful)
Laboratory Results
-
10/08/24 14:14
10/08/24 14:14
Laboratory Results
Total Bilirubin 1.7 mg/dl (0.2-1.3) H 10/08/24 14:14
AST 39 U/L (14-36) H 10/08/24 14:14
ALT 58 U/L (0-35) H 10/08/24 14:14
Alkaline Phosphatase 289 U/L (38-126) H 10/08/24 14:14
Lipase < 10 U/L (23-300) L 10/08/24 14:14
Data Reviewed
-
Ultrasound: Report Reviewed by me
Lab Data: Labs Reviewed by me
Impression/Plan
-
Impression/plan:
Admit to MedSurg
#Acute cholelithiasis with choledocholithiasis
Mild acute transaminitis
AST 39 ALT 58, alk phos 289, T. bili 1.7
WBC 6.1, afebrile, HR 101
- Consult GI
- Consult general surgery
- N.p.o. Except meds
- MRI/MRCP abdomen
- IV NSS 60 cc an hour
- IV Zofran
IV Dilaudid 0.25 mg now, Protonix 40 mg now, Zofran 4 mg now
-Continue patient's pain regimen OxyContin 40 mg 06,12,18,00, Cymbalta 30 mg at 06, 50 mg 1700
- Follow CBC, CMP
Ultrasound abdomen complete:
1. At least 1 relatively large gallstone seen within the gallbladder with prominent shadowing, gallbladder otherwise limited
2. Common bile duct enlarged at 1.1 cm
#CVA/intracranial hemorrhage miguelina 2006
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
walks with assist of person cannot use walker
--Continue patient's pain regimen OxyContin 40 mg ,,,00, Cymbalta 30 mg at 06, 50 mg 1700
- Patient follows with Dr. Bryan Zhao pain management in [facility]
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
#Bipap Full mask 05/13 with 2 L of oxygen
- follows with Dr lucero Mireles
#GERD
- Patient takes Nexium 40 mg at bedtime will give Protonix 40 mg at bedtime in place
# Chronic anxiety
-Continue Klonopin 0.25 mg 06,,,00
Other PMH:
stress urinary incontinence
Influenza /pneumonia June 2024
DVT prophylaxis
Subcu heparin
Full code per patient with Miguel A at bedside
[2024-10-08] MEDS: ZOFRAN 4 MG IV (21:30)
[2024-10-08] MEDS: NSS (PRESERVATIVE FREE) 10 ML IV (21:32)
[2024-10-08] MEDS: PROTONIX IV 40 MG IV (21:32)
[2024-10-08] MEDS: DILAUDID 0.25 MG IV (21:34)
--- NOTE | 2024-10-08 21:52 | W.PN.UPDATE ---
Update Note
Progress Note Update
This is an addendum to H&P written by Roxy Champion on 10/08/2024.� Patient seen examined independently with NURSING CONSULTANT.
74-year-old female past medical history of atrial tachycardia, intracranial hemorrhage, GERD, chronic pain narcotic dependence, and generalized anxiety disorder, COPD presenting with upper abdominal pain and nausea for 5 days.� Pain in her right
upper quadrant with bloating.� Light-colored stools.� Dark urine.
Vital signs normal.
Labs show transaminitis.� Abdominal ultrasound shows at least 1 large gallstone within the gallbladder, enlarged common bile duct of 1.1 cm.
Concern for acute choledocholithiasis.
N.p.o., MRCP, GI consulted. General surgery consulted.
[2024-10-08] MEDS: OXYCONTIN (CONTROLLED RELEASE) 40 MG PO (23:28)
[2024-10-08] MEDS: KLONOPIN 0.25 MG PO (23:33)
[2024-10-09 00:05] VITALS: PULSE 2
[2024-10-09 03:42] VITALS: PULSE 2
--- NOTE | 2024-10-09 04:45 | PTCARENOTE ---
10/[address] [facility] from ED. Pt t/f to bed from stretcher. Admission assessment completed, reviewed POC and NPO status with pt. Inst professional services consultant wali. Purewick in place from ED, pt refusing to have it removed. pt states she will have her
bring up her personal depends to wear in the hospital tomorrow but until then she wants to utilize the purewick. Reviewed infection risks and skin integrity risks with use of purewick. pt verb understanding.
[2024-10-09] MEDS: KLONOPIN 0.25 MG PO ×4 (06:16→23:33)
[2024-10-09] MEDS: OXYCONTIN (CONTROLLED RELEASE) 40 MG PO ×4 (06:17→23:33)
[2024-10-09 06:34] LABS: % Basophils 0.5 % (0-2); % Eosinophils 3.7 % (0-6); % Immature Granulocytes 0.7 % (0-0.5); % Monocytes 10.9 % (1.7-9.3); % Neutrophils 70.2 % (42.2-75.2); Absolute Eosinophils 0.3 10^3/uL (0-0.7); Absolute Immature Granulocytes 0.1 10^3/uL (0-0.05); Absolute Monocytes 0.8 10^3/uL (0.1-0.6); Absolute Neutrophils 5.2 10^3/uL (1.4-6.5); Hematocrit 32.7 % (37.0-47.0); Hemoglobin 10.3 g/dL (12.0-16.0); Mean Corp Hgb Conc. 31.5 g/dL (33.0-37.0); Mean Corpuscular Hgb 28.3 pg (27.0-31.0); Mean Corpuscular Volume 89.8 fL (81.0-99.0); Mean Platelet Volume 10.2 fL (7.4-10.4); Nucleated Red Blood Cells % 0 %; Platelet Count 205 10^3/uL (130-400); Red Blood Cell Count 3.64 10^6/uL (4.20-5.40); Red Cell Dist. Width 13.4 % (11.5-14.5); White Blood Cell Count 7.3 10^3/uL (4.8-10.8)
[2024-10-09 07:11] LABS: ALT (SGPT) 44 U/L (0-35); AST (SGOT) 32 U/L (14-36); Albumin 2.9 g/dl (3.5-5.0); Alkaline Phosphatase 229 U/L (38-126); Blood Urea Nitrogen 6 mg/dl (7-17); Calcium 8.3 mg/dl (8.4-10.2); Carbon Dioxide 37 mmol/L (22-30); Chloride 98 mmol/L (98-107); Estimated Creatinine Clearance 81 ml/min; Glucose 105 mg/dl (70-99); HDL Cholesterol 14 mg/dl; LDL Cholesterol, Calculated 109 mg/dl; Potassium 4.2 mmol/L (3.5-5.1); Sodium 141 mmol/L (135-145); Total Bilirubin 1.2 mg/dl (0.2-1.3); Total Cholesterol 155 mg/dl (50-199); Total Protein 5.8 g/dl (6.3-8.2); Triglyceride 164 mg/dl (10-149); Very Low Density Lipoprotein 32 mg/dl (0-30); eGFR > 60.00
[2024-10-09 07:40] VITALS: BP 133/69
[2024-10-09] MEDS: PROTONIX IV 40 MG IV (08:08)
[2024-10-09] MEDS: NSS (PRESERVATIVE FREE) 10 ML IV (08:08)
[2024-10-09] MEDS: CYMBALTA DELAYED RELEASE 30 MG PO ×2 (08:08→17:16)
[2024-10-09] MEDS: HEPARIN 5000 UNITS SC ×2 (08:08→20:23)
[2024-10-09] MEDS: SPIRIVA RESPIMAT 2.5 MCG INH (08:50)
--- NOTE | 2024-10-09 11:17 | CON.GI ---
Consultation
-
Date/Time Consultation Requested: 10/09/2024
Date/Time Consultation Performed: 10/09/2024
Requesting Provider: Roxy Champion
Performing Provider: norma
Reason for Consultation: Right upper quadrant pain
Medical History
Chief Complaint / HPI
Chief Complaint: Abdominal pain
History of Present Illness:
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
epigastric pain radiating around the right upper quadrant that began on Friday. It has waxed and waned but is now constant with intermittent nausea without vomiting. Patient states the pain is squeezing sharp and crampy and last hours and it is
exacerbated by food. She has had dark urine throughout the week. Had good bowel movements yesterday and has been getting more MiraLAX than normal because her upped her pain medication at home.
She is hemodynamically stable. No leukocytosis, no fever.
Total bilirubin 1.2, AST 32, ALT 44, alkaline phosphatase 229, triglycerides 164, lipase less than 10.
MRI with MRCP shows cholelithiasis with cholecystitis with gallbladder wall thickening and pericholecystic edema as well as common bile duct of 1.1 with multiple filling defects in the common bile duct consistent with choledocholithiasis the largest
being 5 to 6 mm. She also has pancreatic divisum.
Her , Miguel A is at bedside who takes good care of her at home.
Past Medical History
Past Medical History: Other (CVA, chronic opiates from neuropathic pain poststroke, right hemiparesis, anxiety, GERD, urinary incontinence)
Past Surgical History: Other ( x 2)
Social History
Tobacco: Former Smoker (Quit 40 years ago)
Alcohol: None
Drug: None
Personal:
Living: With Family
Employment: Retired
Family History
Family History: Reviewed & Not Pertinent and Other (Mother with CAD and COPD)
Allergies / Home Medications
Allergy/AdvReac Type Severity Reaction Status Date / Time
adrenal cortex (porcine) Allergy Unknown Verified 10/08/24 13:58
erythromycin base Allergy Unknown Verified 10/08/24 13:58
fluconazole Allergy Unknown Verified 10/08/24 13:58
penicillin G Allergy Unknown Verified 10/08/24 13:58
Penicillins Allergy Unknown Verified 10/08/24 13:58
prednisone Allergy Unknown Verified 10/08/24 13:58
[id number] - Not Allergy Unknown Uncoded 10/08/24 13:58
Converted 91. See Text.
�Medication �Instructions �Recorded
duloxetine 20 mg capsule,delayed 20 mg PO QPM Mental Health/Anxiety 06/16/24
release (Cymbalta)
duloxetine 30 mg capsule,delayed 30 mg PO DAILY Mental 06/16/24
release (Cymbalta) Health/Anxiety
duloxetine 30 mg capsule,delayed 30 mg PO QPM Mental Health/Anxiety 06/16/24
release (Cymbalta)
oxycodone 40 mg tablet,crush 40 mg PO QID@06,12,18,00 Pain 06/16/24
resistant,extended release 12 hr
(OxyContin)
albuterol sulfate 90 mcg/actuation 1 puff inhalation R Q4HPRN PRN 06/20/24
aerosol inhaler SOB/wheeze #8.5 grams
esomeprazole magnesium 20 mg 20 mg PO DAILY Gastrointestinal 06/28/24
capsule,delayed release (Nexium) Issue
cholecalciferol (vitamin D3) 50 50 mcg PO DAILY #30 caps 07/02/24
mcg (2,000 unit) capsule (Vitamin
D3)
clonazepam 0.5 mg tablet 0.25 mg (1/2 x 0.5 mg) PO 07/02/24
QID@06,12,18,00 PRN anxiety #10
tabs
tiotropium bromide 2.5 2 puff inhalation R DAILY 10/08/24
mcg/actuation mist for inhalation
(Spiriva Respimat)
Review of Systems
-
History Source: Patient and Family
All other systems: A 12 pt ROS was Negative except as stated above in HPI
Vital Signs
Temp Pulse Resp BP Pulse Ox
97.9 F 90 18 133/69 95
10/09/24 07:40 10/09/24 07:40 10/09/24 07:40 10/09/24 07:40 10/09/24 08:10
Physical Exam
Exam
General: Other (Older than stated age)
HEENT: Anicteric (Mildly icteric)
Respiratory: Clear
Cardiac: Regular Rhythm
GI: Soft, Normal Bowel Sounds and Tender
Neuro: AO x 3
Psych: Calm
Results
WBC 7.3 10^3/uL (4.8-10.8) 10/09/24 06:08
Hgb 10.3 g/dL (12.0-16.0) L 10/09/24 06:08
Hct 32.7 % (37.0-47.0) L 10/09/24 06:08
MCV 89.8 fL (81.0-99.0) 10/09/24 06:08
Plt Count 205 10^3/uL (130-400) 10/09/24 06:08
Absolute Neuts (auto) 5.2 10^3/uL (1.4-6.5) 10/09/24 06:08
Sodium 141 mmol/L (135-145) 10/09/24 06:08
Potassium 4.2 mmol/L (3.5-5.1) 10/09/24 06:08
Chloride 98 mmol/L (98-107) 10/09/24 06:08
Carbon Dioxide 37 mmol/L (22-30) H 10/09/24 06:08
BUN 6 mg/dl (7-17) L 10/09/24 06:08
Creatinine 0.5 mg/dL (0.6-1.0) L 10/09/24 06:08
Calcium 8.3 mg/dl (8.4-10.2) L 10/09/24 06:08
Total Bilirubin 1.2 mg/dl (0.2-1.3) 10/09/24 06:08
AST 32 U/L (14-36) 10/09/24 06:08
ALT 44 U/L (0-35) H 10/09/24 06:08
Alkaline Phosphatase 229 U/L (38-126) H 10/09/24 06:08
Lipase < 10 U/L (23-300) L 10/08/24 14:14
Diagnostic Image Results:
10/09/2024, MRI with and without contrast with MRCP. Distended intra and extrahepatic ducts, common bile duct 1.1 cm with multiple stones throughout the common bile duct including a 5 to 6 mm being the largest. Pancreas shows pancreatic divisum with
diffuse atrophy. Gallbladder shows stones with gallbladder wall thickening and mild pericholecystic edema.
10/08/2024, abdominal ultrasound large gallstones in the gallbladder, negative Neal sign, enlarged bile duct at 1.1 cm with no significant intrahepatic ductal dilatation. Technically difficult study.
Prior GI Procedures: None here
Assessment / Plan
-
Lashawn is a 74-year-old female with history of right-sided hemiplegia after intracranial hemorrhage, atrial tachycardia, GERD, on chronic narcotics, COPD on 2 L of home O2 and BiPAP at night here with upper abdominal pain and nausea for 5 days with
change in color of stools as well as dark urine found to have cholecystitis and choledocholithiasis on MRI with mildly elevated bilirubin and liver chemistries with an alkaline phosphatase 289, ALT 58, total bilirubin 1.7
# Abnormal liver chemistries in the setting of abdominal pain and nausea
--Cholecystitis + choledocholithiasis
-- Total bilirubin improved from yesterday 1.7-1.2, mild hepatocellular injury with elevated alkaline phosphatase -- In the setting of dilated common bile duct which could be from narcotics versus obstruction would proceed MRCP -MRCP revealed
cholelithiasis with suspected cholecystitis as well as choledocholithiasis with multiple distal common bile duct calculi with dilated intra and extrahepatic ducts. CBD is 1.1 cm. Largest calculi are 5 to 6 mm. Patient also has pancreatic divisum
--No fever, no leukocytosis. Not on antibiotics -started Levaquin and Flagyl
-- Patient will need ERCP for stone removal and cholecystectomy per surgery
Data Reviewed
-
Ultrasound: Report Reviewed by me
MRI: Image Personally Visualized and interpreted and Report Reviewed by me
-
-
Thank you for consultation and allowing me to participate in the patient's care. Please call the telephone directory distributor driver GI physician during the after hours with any questions or concerns.
--- NOTE | 2024-10-09 11:53 | CON.GS ---
Addendum entered and electronically signed by Maxx Pablo MD 10/09/24 14:55:
I saw and examined the patient.
The Small Animal Caretaker's note was reviewed and I agree with the note.
Comment: Pain improved. Very mild ttp RUQ. Pale stools and dark urine reported. On imaging a 3cm stone in the gb is noted, ductal dilation noted as well. For MRCP today
Original Note:
Consultation
-
Date/Time Consultation Performed: 10/09/24 0850
Medical History
-
Chief Complaint: RUQ pain
History of Present Illness:
Ms Simmons is a 74 yo female with a h/o COPD on 2L home o2 with BIPAP at [facility], CVA/ICH 2006 with right hemiparesis, chronic opioid use d/t chronic neuropathic pain s/p CVA, bedbound at home and x2 who presented through the ED with epigastric
pain into the RUQ which began approximately 6 days ago with bloating. Pain has persisted but the severity has waxed and waned with intermittent nausea. She does believe that pain was exacerbated with food. She and her noted acholic stools as
well as dark urine throughout the week. They note no jaundice or scleral icterus. She feels that her pain is much better today although still present with some mild tenderness to the RUQ on exam.
Past Medical History
Past Medical History: CVA (post CVA neuropathic pain right arm right leg on chronic oral opiates, bedbound)
Past Surgical History: (x2)
Social History
Tobacco: Former Smoker
Personal:
Living: With Family
Family History
Family History: Reviewed & Not Pertinent
Allergies / Home Medications
Allergy/AdvReac Type Severity Reaction Status Date / Time
adrenal cortex (porcine) Allergy Unknown Verified 10/08/24 13:58
erythromycin base Allergy Unknown Verified 10/08/24 13:58
fluconazole Allergy Unknown Verified 10/08/24 13:58
penicillin G Allergy Unknown Verified 10/08/24 13:58
Penicillins Allergy Unknown Verified 10/08/24 13:58
prednisone Allergy Unknown Verified 10/08/24 13:58
[id number] - Not Allergy Unknown Uncoded 10/08/24 13:58
Converted 91. See Text.
�Medication �Instructions �Recorded �Confirmed �Type
duloxetine 20 mg capsule,delayed 20 mg PO QPM Mental Health/Anxiety 06/16/24 10/08/24 History
release (Cymbalta)
duloxetine 30 mg capsule,delayed 30 mg PO DAILY Mental 06/16/24 10/08/24 History
release (Cymbalta) Health/Anxiety
duloxetine 30 mg capsule,delayed 30 mg PO QPM Mental Health/Anxiety 06/16/24 10/08/24 History
release (Cymbalta)
oxycodone 40 mg tablet,crush 40 mg PO QID@06,12,18,00 Pain 06/16/24 10/08/24 History
resistant,extended release 12 hr
(OxyContin)
albuterol sulfate 90 mcg/actuation 1 puff inhalation R Q4HPRN PRN 06/20/24 10/08/24 Rx
aerosol inhaler SOB/wheeze #8.5 grams
esomeprazole magnesium 20 mg 20 mg PO DAILY Gastrointestinal 06/28/24 10/08/24 History
capsule,delayed release (Nexium) Issue
cholecalciferol (vitamin D3) 50 50 mcg PO DAILY #30 caps 07/02/24 10/08/24 Rx
mcg (2,000 unit) capsule (Vitamin
D3)
clonazepam 0.5 mg tablet 0.25 mg (1/2 x 0.5 mg) PO 07/02/24 10/08/24 Rx
QID@06,12,18,00 PRN anxiety #10
tabs
tiotropium bromide 2.5 2 puff inhalation R DAILY 10/08/24 10/08/24 History
mcg/actuation mist for inhalation
(Spiriva Respimat)
Review of Systems
-
History Source: Patient and Family
All other systems: Negative unless noted
A 10 point review of systems was completed, and was negative except as per HPI.
Physical Exam
Vital Signs
Temp Pulse Resp BP Pulse Ox
97.9 F 90 18 133/69 95
10/09/24 07:40 10/09/24 07:40 10/09/24 07:40 10/09/24 07:40 10/09/24 08:10
10/08/24 10/09/24 10/10/24
06:59 06:59 06:59
Actual Weight 62.142 kg
Body Mass Index (BMI) 20.8
Lab Results
10/09/24 06:08
10/09/24 06:08
WBC 7.3 10^3/uL (4.8-10.8) 10/09/24 06:08
Hgb 10.3 g/dL (12.0-16.0) L 10/09/24 06:08
Hct 32.7 % (37.0-47.0) L 10/09/24 06:08
Plt Count 205 10^3/uL (130-400) 10/09/24 06:08
Abs Immat Gran (auto) 0.1 10^3/uL (0-0.05) H 10/09/24 06:08
Neutrophils % 70.2 % (42.2-75.2) 10/09/24 06:08
Physical Exam
General: Well Developed and Well Nourished
HEENT: Anicteric and Moist Mucous Membranes
Respiratory: Non Labored Respirations
GI: Soft, Non Distended and Tender (mild RUQ)
Skin: Warm and Dry; Negative Jaundice
Psych: Calm
Assessment / Plan
-
74 yo female with h/o CVA, COPD on home O2 at 2l presenting with persistent epigastric and RUQ pain since Friday with intermittent nausea, acholic stools and dark brown urine. US imaging with cholelithiasis with a rather large gallstone positioned
near the neck of the gallbladder. No pericholecystic edema/wall thickening on limited US exam. AFVSS. No leukocytosis. Normal total bilirubin with elevated direct bilirubin, ALT mildly elevated as is alk phos. Lipase normal. Some mild tenderness
present on exam. Suspect persistent biliary colic vs choledocholithiasis.
--NPO for MRCP
--Pending MRCP findings may need ERCP, if no choledocholithiasis present will plan lap emilee tentatively tomorrow vs Friday pending OR availability
--Ok for clear liquids after MRI from surgical standpoint
--Analgesics/antiemetics pending
--Gastroenterology consulted to follow with us
--- NOTE | 2024-10-09 14:55 | W.PN.HOSP.TC ---
Today's Communication/Plan
-
based on MRI, await surgical decision on next step
Assessment / Plan
Assessment / Plan
#Acute cholelithiasis with choledocholithiasis
Mild acute transaminitis
AST 39-->32 ALT 58-->44, alk phos 289-->229, T. bili 1.7-->1.2
WBC 6.1, afebrile, HR 101
- Consult GI
- Consult general surgery
- N.p.o. Except meds
- MRI/MRCP abdomen: Cholelithiasis with suspicion for acute cholecystitis in the proper clinical setting.
Choledocholithiasis with multiple distal common bile duct calculi and secondary distention of the biliary system.
Findings suggest pancreatic divisum.
Mild hepatomegaly.
Bibasilar pulmonary parenchymal consolidation, right greater than left, atelectasis versus pneumonia.
- IV NSS 60 cc an hour
- IV Zofran
IV Dilaudid 0.25 mg now, Protonix 40 mg now, Zofran 4 mg now
-Continue patient's pain regimen OxyContin 40 mg 06,12,18,00, Cymbalta 30 mg at 06, 50 mg 1700
- Follow CBC, CMP
Ultrasound abdomen complete:
1. At least 1 relatively large gallstone seen within the gallbladder with prominent shadowing, gallbladder otherwise limited
2. Common bile duct enlarged at 1.1 cm
#CVA/intracranial hemorrhage miguelina 2006
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
walks with assist of person cannot use walker
--Continue patient's pain regimen OxyContin 40 mg 06,12,18,00, Cymbalta 30 mg at 06, 50 mg 1700
- Patient follows with Dr. Bryan Zhoa pain management in [facility]
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
#Bipap Full mask 05/13 with 2 L of oxygen
- follows with Dr lucero Mireles
#GERD
- Patient takes Nexium 40 mg at bedtime will give Protonix 40 mg at bedtime in place
# Chronic anxiety
-Continue Klonopin 0.25 mg 06,12,18,00, dosing adjusted, states pt takes as scheduled, not prn
Other PMH:
stress urinary incontinence
Influenza /pneumonia June 2024
DVT prophylaxis
Subcu heparin
Full code per patient with Miguel A at bedside
Anticipated Discharge: > 48 hours
Subjective/Interval History
-
Date of Service: October 09, 2024
Just back from MRI when seen by me. has some medication questions
Objective Data
-
Labs:
Laboratory Results
10/09/24
06:08
WBC 7.3
Hgb 10.3 L
Hct 32.7 L
Plt Count 205
Sodium 141
Potassium 4.2
Chloride 98
Carbon Dioxide 37 H
BUN 6 L
Creatinine 0.5 L
Glucose 105 H
Calcium 8.3 L
Total Bilirubin 1.2
AST 32
ALT 44 H
Alkaline Phosphatase 229 H
Vital Signs:
Vital Signs
Temp Pulse Resp BP Pulse Ox
97.9 F 90 18 133/69 95
10/09/24 07:40 10/09/24 07:40 10/09/24 07:40 10/09/24 07:40 10/09/24 08:10
I&O
10/08/24 10/09/24 10/10/24
06:59 06:59 06:59
Intake Total 480 / 480
Output Total 600 / 600
Balance -120 / -120
Review of Systems
-
History Source: Patient and Family ( at bedside)
Constitutional: Denies Fever
EENT: Reports No Symptoms Reported
Respiratory: Reports No Symptoms; Denies Trouble Breathing
Cardiac: Reports No Symptoms; Denies Chest Pain
Abdomen/GI: Reports Abdominal Pain (minimal pain RUQ)
Genitourinary: Reports No Symptoms
Musculoskeletal: Reports No Symptoms
Physical Exam
-
General: Well Developed and Other (thin elderly female who appears older than stated age)
HEENT: Normocephalic, Atraumatic and Moist Mucous Membranes
Respiratory: Clear to Auscultation; Negative Wheezes, Rales or Rhonchi
Cardiac: Regular Rhythm and S1/S2
GI: Soft, Nontender, Nondistended and Normal Bowel Sounds
Musculoskeletal: No Clubbing, No Cyanosis and No Edema
Neuro: Awake, Alert and Oriented
[2024-10-09 15:45] VITALS: BP 114/64
[2024-10-09] MEDS: NSS 1000 IV (16:37)
[2024-10-09] MEDS: LEVAQUIN 100 IV (16:39)
[2024-10-09] MEDS: CYMBALTA DELAYED RELEASE 20 MG PO (17:16)
[2024-10-09] MEDS: FLAGYL 500 MG 100 IV (18:01)
[2024-10-09] MEDS: MUCINEX 1200 MG PO (20:23)
[2024-10-09 22:13] VITALS: PULSE 2
[2024-10-09 23:40] VITALS: BP 141/76
[2024-10-10] MEDS: FLAGYL 500 MG 100 IV ×4 (01:08→23:59)
[2024-10-10] MEDS: KLONOPIN 0.25 MG PO ×4 (05:21→23:56)
[2024-10-10] MEDS: OXYCONTIN (CONTROLLED RELEASE) 40 MG PO ×4 (05:22→23:56)
[2024-10-10 06:43] LABS: % Basophils 0.5 % (0-2); % Eosinophils 3.8 % (0-6); % Immature Granulocytes 0.3 % (0-0.5); % Lymphocytes 19.8 % (20.5-51.1); % Monocytes 9.9 % (1.7-9.3); % Neutrophils 65.7 % (42.2-75.2); Absolute Eosinophils 0.2 10^3/uL (0-0.7); Absolute Lymphocytes 1.2 10^3/uL (1.2-3.4); Absolute Monocytes 0.6 10^3/uL (0.1-0.6); Hematocrit 32.7 % (37.0-47.0); Hemoglobin 10.1 g/dL (12.0-16.0); Mean Corp Hgb Conc. 30.9 g/dL (33.0-37.0); Mean Corpuscular Hgb 28.3 pg (27.0-31.0); Mean Corpuscular Volume 91.6 fL (81.0-99.0); Mean Platelet Volume 11.4 fL (7.4-10.4); Nucleated Red Blood Cells % 0 %; Platelet Count 201 10^3/uL (130-400); Red Blood Cell Count 3.57 10^6/uL (4.20-5.40); Red Cell Dist. Width 13.3 % (11.5-14.5); White Blood Cell Count 6.1 10^3/uL (4.8-10.8)
[2024-10-10] MEDS: DILAUDID 0.25 MG IV ×2 (07:19→09:35)
[2024-10-10 07:23] VITALS: BP 135/63
[2024-10-10 08:02] LABS: ALT (SGPT) 37 U/L (0-35); AST (SGOT) 31 U/L (14-36); Alkaline Phosphatase 201 U/L (38-126); Blood Urea Nitrogen 7 mg/dl (7-17); Carbon Dioxide 38 mmol/L (22-30); Chloride 98 mmol/L (98-107); Estimated Creatinine Clearance 81 ml/min; Glucose 112 mg/dl (70-99); Potassium 3.8 mmol/L (3.5-5.1); Sodium 141 mmol/L (135-145); Total Bilirubin 0.9 mg/dl (0.2-1.3); eGFR > 60.00
[2024-10-10] MEDS: SPIRIVA RESPIMAT 2.5 MCG 2 PUFF INH (08:45)
[2024-10-10] MEDS: CYMBALTA DELAYED RELEASE 30 MG PO ×2 (08:47→17:42)
[2024-10-10] MEDS: HEPARIN 5000 UNITS SC ×2 (08:48→20:16)
[2024-10-10] MEDS: MUCINEX 1200 MG PO ×2 (08:48→20:15)
[2024-10-10] MEDS: PROTONIX IV 40 MG IV (08:48)
[2024-10-10] MEDS: NSS (PRESERVATIVE FREE) 10 ML IV (08:48)
--- NOTE | 2024-10-10 10:09 | W.PN.UPDATE ---
Update Note
Progress Note Update
MRCP confirms choledocholithiasis with upstream biliary dilation. GI following for possible ERCP. GS will follow with tentative plan for CCY this admission.
--- NOTE | 2024-10-10 11:00 | W.PN.GI.CBS2 ---
Today's Communication / Plan
-
-- pain control +miralax and NPO after midnight
Assessment / Plan
-
Lashawn is a 74-year-old female with history of right-sided hemiplegia after intracranial hemorrhage, atrial tachycardia, GERD, on chronic narcotics, COPD on 2 L of home O2 and BiPAP at night here with upper abdominal pain and nausea for 5 days with
change in color of stools as well as dark urine found to have cholecystitis and choledocholithiasis on MRI with mildly elevated bilirubin and liver chemistries with an alkaline phosphatase 289, ALT 58, total bilirubin 1.7
# Abnormal liver chemistries in the setting of abdominal pain and nausea
--Cholecystitis + choledocholithiasis on MRI
-- Total bilirubin improved 1.7-1.2--> 0.9, mild hepatocellular injury with elevated alkaline phosphatase -- In the setting of dilated common bile duct which could be from narcotics as well.
-MRCP revealed cholelithiasis with suspected cholecystitis as well as choledocholithiasis with multiple distal common bile duct calculi with dilated intra and extrahepatic ducts. CBD is 1.1 cm. Largest calculi are 5 to 6 mm. Patient also has
pancreatic divisum
--No fever, no leukocytosis. Now on antibiotics -started Levaquin and Flagyl 10/09
-- Patient will need ERCP for stone removal and cholecystectomy per surgery
-- she's on the schedule for tomorrow, however there are multiple cases with a short window so patient and are aware that it may not happen tomorrow
-- discussed with Dr Pablo
-- NPO after midnight
Subjective
Subjective
Date of Service: October 10, 2024
Patient complaining of left back and flank pain. Asking for pain medication [id number]. Not moving her bowels today but did yesterday
Objective
Data Reviewed
Laboratory Data:
Laboratory Results
10/10/24 04:12
10/10/24 07:30
Laboratory Results
Total Bilirubin 0.9 mg/dl (0.2-1.3) 10/10/24 07:30
AST 31 U/L (14-36) 10/10/24 07:30
ALT 37 U/L (0-35) H 10/10/24 07:30
Alkaline Phosphatase 201 U/L (38-126) H 10/10/24 07:30
Lipase < 10 U/L (23-300) L 10/08/24 14:14
Vital Signs and I&O:
Vital Signs
Temp Pulse Resp BP Pulse Ox
98.4 F 71 16 135/63 98
10/10/24 07:23 10/10/24 08:51 10/10/24 08:51 10/10/24 07:23 10/10/24 08:51
I&O
10/09/24 10/10/24 10/11/24
06:59 06:59 06:59
Intake Total 480 / 480 860 / 860 240 / 240
Output Total 600 / 600 600 / 600 850 / 850
Balance -120 / -120 260 / 260 -610 / -610
Physical Exam
Physical Exam
HEENT: Anicteric
GI: Soft and Tender (Tender everywhere you touch her)
[2024-10-10] MEDS: MORPHINE SULFATE 4 MG IV ×3 (12:55→21:15)
[2024-10-10] MEDS: NSS 1000 IV (14:23)
[2024-10-10 15:11] VITALS: BP 127/68
--- NOTE | 2024-10-10 15:15 | W.PN.HOSP.TC ---
Today's Communication/Plan
-
For ERCP and cholecystectomy
Assessment / Plan
Assessment / Plan
#Acute cholelithiasis with choledocholithiasis
Mild acute transaminitis
AST 39-->32 ALT 58-->44-->37, alk phos 289-->229-->201, T. bili 1.7-->1.2-->0.9
WBC 6.1-->7.3-->6.1, afebrile, HR 101
- Consulted GI
- Consulted general surgery
- now on full liquieds
- MRI/MRCP abdomen: Cholelithiasis with suspicion for acute cholecystitis in the proper clinical setting.
Choledocholithiasis with multiple distal common bile duct calculi and secondary distention of the biliary system.
Findings suggest pancreatic divisum.
Mild hepatomegaly.
Bibasilar pulmonary parenchymal consolidation, right greater than left, atelectasis versus pneumonia.
- IV NSS 60 cc an hour
- IV Zofran
IV Morphine 4 mg, Protonix 40 mg, Zofran 4 mg
-Continue patient's pain regimen OxyContin 40 mg 06,12,18,00, Cymbalta 30 mg at 06, 50 mg at 1700
- Follow CBC, CMP
Pt to have ERCP and cholecystectomy (which one first will depend on facility availability)
Ultrasound abdomen complete:
1. At least 1 relatively large gallstone seen within the gallbladder with prominent shadowing, gallbladder otherwise limited
2. Common bile duct enlarged at 1.1 cm
#CVA/intracranial hemorrhage miguelina 2006
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
walks with assist of person cannot use walker
--Continue patient's pain regimen OxyContin 40 mg 06,12,18,00, Cymbalta 30 mg at 06, 50 mg 1700
- Patient follows with Dr. Bryan Zhao pain management in [facility]
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
#Bipap Full mask 05/13 with 2 L of oxygen
- follows with Dr lucero Mireles
#GERD
- Patient takes Nexium 40 mg at bedtime will give Protonix 40 mg at bedtime in place
# Chronic anxiety
-Continue Klonopin 0.25 mg 06,12,18,00, dosing adjusted, states pt takes as scheduled, not prn
Other PMH:
stress urinary incontinence
Influenza /pneumonia June 2024
DVT prophylaxis
Subcu heparin
Full code per patient with Miguel A at bedside
Anticipated Discharge: 24 - 48 hours
Subjective/Interval History
-
Date of Service: October 10, 2024
was having pain earlier today and did not believe Dilaudid was helping, changed to prn Morphine
Objective Data
-
Labs:
Laboratory Results
10/10/24 10/10/24
04:12 07:30
WBC 6.1
Hgb 10.1 L
Hct 32.7 L
Plt Count 201
Sodium Cancelled 141
Potassium Cancelled 3.8
Chloride Cancelled 98
Carbon Dioxide Cancelled 38 H
BUN Cancelled 7
Creatinine Cancelled 0.5 L
Glucose Cancelled 112 H
Calcium Cancelled 8.0 L
Total Bilirubin Cancelled 0.9
AST Cancelled 31
ALT Cancelled 37 H
Alkaline Phosphatase Cancelled 201 H
Vital Signs:
Vital Signs
Temp Pulse Resp BP Pulse Ox
98.4 F 71 16 135/63 98
10/10/24 07:23 10/10/24 08:51 10/10/24 08:51 10/10/24 07:23 10/10/24 08:51
I&O
10/09/24 10/10/24 10/11/24
06:59 06:59 06:59
Intake Total 480 / 480 860 / 860 240 / 240
Output Total 600 / 600 600 / 600 850 / 850
Balance -120 / -120 260 / 260 -610 / -610
Review of Systems
-
History Source: Patient and Family ( at bedside)
Constitutional: Denies Fever
EENT: Reports No Symptoms Reported
Respiratory: Reports No Symptoms; Denies Trouble Breathing
Cardiac: Reports No Symptoms; Denies Chest Pain
Abdomen/GI: Reports Abdominal Pain (increased abd pain)
Genitourinary: Reports No Symptoms
Musculoskeletal: Reports No Symptoms
Physical Exam
-
General: Well Developed and Other (thin elderly female who appears older than stated age)
HEENT: Normocephalic, Atraumatic and Moist Mucous Membranes
Respiratory: Clear to Auscultation; Negative Wheezes, Rales or Rhonchi
Cardiac: Regular Rhythm and S1/S2
GI: Soft, Nondistended, Normal Bowel Sounds and Tender
Musculoskeletal: No Clubbing, No Cyanosis and No Edema
Neuro: Awake, Alert and Oriented
--- NOTE | 2024-10-10 17:16 | CM ---
Met with patient to obtain information for assessment. Patient stated that she lives with her spouse in a two story home with a stair glide to enter. She stated that he assists her with all of her ADLs, personal care, dressing and bathing. He does
the deputy controller, cooking, cleaning and laundry. He drives patient to appointments and does all of the shopping. Patient stated that she has home o2, a stair glide, a Bipap, grab bars in the shower and a shower chair. She is not current with VN.
She has not been to a SNF.
Patient has a prescription plan and uses, [facility] in [place] for all of her medications.
Her PCP is, Sandie Rm.
Plan: Case management will continue to follow and assist with discharge planning. She is hopeful that she will be able to return home as her spouse is her caregiver. Will watch for VN needs.
[2024-10-10] MEDS: LEVAQUIN 100 IV (17:42)
[2024-10-10] MEDS: CYMBALTA DELAYED RELEASE 20 MG PO (17:42)
[2024-10-10 23:59] VITALS: BP 155/78
[2024-10-11] VITALS (10 sets, daily range): BP systolic 130–162; BP diastolic 67–92; PULSE 90
[2024-10-11] MEDS: MORPHINE SULFATE 4 MG IV ×3 (05:30→12:33)
[2024-10-11 06:07] LABS: % Basophils 0.7 % (0-2); % Eosinophils 6.2 % (0-6); % Immature Granulocytes 0.5 % (0-0.5); % Lymphocytes 19.1 % (20.5-51.1); % Monocytes 8.7 % (1.7-9.3); % Neutrophils 64.8 % (42.2-75.2); Absolute Basophils 0.1 10^3/uL (0-0.2); Absolute Eosinophils 0.5 10^3/uL (0-0.7); Absolute Lymphocytes 1.5 10^3/uL (1.2-3.4); Absolute Monocytes 0.7 10^3/uL (0.1-0.6); Absolute Neutrophils 4.9 10^3/uL (1.4-6.5); Hematocrit 32.5 % (37.0-47.0); Hemoglobin 10.3 g/dL (12.0-16.0); Mean Corp Hgb Conc. 31.7 g/dL (33.0-37.0); Mean Corpuscular Hgb 28.5 pg (27.0-31.0); Mean Platelet Volume 10.5 fL (7.4-10.4); Nucleated Red Blood Cells % 0 %; Platelet Count 271 10^3/uL (130-400); Red Blood Cell Count 3.61 10^6/uL (4.20-5.40); Red Cell Dist. Width 13.2 % (11.5-14.5); White Blood Cell Count 7.6 10^3/uL (4.8-10.8)
[2024-10-11] MEDS: KLONOPIN 0.25 MG PO ×4 (06:16→23:33)
[2024-10-11] MEDS: OXYCONTIN (CONTROLLED RELEASE) 40 MG PO ×4 (06:17→23:33)
[2024-10-11 06:28] LABS: ALT (SGPT) 37 U/L (0-35); AST (SGOT) 42 U/L (14-36); Albumin 3.4 g/dl (3.5-5.0); Alkaline Phosphatase 184 U/L (38-126); Blood Urea Nitrogen 5 mg/dl (7-17); Calcium 8.2 mg/dl (8.4-10.2); Carbon Dioxide 32 mmol/L (22-30); Chloride 98 mmol/L (98-107); Estimated Creatinine Clearance 81 ml/min; Glucose 113 mg/dl (70-99); Potassium 4.2 mmol/L (3.5-5.1); Sodium 140 mmol/L (135-145); Total Bilirubin 1.3 mg/dl (0.2-1.3); Total Protein 6.7 g/dl (6.3-8.2); eGFR > 60.00
--- NOTE | 2024-10-11 06:30 | VATNOTE ---
10/11/24 1921
Called by PCN to look at patients new IV site. Patient was given morphine and has redness, pain and streaking on her forearm. IV discontinued and moved to the other side. Arm elevated and warm compress applied. VAT to follow.
[2024-10-11] MEDS: SPIRIVA RESPIMAT 2.5 MCG 2 PUFF INH (08:03)
[2024-10-11] MEDS: CYMBALTA DELAYED RELEASE 30 MG PO ×2 (09:21→19:27)
[2024-10-11] MEDS: PROTONIX IV 40 MG IV (09:22)
[2024-10-11] MEDS: HEPARIN 5000 UNITS SC ×2 (09:22→20:15)
[2024-10-11] MEDS: MUCINEX 1200 MG PO ×2 (09:22→20:16)
[2024-10-11] MEDS: NSS (PRESERVATIVE FREE) 10 ML IV (09:23)
[2024-10-11] MEDS: FLAGYL 500 MG 100 IV ×2 (09:24→23:33)
[2024-10-11] MEDS: NSS 1000 IV (12:25)
--- NOTE | 2024-10-11 13:48 | W.PN.HOSP.TC ---
Today's Communication/Plan
-
ERCP and Lap emilee planning
IV Abx
IVF
Assessment / Plan
Assessment / Plan
Assessment:
Acute cholelithiasis with choledocholithiasis
elevated LFTs
- MRI/MRCP abdomen: Cholelithiasis with suspicion for acute cholecystitis in the proper clinical setting. Choledocholithiasis with multiple distal common bile duct calculi and secondary distention of the biliary system. Findings suggest pancreatic
divisum. Mild hepatomegaly. Bibasilar pulmonary parenchymal consolidation, right greater than left, atelectasis versus pneumonia
- GI following; ERCP today
- GS following; lap emilee today
- NPO for now
- pain control, anti-emetics
- continue IVF
- continue Levaquin/Flagyl
CVA/intracranial hemorrhage miguelina 2006
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
- walks with assist of person cannot use walker
- continue patient's pain regimen OxyContin QID, Cymbalta TID
- patient follows with Dr. Bryan Zhao pain management in [facility]
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
- Bipap Full mask 12/5 with 2 L of oxygen
- follow up OP Pulm
GERD
- continue PPI
Chronic anxiety
- continue Klonopin 0.25 TID. dosing adjusted, states pt takes as scheduled, not prn
DVT ppx: SC heparin
Code: Full
Anticipated Discharge: > 48 hours
Subjective/Interval History
-
Date of Service: October 11, 2024
reports stable, but 10/10 abdominal pain
Objective Data
-
Labs:
Laboratory Results
10/11/24
05:34
WBC 7.6
Hgb 10.3 L
Hct 32.5 L
Plt Count 271 D
Sodium 140
Potassium 4.2
Chloride 98
Carbon Dioxide 32 H
BUN 5 L
Creatinine 0.4 L
Glucose 113 H
Calcium 8.2 L
Total Bilirubin 1.3
AST 42 H
ALT 37 H
Alkaline Phosphatase 184 H
Vital Signs:
Vital Signs
Temp Pulse Resp BP Pulse Ox
98.8 F 82 20 158/73 97
10/11/24 08:52 10/11/24 08:52 10/11/24 08:52 10/11/24 08:52 10/11/24 08:52
I&O
10/10/24 10/11/24 10/12/24
06:59 06:59 06:59
Intake Total 860 / 860 1720 / 1720
Output Total 600 / 600 3025 / 3025
Balance 260 / 260 -1305 / -1305
Physical Exam
-
General: No Apparent Distress
HEENT: Normocephalic and Atraumatic
Respiratory: Negative Wheezes
Cardiac: Regular Rhythm and S1/S2
GI: Tender
Musculoskeletal: No Edema
Neuro: AO x 3
Hematologic / Lymphatic: No Lymphadenopathy
Psych: Calm
Data Reviewed
-
Total Time Spent with Patient (in minutes): 45
Labs: Labs Reviewed by me
--- NOTE | 2024-10-11 18:45 | PTCARENOTE ---
received from PACU post ERCP- transferred to bed. patient awake and oriented, some abd discomfort. at bedside. patient incontinent of urine, bed linens changed. plan of care on going.
[2024-10-11] MEDS: LEVAQUIN 100 IV (19:27)
[2024-10-11] MEDS: CYMBALTA DELAYED RELEASE 20 MG PO (19:27)
[2024-10-11] MEDS: FLAGYL 500 MG IV (19:28)
[2024-10-12] VITALS (18 sets, daily range): BP systolic 10–189; BP diastolic 68–128; PULSE 105
[2024-10-12] MEDS: KLONOPIN 0.25 MG PO ×3 (05:57→23:16)
[2024-10-12] MEDS: OXYCONTIN (CONTROLLED RELEASE) 40 MG PO ×3 (05:57→23:16)
[2024-10-12] MEDS: SPIRIVA RESPIMAT 2.5 MCG 2 PUFF INH (07:51)
[2024-10-12 07:54] LABS: Hematocrit 31.8 % (37.0-47.0); Hemoglobin 10.1 g/dL (12.0-16.0); Mean Corp Hgb Conc. 31.8 g/dL (33.0-37.0); Mean Corpuscular Hgb 28.5 pg (27.0-31.0); Mean Corpuscular Volume 89.8 fL (81.0-99.0); Mean Platelet Volume 10.6 fL (7.4-10.4); Platelet Count 279 10^3/uL (130-400); Red Blood Cell Count 3.54 10^6/uL (4.20-5.40); Red Cell Dist. Width 12.8 % (11.5-14.5); White Blood Cell Count 5.5 10^3/uL (4.8-10.8)
[2024-10-12 08:11] LABS: ALT (SGPT) 27 U/L (0-35); AST (SGOT) 28 U/L (14-36); Albumin 2.9 g/dl (3.5-5.0); Alkaline Phosphatase 156 U/L (38-126); Blood Urea Nitrogen 5 mg/dl (7-17); Calcium 8.1 mg/dl (8.4-10.2); Carbon Dioxide 35 mmol/L (22-30); Chloride 100 mmol/L (98-107); Estimated Creatinine Clearance 81 ml/min; Glucose 116 mg/dl (70-99); Potassium 3.8 mmol/L (3.5-5.1); Sodium 140 mmol/L (135-145); Total Bilirubin 0.8 mg/dl (0.2-1.3); Total Protein 5.8 g/dl (6.3-8.2); eGFR > 60.00
--- NOTE | 2024-10-12 08:55 | W.PN.GS2 ---
Today's Communication / Plan
-
-- Laparoscopic cholecystectomy with pos IOC
-- NPO, IVF
-- Abx: Levo/Flagyl
Assessment / Plan
-
Patient is a 74 yo F p/w choledocholithiasis
PPD#1 s/p ERCP with stone extraction, partial opacification of cystic not of GB
AVSS labs reviewed notable for normal WBC, stable Hb, normal bilirubin, LFTs, downtrending ALP
The natural history and pathophysiology of biliary and stone disease was briefly reviewed. Workup thus far management was briefly reviewed. Role of cholecystectomy in preventing future episodes of cholecystitis, choledocholithiasis, or gallstone
pancreatitis was reviewed. Options for management were reviewed. Patient and son would like to proceed with cholecystectomy.
Plan for a laparoscopic cholecystectomy with possible cholangiogram. The procedure itself, as well as the risks, benefits, and alternatives was discussed. Specifically, we discussed the risk of bleeding, infection, injury to surrounding structures
(bowel, bile ducts), CBD injury, need for open procedure. Typical postprocedural coverage including pain management, activity restrictions, and a 10 to 20% risk of fluctuations in GI function was discussed. All questions answered. Consent signed.
-- Laparoscopic cholecystectomy with pos IOC
-- NPO, IVF
-- Abx: Levo/Flagyl
Subjective Data
-
Date of Service: October 12, 2024
Feels slightly improved post ERCP. Does continue to have some RUQ and back discomfort. No nausea or vomiting. No fevers.
Objective Data
-
Intake and Output
10/11/24 10/12/24 10/13/24
06:59 06:59 06:59
Intake Total 1720 / 1720 220 / 220
Output Total 3025 / 3025 2125 / 2125
Balance -1305 / -1305 -1905 / -1905
Intake:
Oral fluids 920 / 920 120 / 120
IV fluids (Total) 600 / 600 100 / 100
Normosol 100 / 100
IV piggybacks 200 / 200
Output:
Urine, Voided 3025 / 3025 2124 / 212
Other:
How many times incontinent 3 3
SATURATED amount urine
Vital Signs
Temp Pulse Resp BP Pulse Ox
97.0 F 72 18 132/75 97
10/12/24 03:56 10/12/24 07:57 10/12/24 07:57 10/12/24 03:56 10/12/24 07:57
Lab Results
10/12/24 07:27
10/12/24 07:27
Calcium 8.1 mg/dl (8.4-10.2) L 10/12/24 07:27
Total Bilirubin 0.8 mg/dl (0.2-1.3) 10/12/24 07:27
Direct Bilirubin 1.0 mg/dl (0.0-0.4) H 10/08/24 14:14
AST 28 U/L (14-36) 10/12/24 07:27
ALT 27 U/L (0-35) 10/12/24 07:27
Alkaline Phosphatase 156 U/L (38-126) H 10/12/24 07:27
Total Protein 5.8 g/dl (6.3-8.2) L 10/12/24 07:27
Albumin 2.9 g/dl (3.5-5.0) L 10/12/24 07:27
Physical Exam
-
Gen: NAD
Abd: soft, tender in RUQ/epigastrium, ND, non-peritoneal
Patient has a moody catheter: No
Patient has a central line: No
[2024-10-12] MEDS: MUCINEX 1200 MG PO ×2 (08:58→20:30)
[2024-10-12] MEDS: FLAGYL 500 MG 100 IV ×3 (08:59→23:16)
[2024-10-12] MEDS: HEPARIN 5000 UNITS SC ×2 (08:59→20:30)
[2024-10-12] MEDS: CYMBALTA DELAYED RELEASE 30 MG PO ×2 (08:59→18:33)
[2024-10-12] MEDS: NSS (PRESERVATIVE FREE) 10 ML IV (09:00)
[2024-10-12] MEDS: PROTONIX IV 40 MG IV (09:00)
[2024-10-12] MEDS: NSS 1000 IV (09:01)
--- NOTE | 2024-10-12 09:01 | W.SUR.PREOP ---
Pre-Operative Surgical Note
-
I have examined this patient prior to the performance of the scheduled procedure.
The patient's condition is unchanged from the time of the current History and
Physical and the patient is able to undergo the scheduled procedure.
--- NOTE | 2024-10-12 10:46 | CM ---
Chart reviewed. OR today for laparoscopic cholecystectomy.
PT/OT to be re-ordered post op
CM will watch for any needs
--- NOTE | 2024-10-12 12:18 | W.PN.HOSP.TC ---
Today's Communication/Plan
-
lap emilee today
Assessment / Plan
Assessment / Plan
Assessment:
Acute cholelithiasis with choledocholithiasis
elevated LFTs
- MRI/MRCP abdomen: Cholelithiasis with suspicion for acute cholecystitis in the proper clinical setting. Choledocholithiasis with multiple distal common bile duct calculi and secondary distention of the biliary system. Findings suggest pancreatic
divisum. Mild hepatomegaly. Bibasilar pulmonary parenchymal consolidation, right greater than left, atelectasis versus pneumonia
- s/p ERCP 10/11 biliary sphincterotomy and balloon extraction
- for lap emilee today
- follow labs
- IVF
- continue Levaquin/Flagyl day 3
CVA/intracranial hemorrhage miguelina 2006
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
- walks with assist of person cannot use walker
- continue patient's pain regimen OxyContin QID, Cymbalta TID
- patient follows with Dr. Bryan Zhao pain management in [facility]
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
- Bipap Full mask 05/13 with 2 L of oxygen
- follow up OP Pulm
GERD
- continue PPI
Chronic anxiety
- continue Klonopin 0.25 TID. dosing adjusted, states pt takes as scheduled, not prn
DVT ppx: SC heparin
Code: Full
Anticipated Discharge: 24 - 48 hours
Subjective/Interval History
-
Date of Service: October 12, 2024
resting comfortably, no complaints
Objective Data
-
Labs:
Laboratory Results
10/12/24
07:27
WBC 5.5
Hgb 10.1 L
Hct 31.8 L
Plt Count 279
Sodium 140
Potassium 3.8
Chloride 100
Carbon Dioxide 35 H
BUN 5 L
Creatinine 0.5 L
Glucose 116 H
Calcium 8.1 L
Total Bilirubin 0.8
AST 28
ALT 27
Alkaline Phosphatase 156 H
Vital Signs:
Vital Signs
Temp Pulse Resp BP Pulse Ox
97.6 F 72 18 149/68 97
10/12/24 07:23 10/12/24 07:57 10/12/24 07:57 10/12/24 07:23 10/12/24 07:57
I&O
10/11/24 10/12/24 10/13/24
06:59 06:59 06:59
Intake Total 1720 / 1720 220 / 220
Output Total 3025 / 3025 2125 / 2125
Balance -1305 / -1305 -1905 / -1905
Physical Exam
-
General: No Apparent Distress
HEENT: Normocephalic and Atraumatic
Respiratory: Negative Wheezes
Cardiac: Regular Rhythm and S1/S2
GI: Soft
Genito-urinary: No Costovertebral Tender
Neuro: AO x 3
Psych: Calm
Data Reviewed
-
Total Time Spent with Patient (in minutes): 42
Labs: Labs Reviewed by me
--- NOTE | 2024-10-12 12:32 | W.PN.GI.CBS2 ---
Today's Communication / Plan
-
s/p ERCP
LFT improving
per family doing well
not see as in OR
will follow up 10/13
Assessment / Plan
-
Lashawn is a 74-year-old female with history of right-sided hemiplegia after intracranial hemorrhage, atrial tachycardia, GERD, on chronic narcotics, COPD on 2 L of home O2 and BiPAP at night here with upper abdominal pain and nausea for 5 days with
change in color of stools as well as dark urine found to have cholecystitis and choledocholithiasis on MRI with mildly elevated bilirubin and liver chemistries with an alkaline phosphatase 289, ALT 58, total bilirubin 1.7
10/11/24 ERCP - The major papilla appeared normal.
- A filling defect consistent with a stone was seen on
the cholangiogram.
- Choledocholithiasis was found. Complete removal was
accomplished by biliary sphincterotomy and balloon
extraction.
- A biliary sphincterotomy was performed.
- The biliary tree was swept.
-Abnormal liver chemistries in the setting of abdominal pain and nausea
--Cholecystitis + choledocholithiasis on MRI-- s/p ERCP 10/11
-hx CVA
-GERD
-chronic anxiety
PLAN:
s/p ERCP
LFT improving
per family doing well
not see as in OR
will follow up 10/13
Subjective
Subjective
Date of Service: October 12, 2024
NPO no stools--pt in OR not see per family feeling better
Objective
Data Reviewed
Laboratory Data:
Laboratory Results
10/12/24 07:27
10/12/24 07:27
Laboratory Results
Total Bilirubin 0.8 mg/dl (0.2-1.3) 10/12/24 07:27
AST 28 U/L (14-36) 10/12/24 07:27
ALT 27 U/L (0-35) 10/12/24 07:27
Alkaline Phosphatase 156 U/L (38-126) H 10/12/24 07:27
Lipase < 10 U/L (23-300) L 10/08/24 14:14
Vital Signs and I&O:
Vital Signs
Temp Pulse Resp BP Pulse Ox
97.6 F 72 18 149/68 97
10/12/24 07:23 10/12/24 07:57 10/12/24 07:57 10/12/24 07:23 10/12/24 07:57
I&O
10/11/24 10/12/24 10/13/24
06:59 06:59 06:59
Intake Total 1720 / 1720 220 / 220
Output Total 3025 / 3025 2125 / 2125
Balance -1305 / -1305 -1905 / -1905
Physical Exam
Physical Exam
Neuro: Other (pt not examined as in OR)
--- NOTE | 2024-10-12 14:14 | W.IMMPOSTOP ---
Addendum entered and electronically signed by Wolfgang Miller MD 10/15/24 12:39:
Correction:
Specimen / Cultures:
1. Gallbladder
Original Note:
Surgical Immed Post Op Note
-
Primary Surgeon: Paul
Assisting Surgeon: LESLIE Humphreys
Pre-op Diagnosis: Choledocholithiasis
Post-op Diagnosis: Chronic cholecystitis
Procedure Performed: Laparoscopic cholecystectomy intraoperative cholangiogram, laparoscopic lysis of adhesions
Anesthesia Type: General
Specimen / Cultures:
1. Appendix
Estimated Blood Loss: 23 cc
Complications: None
Operative Findings:
1. Severe dense omental adhesions within the RUQ, duodenum draped onto GB, GB encased with stone debris, chronic wall thickening, intra-hepatic GB
2. Laparoscopic lysis of adhesions for 20-30 min to clear RUQ
3. Duct and artery identified, IOC without clear filling defects and anatomy confirmed
4. Duct take with clips + Endoloop, artery with clips (of note posterior branch and omental vessels taken with clips as well
5. 19 Fr DAVID into operative field
[2024-10-12] MEDS: KLONOPIN PO (16:11)
[2024-10-12] MEDS: OXYCONTIN (CONTROLLED RELEASE) PO (16:11)
--- NOTE | 2024-10-12 16:45 | PTCARENOTE ---
received from PACU- awake but sleeps if not disturbed, vitals noted, pox 96% on 3l nasal cannula, decreased back to baseline of 2 liters. pox 94%, continous POX placed on patient. patient incontinent of large amount of urine. bed linens changed and
purewick put in place. patient then voided again mod amount of clear yellow urine. right DAVID in place with small amount of bloody drainage. 4 puncture site on abdomen intact with surgical glue. patient with minimal abd pain, ice pack in place to abd
puncture sites. call keyes in reach. at bedside. plan of care on going.
[2024-10-12] MEDS: NSS IV (17:48)
[2024-10-12] MEDS: LEVAQUIN 100 IV (18:22)
[2024-10-12] MEDS: CYMBALTA DELAYED RELEASE 20 MG PO (18:33)
[2024-10-12] MEDS: MORPHINE SULFATE 4 MG IV (20:35)
[2024-10-13] VITALS (8 sets, daily range): BP systolic 113–186; BP diastolic 67–88; PULSE 91; O2SAT 97
[2024-10-13] MEDS: LOPRESSOR 2.5 MG IV ×2 (04:11→06:34)
[2024-10-13] MEDS: KLONOPIN 0.25 MG PO ×4 (05:05→23:02)
[2024-10-13] MEDS: OXYCONTIN (CONTROLLED RELEASE) 40 MG PO ×4 (05:05→23:02)
[2024-10-13] MEDS: MORPHINE SULFATE 4 MG IV (05:51)
--- NOTE | 2024-10-13 07:08 | W.PN.GS2 ---
Today's Communication / Plan
-
-- Low fat diet
-- OK to DC IVF if tolerating diet
-- Abx: Levo/Flagyl (would plan on treatment for 5 days post-op)
-- Pain control: Tylenol, Toradol, home Oxycodone
-- Maintain DAVID for today, likely DC on DC (tentatively tomorrow from surgical perspective)
Assessment / Plan
-
Patient is a 74 yo F p/w choledocholithiasis
PPD#2 s/p ERCP with stone extraction, partial opacification of cystic not of GB
POD#1 s/p laparoscopic cholecystectomy with IOC
AVSS, post-op tachycardia improved
Labs pending
Recovering well overall. No postoperative concerns. Given the severity of her gallbladder inflammation and challenging procedure, recommend additional monitoring in the hospital for 24 hours. Will assess dietary tolerance and drain outputs and
give additional IV antibiotics.
-- Low fat diet
-- OK to DC IVF if tolerating diet
-- Abx: Levo/Flagyl (would plan on treatment for 5 days post-op)
-- Pain control: Tylenol, Toradol, home Oxycodone
-- DVT: SQH
-- GI: Protonix
-- Maintain DAVID for today, likely DC on DC (tentatively tomorrow from surgical perspective)
Subjective Data
-
Date of Service: October 13, 2024
Reports of body pains, but does not appear overly bothered. No nausea or vomiting. No fevers. Passing flatus, no BM.
Objective Data
-
Intake and Output
10/12/24 10/13/24 10/14/24
06:59 06:59 06:59
Intake Total 220 / 220 1750 / 1750
Output Total 2125 / 2125 2500 / 2500
Balance -1905 / -1905 -750 / -750
Intake:
Oral fluids 120 / 120 780 / 780
IV fluids (Total) 100 / 100 870 / 870
Normosol 100 / 100 150 / 150
IV piggybacks 100 / 100
Output:
Drain Output (Total) 50 / 50
Left Lower Abdomen Eugene- 50 /
Mercado
Urine, Voided 5 / 2125 2450 / 2450
Other:
How many times incontinent 3
SATURATED amount urine
Vital Signs
Temp Pulse Resp BP Pulse Ox
97.6 F 97 18 163/78 95
10/13/24 03:46 10/13/24 06:34 10/13/24 03:46 10/13/24 06:34 10/13/24 03:46
Calcium 8.1 mg/dl (8.4-10.2) L 10/12/24 07:27
Total Bilirubin 0.8 mg/dl (0.2-1.3) 10/12/24 07:27
Direct Bilirubin 1.0 mg/dl (0.0-0.4) H 10/08/24 14:14
AST 28 U/L (14-36) 10/12/24 07:27
ALT 27 U/L (0-35) 10/12/24 07:27
Alkaline Phosphatase 156 U/L (38-126) H 10/12/24 07:27
Total Protein 5.8 g/dl (6.3-8.2) L 10/12/24 07:27
Albumin 2.9 g/dl (3.5-5.0) L 10/12/24 07:27
Physical Exam
-
Gen: NAD
Abd: soft, mild/moderate tenderness, ND, non-peritoneal, incisions c/d/i - no erythema, ecchymosis or drainage, DAVID minimal serous, non-bilious
Patient has a moody catheter: No
Patient has a central line: No
[2024-10-13 07:26] LABS: Hematocrit 35.2 % (37.0-47.0); Hemoglobin 11.8 g/dL (12.0-16.0); Mean Corp Hgb Conc. 33.5 g/dL (33.0-37.0); Mean Corpuscular Volume 86.5 fL (81.0-99.0); Mean Platelet Volume 10.2 fL (7.4-10.4); Platelet Count 406 10^3/uL (130-400); Red Blood Cell Count 4.07 10^6/uL (4.20-5.40); Red Cell Dist. Width 13.2 % (11.5-14.5); White Blood Cell Count 18.1 10^3/uL (4.8-10.8)
[2024-10-13] MEDS: SPIRIVA RESPIMAT 2.5 MCG 2 PUFF INH (07:47)
[2024-10-13 07:51] LABS: ALT (SGPT) 34 U/L (0-35); AST (SGOT) 49 U/L (14-36); Albumin 3.3 g/dl (3.5-5.0); Alkaline Phosphatase 174 U/L (38-126); Blood Urea Nitrogen 6 mg/dl (7-17); Calcium 8.4 mg/dl (8.4-10.2); Carbon Dioxide 31 mmol/L (22-30); Chloride 97 mmol/L (98-107); Estimated Creatinine Clearance 81 ml/min; Glucose 189 mg/dl (70-99); Potassium 4.1 mmol/L (3.5-5.1); Sodium 137 mmol/L (135-145); Total Bilirubin 0.9 mg/dl (0.2-1.3); Total Protein 6.5 g/dl (6.3-8.2); eGFR > 60.00
[2024-10-13] MEDS: FLAGYL 500 MG 100 IV ×3 (09:16→23:02)
[2024-10-13] MEDS: HEPARIN 5000 UNITS SC ×2 (09:16→20:00)
[2024-10-13] MEDS: TORADOL 15 MG IV ×3 (09:17→21:43)
[2024-10-13] MEDS: PROTONIX IV 40 MG IV (09:17)
[2024-10-13] MEDS: NSS (PRESERVATIVE FREE) 10 ML IV (09:18)
[2024-10-13] MEDS: MUCINEX 1200 MG PO ×2 (09:19→20:00)
[2024-10-13] MEDS: CYMBALTA DELAYED RELEASE 30 MG PO ×2 (09:20→17:41)
--- NOTE | 2024-10-13 11:59 | PN.CDI ---
CDI
- -
CDI:
Physician Documentation Request
Admit Date: 10/08/24 21:51
Dear Doctor Beverly
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
Please clarify which of the following accurately represents the patient's respiratory status:
Chronic respiratory failure - please specify type
Chronic hypercarbia
Other
Use of terms such as suspected, likely, concern for, or probable (associated with a specific diagnosis that is being evaluated, monitored, or treated as if it exists) are acceptable and can be coded in the inpatient setting, when documented at the
time of discharge.
Thank you,
Maryana Zhu RN, BSN
CDI Specialist
tiger text
Please use your independent medical judgment in providing your response.
--- NOTE | 2024-10-13 12:26 | W.PN.GI.CBS2 ---
Today's Communication / Plan
-
continue follow surgery recommendations
Assessment / Plan
-
Lashawn is a 74-year-old female with history of right-sided hemiplegia after intracranial hemorrhage, atrial tachycardia, GERD, on chronic narcotics, COPD on 2 L of home O2 and BiPAP at night here with upper abdominal pain and nausea for 5 days with
change in color of stools as well as dark urine found to have cholecystitis and choledocholithiasis on MRI with mildly elevated bilirubin and liver chemistries with an alkaline phosphatase 289, ALT 58, total bilirubin 1.7
10/11/24 ERCP - The major papilla appeared normal.
- A filling defect consistent with a stone was seen on
the cholangiogram.
- Choledocholithiasis was found. Complete removal was
accomplished by biliary sphincterotomy and balloon
extraction.
- A biliary sphincterotomy was performed.
- The biliary tree was swept.
-Abnormal liver chemistries in the setting of abdominal pain and nausea
--Cholecystitis + choledocholithiasis on MRI-- s/p ERCP 10/11
-hx CVA
-GERD
-chronic anxiety
PLAN:
Patient underwent laparoscopic cholecystectomy with IOC yesterday.IOC negative
Continue follow-up with surgery recommendation
will s/o
Total Time Spent with Patient (in minutes): 35
Subjective
Subjective
Date of Service: October 13, 2024
Patient underwent cholecystectomy yesterday
Objective
Data Reviewed
Laboratory Data:
Laboratory Results
10/13/24 06:52
10/13/24 06:52
Laboratory Results
Total Bilirubin 0.9 mg/dl (0.2-1.3) 10/13/24 06:52
AST 49 U/L (14-36) H 10/13/24 06:52
ALT 34 U/L (0-35) 10/13/24 06:52
Alkaline Phosphatase 174 U/L (38-126) H 10/13/24 06:52
Lipase < 10 U/L (23-300) L 10/08/24 14:14
Vital Signs and I&O:
Vital Signs
Temp Pulse Resp BP Pulse Ox
98.3 F 83 16 163/77 98
10/13/24 07:03 10/13/24 07:03 10/13/24 08:01 10/13/24 07:03 10/13/24 10:17
I&O
10/12/24 10/13/24 10/14/24
06:59 06:59 06:59
Intake Total 220 / 220 1750 / 1750
Output Total 2125 / 2125 2500 / 2500
Balance -1905 / -1905 -750 / -750
Physical Exam
Physical Exam
GI: Soft, Non Distended, Tender and Other (DAVID drain+)
--- NOTE | 2024-10-13 12:45 | W.PN.HOSP.TC ---
Today's Communication/Plan
-
LFD
pain control, anti-emetics, Abx
DC Planning - PT/OT evals
Assessment / Plan
Assessment / Plan
Assessment:
Acute cholelithiasis with choledocholithiasis
elevated LFTs
- MRI/MRCP abdomen: Cholelithiasis with suspicion for acute cholecystitis in the proper clinical setting. Choledocholithiasis with multiple distal common bile duct calculi and secondary distention of the biliary system. Findings suggest pancreatic
divisum. Mild hepatomegaly. Bibasilar pulmonary parenchymal consolidation, right greater than left, atelectasis versus pneumonia
- s/p ERCP 10/11 biliary sphincterotomy and balloon extraction
- s/p lap emilee 10/12
- pain control, anti-emetics
- continue Levaquin/Flagyl day 09/16
- drain care per GS
- GI signed off
CVA/intracranial hemorrhage miguelina 2006
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
- walks with assist of person cannot use walker
- continue patient's pain regimen OxyContin QID, Cymbalta TID
- patient follows with Dr. Bryan Zhao pain management in [facility]
Chronic hypoxemic and hypercapnic respiraory falure: O2 dependent 2 liters
- Bipap Full mask 05/13 with 2 L of oxygen
- follow up OP Pulm
GERD
- continue PPI
Chronic anxiety
- continue Klonopin 0.25 TID. dosing adjusted, states pt takes as scheduled, not prn
DVT ppx: SC heparin
Code: Full
Anticipated Discharge: Within 24 hours
Subjective/Interval History
-
Date of Service: October 13, 2024
+ flatus, no BM
no n/v/f/c
Objective Data
-
Labs:
Laboratory Results
10/13/24
06:52
WBC 18.1 H
Hgb 11.8 L
Hct 35.2 L
Plt Count 406 H D
Sodium 137
Potassium 4.1
Chloride 97 L
Carbon Dioxide 31 H
BUN 6 L
Creatinine 0.4 L
Glucose 189 H
Calcium 8.4
Total Bilirubin 0.9
AST 49 H
ALT 34
Alkaline Phosphatase 174 H
Vital Signs:
Vital Signs
Temp Pulse Resp BP Pulse Ox
98.3 F 83 16 163/77 98
10/13/24 07:03 10/13/24 07:03 10/13/24 08:01 10/13/24 07:03 10/13/24 10:17
I&O
10/12/24 10/13/24 10/14/24
06:59 06:59 06:59
Intake Total 220 / 220 1750 / 1750
Output Total 2125 / 2125 2500 / 2500
Balance -1905 / -1905 -750 / -750
Physical Exam
-
General: No Apparent Distress
HEENT: Normocephalic
Respiratory: Negative Wheezes
Cardiac: Regular Rhythm and S1/S2
GI: Soft
Musculoskeletal: No Edema
Hematologic / Lymphatic: No Lymphadenopathy
Psych: Calm
Data Reviewed
-
Total Time Spent with Patient (in minutes): 42
Labs: Labs Reviewed by me
[2024-10-13] MEDS: MIRALAX 17 GRAMS PO (14:22)
[2024-10-13] MEDS: LEVAQUIN 100 IV (16:52)
[2024-10-13] MEDS: CYMBALTA DELAYED RELEASE 20 MG PO (17:41)
[2024-10-14] MEDS: KLONOPIN 0.25 MG PO (05:11)
[2024-10-14] MEDS: OXYCONTIN (CONTROLLED RELEASE) 40 MG PO (05:12)
[2024-10-14] MEDS: TORADOL 15 MG IV (06:29)
[2024-10-14] MEDS: HEPARIN 5000 UNITS SC (07:35)
[2024-10-14] MEDS: CYMBALTA DELAYED RELEASE 30 MG PO (07:35)
[2024-10-14] MEDS: PROTONIX IV 40 MG IV (07:38)
[2024-10-14] MEDS: NSS (PRESERVATIVE FREE) 10 ML IV (07:38)
[2024-10-14] MEDS: MUCINEX 1200 MG PO (07:40)
[2024-10-14] MEDS: FLAGYL 500 MG 100 IV (07:41)
[2024-10-14] MEDS: MIRALAX PO (07:41)
[2024-10-14] MEDS: MIRALAX 17 GRAMS PO (07:49)
[2024-10-14 07:55] VITALS: BP 125/63
[2024-10-14] MEDS: SPIRIVA RESPIMAT 2.5 MCG 2 PUFF INH (07:55)
--- NOTE | 2024-10-14 08:31 | W.PN.GS2 ---
Today's Communication / Plan
-
-- Abx: Levo/Flagyl, would discharge on 4 additional days PO post-op
-- DAVID drain removed
-- OK for DC from surgical perspective
-- DC instructions updated, f/u in 2-4 weeks
Assessment / Plan
-
Patient is a 74 yo F p/w choledocholithiasis
PPD#3 s/p ERCP with stone extraction, partial opacification of cystic not of GB
POD#2 s/p laparoscopic cholecystectomy with IOC
AVSS, post-op tachycardia improved
Labs pending
Recovering well overall. No postoperative concerns. DAVID drain removed. Would discharge on abx for 4 additional days post-op
-- Low fat diet
-- Abx: Levo/Flagyl, would discharge on 4 additional days PO post-op
-- Pain control: Tylenol, Toradol, home Oxycodone
-- DVT: SQH
-- GI: Protonix
-- DAVID drain removed
-- OK for DC from surgical perspective
-- DC instructions updated, f/u in 2-4 weeks
-- Call with questions or concerns
Subjective Data
-
Date of Service: October 14, 2024
No complaints, feels improved. Pain well-controlled. No nausea or vomiting. Passing flatus. Voiding. Afebrile.
Objective Data
-
Intake and Output
10/13/24 10/14/24 10/15/24
06:59 06:59 06:59
Intake Total 1750 / 1750 700 / 700
Output Total 2500 / 2500 520 / 520
Balance -750 / -750 180 / 180
Intake:
Oral fluids 780 / 780 600 / 600
IV fluids (Total) 870 / 870
Normosol 150 / 150
IV piggybacks 100 / 100 100 / 100
Output:
Drain Output (Total) 50 / 50 20 / 20
Left Lower Abdomen Eugene-
Mercado
Right Abdomen Eugene-Mercado
Urine, Voided 2450 / 2450 500 / 500
Other:
Number of approximated SMALL 2
amounts of urine
How many times incontinent 2
MODERATE amount urine
Vital Signs
Temp Pulse Resp BP Pulse Ox
97.9 F 107 16 113/71 98
10/13/24 23:20 10/13/24 23:20 10/14/24 08:03 10/13/24 23:20 10/14/24 08:03
Calcium 8.4 mg/dl (8.4-10.2) 10/13/24 06:52
Total Bilirubin 0.9 mg/dl (0.2-1.3) 10/13/24 06:52
Direct Bilirubin 1.0 mg/dl (0.0-0.4) H 10/08/24 14:14
AST 49 U/L (14-36) H 10/13/24 06:52
ALT 34 U/L (0-35) 10/13/24 06:52
Alkaline Phosphatase 174 U/L (38-126) H 10/13/24 06:52
Total Protein 6.5 g/dl (6.3-8.2) 10/13/24 06:52
Albumin 3.3 g/dl (3.5-5.0) L 10/13/24 06:52
Physical Exam
-
Gen: NAD
Abd: soft, minimal tenderness, ND, non-peritoneal, incisions c/d/i - no erythema, ecchymosis or drainage, DAVID serosang, non-bilious (removed)
Patient has a moody catheter: No
Patient has a central line: No
[2024-10-14 09:28] LABS: Hematocrit 31.1 % (37.0-47.0); Hemoglobin 9.9 g/dL (12.0-16.0); Mean Corp Hgb Conc. 31.8 g/dL (33.0-37.0); Mean Corpuscular Hgb 28.5 pg (27.0-31.0); Mean Corpuscular Volume 89.6 fL (81.0-99.0); Mean Platelet Volume 10.1 fL (7.4-10.4); Platelet Count 314 10^3/uL (130-400); Red Blood Cell Count 3.47 10^6/uL (4.20-5.40); Red Cell Dist. Width 13.7 % (11.5-14.5); White Blood Cell Count 8.8 10^3/uL (4.8-10.8)
[2024-10-14 10:04] LABS: ALT (SGPT) 23 U/L (0-35); AST (SGOT) 27 U/L (14-36); Alkaline Phosphatase 123 U/L (38-126); Blood Urea Nitrogen 11 mg/dl (7-17); Carbon Dioxide 33 mmol/L (22-30); Chloride 97 mmol/L (98-107); Estimated Creatinine Clearance 81 ml/min; Glucose 120 mg/dl (70-99); Potassium 3.5 mmol/L (3.5-5.1); Sodium 137 mmol/L (135-145); Total Bilirubin 0.7 mg/dl (0.2-1.3); Total Protein 5.8 g/dl (6.3-8.2); eGFR > 60.00
--- NOTE | 2024-10-14 10:38 | W.PN.HOSP.TC ---
Today's Communication/Plan
-
dc home VN
Assessment / Plan
Assessment / Plan
Assessment:
Acute cholelithiasis with choledocholithiasis
elevated LFTs
- MRI/MRCP abdomen: Cholelithiasis with suspicion for acute cholecystitis in the proper clinical setting. Choledocholithiasis with multiple distal common bile duct calculi and secondary distention of the biliary system. Findings suggest pancreatic
divisum. Mild hepatomegaly. Bibasilar pulmonary parenchymal consolidation, right greater than left, atelectasis versus pneumonia
- s/p ERCP 10/11 biliary sphincterotomy and balloon extraction
- s/p lap emilee 10/12
- pain control, anti-emetics
- continue Levaquin/Flagyl day 10/16
- drain removed by GS
- OP GS f/u
CVA/intracranial hemorrhage miguelina 2006
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
- walks with assist of person cannot use walker
- continue patient's pain regimen OxyContin QID, Cymbalta TID
- patient follows with Dr. Bryan Zhao pain management in [facility]
Chronic hypoxemic and hypercapnic respiraory falure: O2 dependent 2 liters
- Bipap Full mask 05/13 with 2 L of oxygen
- follow up OP Pulm
GERD
- continue PPI
Chronic anxiety
- continue Klonopin 0.25 TID. dosing adjusted, states pt takes as scheduled, not prn
DVT ppx: SC heparin
Code: Full
More than 30 minutes spent in discharge including
Final examination of the patient
Summarizing hospital stay
Instructions for continuing care to all relevant caregivers
Preparation of discharge records, prescriptions, and referral forms
Total time spent (in minutes): 41
Anticipated Discharge: Today
Subjective/Interval History
-
Date of Service: October 14, 2024
resting comfortably
pain controlled
+ flatus, tolerating diet
Objective Data
-
Labs:
Laboratory Results
10/14/24
08:19
WBC 8.8
Hgb 9.9 L
Hct 31.1 L
Plt Count 314 D
Sodium 137
Potassium 3.5
Chloride 97 L
Carbon Dioxide 33 H
BUN 11
Creatinine 0.5 L
Glucose 120 H
Calcium 8.0 L
Total Bilirubin 0.7
AST 27
ALT 23
Alkaline Phosphatase 123
Vital Signs:
Vital Signs
Temp Pulse Resp BP Pulse Ox
98.4 F 93 16 125/63 98
10/14/24 07:55 10/14/24 07:55 10/14/24 08:03 10/14/24 07:55 10/14/24 08:03
I&O
10/13/24 10/14/24 10/15/24
06:59 06:59 06:59
Intake Total 1750 / 1750 700 / 700 240 / 240
Output Total 2500 / 2500 520 / 520
Balance -750 / -750 180 / 180 240 / 240
Physical Exam
-
General: No Apparent Distress
HEENT: Normocephalic and Atraumatic
Respiratory: Negative Wheezes
Cardiac: Regular Rhythm and S1/S2
GI: Soft
Genito-urinary: No Costovertebral Tender
Neuro: AO x 3
Psych: Calm
Data Reviewed
-
Total Time Spent with Patient (in minutes): 42
Labs: Labs Reviewed by me
--- NOTE | 2024-10-14 10:43 | W.DS.TRANS ---
DC Summary - Communications Writer
-
Discharge Instructions:
Discharge Diagnosis/Procedures choledocholithiasis s/p ERCP 5/5 and Lap Linda 5
/6
Diet Low Fat,Regular
Additional Diets If issues with bloating or diarrhea follow a low
-fat diet
Activity As tolerated,No strenuous activity
Additional Activity No heavy lifting (>20 lbs) or strenuous
activities for 2 weeks postoperatively
Driving Restrictions As prior to admission
Bathing Restrictions OK to Shower
Other Services VN,PT,OT
Wound Care Keep incisions clean and dry. Glue will flake
off in 2 to 3 weeks. Stitches will dissolve.
Cover over drain site with dry gauze as needed
for any drainage.
Instructions:
Stand-Alone Forms:
Changes to Home Medications: No
Discharge Medications:
DC Medications w/original date entered in [facility]
duloxetine 20 mg capsule,delayed release (Cymbalta) 20 mg PO QPM Mental Health/Anxiety 06/16/24
duloxetine 30 mg capsule,delayed release (Cymbalta) 30 mg PO DAILY Mental Health/Anxiety 06/16/24
duloxetine 30 mg capsule,delayed release (Cymbalta) 30 mg PO QPM Mental Health/Anxiety 06/16/24
oxycodone 40 mg tablet,crush resistant,extended release 12 hr (OxyContin) 40 mg PO QID@06,12,18,00 Pain 06/16/24
albuterol sulfate 90 mcg/actuation aerosol inhaler 1 puff inhalation R Q4HPRN PRN SOB/wheeze #8.5 grams 06/20/24
esomeprazole magnesium 20 mg capsule,delayed release (Nexium) 20 mg PO DAILY Gastrointestinal Issue 06/28/24
cholecalciferol (vitamin D3) 50 mcg (2,000 unit) capsule (Vitamin D3) 50 mcg PO DAILY #30 caps 07/02/24
clonazepam 0.5 mg tablet 0.25 mg (1/2 x 0.5 mg) PO QID@06,12,18,00 PRN anxiety #10 tabs 07/02/24
tiotropium bromide 2.5 mcg/actuation mist for inhalation (Spiriva Respimat) 2 puff inhalation R DAILY 10/08/24
levofloxacin 500 mg tablet 500 mg PO DAILY@1200 #5 tabs 10/14/24
metronidazole 500 mg tablet 500 mg PO TID #15 tabs 10/14/24
Home Medication Changes
Pending Results: No
Total time spent discharging patient (in min): 41
--- NOTE | 2024-10-14 10:45 | CM ---
Patient possibly will d/c today
Therapy rec home PT at d/c
Met w/ patient and spouse at bedside, are looking forward to d/c today. Both patient and spouse agreeable to home PT, prefers [facility] as they recently had services and was pleased w/ the PT
[facility] referral placed in [facility], liaison made aware
Plan: Home w/ [facility]
--- NOTE | 2024-10-14 11:20 | VNURNOTE ---
Home Health Liaison met with patient and spouse at bedside to discuss [facility] nurse/therapy, visits, schedule and homebound status. They are familiar with [facility] - pt was recently DC'ed from our services. Both are agreeable and understand that visits at
home will be 2-3 x per week to assess and teach medical management. Both are aware that [facility] will contact them for start of care in 1-2 days after discharge from .
[facility] referral completed in [facility].
== END 2024-10-14 11:28 | disposition home health service (06) | DRG 418 ==
LOC: 4 EAST ACU 21:51
PROVIDERS: Clinical Nurse Specialist Family Health; Emergency Medicine; Internal Medicine; Internal Medicine Gastroenterology; Radiology Diagnostic Radiology; Surgery; ADMITTING PHYSICIAN Hospitalist; ATTENDING PHYSICIAN Internal Medicine; CONSULT PHYSICIAN Internal Medicine; CONSULT PHYSICIAN Surgery; EMERGENCY PHYSICIAN Student in an Organized Health Care Education/Training Program; FAMILY PHYSICIAN Hospitalist
PROC: 5A09357 Assistance with Respiratory Ventilation, Less than 24 Consecutive Hours, Continuous Positive Airway Pressure (ICD-10-PCS; 2024-10-09)
PROC: 0FC98ZZ Extirpation of Matter from Common Bile Duct, Via Natural or Artificial Opening Endoscopic (ICD-10-PCS; 2024-10-11)
PROC: 0FN44ZZ Release Gallbladder, Percutaneous Endoscopic Approach (ICD-10-PCS; 2024-10-12)
PROC: 0FT44ZZ Resection of Gallbladder, Percutaneous Endoscopic Approach (ICD-10-PCS; 2024-10-12)
PROC: 0DNU4ZZ Release Omentum, Percutaneous Endoscopic Approach (ICD-10-PCS; 2024-10-12)
PROC: BF131ZZ Fluoroscopy of Gallbladder and Bile Ducts using Low Osmolar Contrast (ICD-10-PCS; 2024-10-12)
DX: K80.66 Calculus of gallbladder and bile duct with acute and chronic cholecystitis without obstruction (principal); F11.20 Opioid dependence, uncomplicated; I69.351 Hemiplegia and hemiparesis following cerebral infarction affecting right dominant side; J96.12 Chronic respiratory failure with hypercapnia; J98.11 Atelectasis; J96.11 Chronic respiratory failure with hypoxia; I97.191 Other postprocedural cardiac functional disturbances following other surgery; Q45.3 Other congenital malformations of pancreas and pancreatic duct; R79.89 Other specified abnormal findings of blood chemistry; N39.3 Stress incontinence (female) (male); K21.9 Gastro-esophageal reflux disease without esophagitis; J44.9 Chronic obstructive pulmonary disease, unspecified; R14.0 Abdominal distension (gaseous); R74.01 Elevation of levels of liver transaminase levels; K66.0 Peritoneal adhesions (postprocedural) (postinfection); R74.8 Abnormal levels of other serum enzymes; F41.9 Anxiety disorder, unspecified; K42.9 Umbilical hernia without obstruction or gangrene; R26.2 Difficulty in walking, not elsewhere classified; Y83.8 Other surgical procedures as the cause of abnormal reaction of the patient, or of later complication, without mention of misadventure at the time of the procedure; Y92.239 Unspecified place in hospital as the place of occurrence of the external cause; Z99.81 Dependence on supplemental oxygen; Z87.891 Personal history of nicotine dependence; Z82.5 Family history of asthma and other chronic lower respiratory diseases; Z82.49 Family history of ischemic heart disease and other diseases of the circulatory system; Z88.1 Allergy status to other antibiotic agents; Z88.0 Allergy status to penicillin; Z88.8 Allergy status to other drugs, medicaments and biological substances; Z87.01 Personal history of pneumonia (recurrent); Z74.01 Bed confinement status
CPT/HCPCS: 88304; 74183; 74300; 74330; 76000; 76700; 80053; 80061; 82248; 83690; 85025; 85027; 88341; 88342; 93005; 94640; 94660; 96360; 97162; 99285; A4300; A9575; C1769